=== PATIENT | male | born 1935 | race Caucasian/White ===

== ENCOUNTER 2019-11-23 13:11 | Inpatient (IN) | payer MEDICARE, OTHER, SELFPAY ==
[2019-11-23] VITALS (13 sets, daily range): BP systolic 120–142; BP diastolic 59–93; PULSE 72–87; RESP 16–30; TEMP 36–36.4; O2SAT 83–99; BMI 32.1
--- NOTE | 2019-11-23 13:15 | DI.RAD.S_ITS ---
PROCEDURE: XR CHEST 2V INDICATIONS: shortness of breath TECHNIQUE: 2 views of the chest were acquired. COMPARISON: None. FINDINGS: Surgical changes and devices: None. Lungs and pleura: Blunting of the left costophrenic angle and the right costophrenic angle is present with partial obscuration of the diaphragms. No large. Pulmonary consolidation is evident. The pulmonary vascular markings are increased with prominent perihilar interstitial markings noted. There is no pneumothorax. Mediastinum: Mediastinal contours are normal. Heart size is enlarged. There is aortic atherosclerosis. There appears to be a hiatal hernia. Bones and chest wall: No suspicious bony abnormalities. Soft tissues appear unremarkable. IMPRESSION: 1. Cardiomegaly with findings suggesting pulmonary edema. Please correlate clinically. 2. Small bilateral effusions and associated atelectasis. Please correlate clinically to exclude superimposed pneumonia. 3. Probable hiatal hernia. Dictated by: Chao Umaña M.D. on 11/23/2019 at 12:48 Approved by: Chao Umaña M.D. on 11/23/2019 at 12:53
--- NOTE | 2019-11-23 13:39 | ED_ITS ---
HPI - SOB/Dyspnea General Chief Complaint: Shortness of Breath/Dyspnea Stated Complaint: CONGESTIVE HEART FAILURE Time Seen by Provider: 11/23/19 13:36 Source: patient Mode of arrival: Ambulatory Limitations: no limitations History of Present Illness HPI Narrative: This is an 84-year-old gentleman who comes emergency department with complaint of right lower extremity swelling, some edema and weeping. Patient describes that he does not have any pain. He states he props his legs up doesn't seem to be much improvement. His daughter states really been 2 weeks. Patient states he has also had some increasing shortness of breath. He typically has shortness of breath but it's been a little bit worse and finds t hat he gets more short of breath when he exerts himself. He has had a cough he states that's more from his throat. It's been nonproductive. He denies any chest pain or pressure. No syncope. No lightheadedness. Patient has history of Alzheimer's chronic kidney disease as well as COPD, CHF, diabetes type 2. Dyslipidemia, hypertension, obstructive sleep apnea, osteoporosis and primary idiopathic dilated cardiomyopathy and right bundle branch block according to his problem list from the [employer]. Patient denies any prior surgical history. He quit smoking about 20 years ago. He has about 1 alcoholic drink weekly, occasionally has edible THC. No allergies to medications. He follows with dermatology neurologist. His daughter is at bedside and help coordinate his medical care for the last 3 years. Appears that she is his DPOA. Related Data Home Medications Medication Instructions Recorded Confirmed albuterol sulfate [ProAir HFA] 2 puff INHALATION Q4H PRN 11/23/19 11/23/19 carvedilol 12.5 mg PO BID 11/23/19 11/23/19 clotrimazole 1 applic TOPICAL DIRECTED 11/23/19 11/23/19 diphenhydramine HCl [Benadryl] 25 mg PO TID 11/23/19 11/23/19 ferrous sulfate 325 mg PO DAILY 11/23/19 11/23/19 folic acid 1 mg PO DAILY 11/23/19 11/23/19 furosemide 40 mg PO MOWEFR 11/23/19 11/23/19 insulin glargine [Lantus U-100 30 unit SUBCUT DAILY 01/02/20 01/02/20 Insulin] melatonin 3 mg PO BEDTIME PRN 11/23/19 11/23/19 methotrexate sodium 10 mg PO QWEEK 11/23/19 11/23/19 mupirocin calcium 1 applic TOPICAL TID 11/23/19 11/23/19 telmisartan 40 mg PO DAILY 11/23/19 11/23/19 tiotropium bromide 1 cap INHALATION DAILY 11/23/19 11/23/19 venlafaxine 37.5 mg PO DAILY 11/23/19 11/23/19 Allergies Allergy/AdvReac Type Severity Reaction Status Date / Time No Known Drug Allergies Allergy Verified 11/23/19 18:42 Review of Systems Review of Systems ROS Unobtainable: All systems reviewed & are unremarkable except as noted in HPI and below Patient History Medical History (Updated 11/23/19 @ 17:47 by Austin Anguiano RN) Age related osteoporosis (Acute) Alzheimer's dementia (Acute) Arthritis of right hip (Acute) Cataract (Acute) Congestive heart failure (CHF) (Acute) COPD (chronic obstructive pulmonary disease) (Acute) Diabetes type 2, controlled (Acute) Hard of hearing (Acute) Hyperlipemia (Acute) Hypertension (Acute) Umbilical hernia (Acute) Social History household members: family Smoking Status: Former smoker alcohol intake: current Smoking Status: Former smoker alcohol intake frequency: a few times a month Substance Use Type: marijuana Exam Narrative Exam Narrative: GENERAL: Alert and oriented x three, obese male in mild distress. HEENT: Head normocephalic, atraumatic, EOMI, pupils reactive, face symmetric, moist mucous membranes NECK: Supple, full range of motion CARDIOVASCULAR: Regular rate and rhythm without murmurs, rubs or gallops. RESPIRATORY: Breath sounds equal bilaterally, no wheezes, patient has crackles bilaterally. No rhonchi. Tachypnea. No accessory muscle use. ABDOMEN: Soft, nontender. Normoactive bowel sounds all 4 quadrants. No guarding or rebound, rigidity, no mass : No CVA tenderness EXTREMITIES: Normal range of motion, no clubbing. Patient has 2+ bilateral lower extremity swelling with pitting edema. Patient has some very superficial scratches with some weeping serous fluid. Neurovascularly intact NEUROLOGICAL: Cranial nerves II through XII grossly intact. Moving all extremities SKIN: Warm, dry, no petechiae, no rashes or lesions. Initial Vital Signs Initial Vital Signs: Vital Signs Temperature 96.8 F L 11/23/19 13:15 Pulse Rate 77 11/23/19 13:15 Respiratory Rate 22 11/23/19 13:15 Blood Pressure 120/59 L 11/23/19 13:15 Pulse Oximetry 92 11/23/19 13:15 Course Orders Ordered: ED Orders 11/23/19 13:15 XR chest 2V Stat EKG-12 Lead Stat Measure peak expiratory flow ONCE RT Consult Eval and Treat Now 11/23/19 13:45 B Type Natriuretic Peptide Stat Complete Blood Count AUTO DIFF Stat Comprehensive Metabolic Panel Stat Lactate (Lactic Acid) Stat Troponin & CK Cardiac Panel Stat Acetaminophen (Tylenol) 650 mg PO Q6HR PRN PRN Reason: Fever/Mild Pain (1-3) Albuterol (Ventolin Hfa) 2 puff INH Q4H PRN PRN Reason: Wheezing Carvedilol (Coreg) 12.5 mg PO BID WILLARD Dextrose (D50w) 25 gm IV PRN PRN PRN Reason: Hypoglycemia Docusate Sodium (Colace) 100 mg PO BID WILLARD Furosemide (Lasix) 60 mg IV Q12H WILLARD Heparin Sodium (Porcine) (Heparin) 5,000 unit SUBCUT BID WILLARD Ceftriaxone Sodium/Dextrose (Rocephin) 1 gm in 50 mls @ 100 mls/hr IV Q24H WILLARD Last Admin: 11/23/19 18:59 Dose: 100 mls/hr Documented by: GPEREZ Sodium Chloride (Normal Saline 0.9%) 250 mls @ 21 mls/hr IV Q24H PRN PRN Reason: Flush Last Admin: 11/23/19 19:04 Dose: 21 mls/hr Documented by: GPEREZ Insulin Aspart (Novolog Flexpen) 12 unit SUBCUT 1700 WILLARD Insulin Aspart (Novolog Flexpen) 0 unit SUBCUT ACHS WILLARD; Protocol Insulin Glargine (Lantus Solostar (Pen)) 28 unit SUBCUT 0800 WILLARD Magnesium Hydroxide (Milk Of Magnesia) 30 ml PO DAILY PRN PRN Reason: Constipation Melatonin (Melatonin) 3 mg PO BEDTIME PRN PRN Reason: Insomnia Sodium Chloride (Normal Saline 0.9% Flush) 10 ml IV PRN PRN PRN Reason: Flush Last Admin: 11/23/19 19:05 Dose: 10 ml Documented by: GPEREZ Sodium Chloride (Normal Saline 0.9% Flush) 10 ml IV BID WILLARD Telmisartan (Micardis) 40 mg PO DAILY WILLARD Tiotropium Hartsel (Spiriva) 18 mcg INH DAILY WILLARD Venlafaxine HCl (Effexor Xr) 37.5 mg PO DAILY WILLARD Discontinued Medications Furosemide (Lasix) 60 mg IV NOW ONE Stop: 11/23/19 14:21 Last Admin: 11/23/19 14:39 Dose: 60 mg Documented by: HFARRINGTO Vital Signs Vital signs: Vital Signs - 8 hr 11/23/19 13:15 11/23/19 13:48 11/23/19 14:30 Temperature 96.8 F L Pulse Rate 77 78 78 Respiratory Rate 22 25 H 23 Blood Pressure 120/59 L Blood Pressure [Left Arm] 120/60 126/61 Pulse Oximetry 92 96 96 11/23/19 15:00 11/23/19 15:38 Temperature Pulse Rate 85 87 Respiratory Rate 17 28 H Blood Pressure Blood Pressure [Left Arm] 125/60 131/64 Pulse Oximetry 96 96 MDM - SOB/Dyspnea Lab Data Attestation: I reviewed the patient's lab results. Result diagrams: 11/23/19 13:45 11/23/19 13:45 Labs: Lab Results 11/23/19 11/23/19 11/23/19 Range/Units 13:45 13:45 13:45 WBC 7.5 (4.5-11.0) X10^3/uL RBC 4.25 L (4.5-5.9) X10^6/uL Hgb 12.7 L (13.5-17.5) g/dL Hct 39.4 L (41-53) % MCV 92.6 (80-100) fL MCH 29.8 (26-34) PG MCHC 32.2 (30-36) % RDW 17.6 H (11.6-14.8) % Plt Count 234 (150-400) X10^3/uL Neut % (Auto) 75.8 H (50-75) % Lymph % (Auto) 13.6 L (25-40) % [place] % (Auto) 7.4 (3-14) % Eos % (Auto) 2.3 (2-4) % Baso % (Auto) 0.9 (0-2) % Neut # (Auto) 5700 (6208-6126) /uL Lymph # (Auto) 1000 L (5781-0350) /uL [place] # (Auto) 600 (0-900) /uL Eos # (Auto) 200 (0-450) /uL Baso # (Auto) 100 (0-100) /uL Sodium 142 (137-145) mmol/L Potassium 4.5 (3.4-5.1) mmol/L Chloride 105 (98-107) mmol/L Carbon Dioxide 29 (22-32) mmol/L BUN 60 H (9-20) mg/dL Creatinine 1.40 H (0.66-1.25) mg/dL Estimated GFR 48.4 L (>60) mL/min BUN/Creatinine Ratio 42.9 H (6-22) Glucose 170 H (80-110) mg/dL Lactate 1.3 (0.7-2.1) mmol/L Calcium 8.4 (8.4-10.2) mg/dL Total Bilirubin 0.4 (0.2-1.3) mg/dL AST 44 (17-59) IU/L ALT 47 (<50) IU/L Alkaline Phosphatase 94 (38-126) U/L Total Creatine Kinase (55-170) U/L CK-MB (CK-2) CK-MB (CK-2) Rel Index Troponin I (0.01-0.034) ng/mL B-Natriuretic Peptide (<100) Total Protein 6.3 (6.3-8.2) g/dL Albumin 3.6 (3.5-5.0) g/dL Globulin 2.7 (1.7-4.1) g/dL Albumin/Globulin Ratio 1.3 (1.0-2.8) 11/23/19 11/23/19 Range/Units 13:45 13:45 WBC (4.5-11.0) X10^3/uL RBC (4.5-5.9) X10^6/uL Hgb (13.5-17.5) g/dL Hct (41-53) % MCV (80-100) fL MCH (26-34) PG MCHC (30-36) % RDW (11.6-14.8) % Plt Count (150-400) X10^3/uL Neut % (Auto) (50-75) % Lymph % (Auto) (25-40) % [place] % (Auto) (3-14) % Eos % (Auto) (2-4) % Baso % (Auto) (0-2) % Neut # (Auto) (1567-8887) /uL Lymph # (Auto) (3234-8509) /uL [place] # (Auto) (0-900) /uL Eos # (Auto) (0-450) /uL Baso # (Auto) (0-100) /uL Sodium (137-145) mmol/L Potassium (3.4-5.1) mmol/L Chloride (98-107) mmol/L Carbon Dioxide (22-32) mmol/L BUN (9-20) mg/dL Creatinine (0.66-1.25) mg/dL Estimated GFR (>60) mL/min BUN/Creatinine Ratio (6-22) Glucose (80-110) mg/dL Lactate (0.7-2.1) mmol/L Calcium (8.4-10.2) mg/dL Total Bilirubin (0.2-1.3) mg/dL AST (17-59) IU/L ALT (<50) IU/L Alkaline Phosphatase (38-126) U/L Total Creatine Kinase 39 L (55-170) U/L CK-MB (CK-2) TNP CK-MB (CK-2) Rel Index TNP Troponin I 0.027 (0.01-0.034) ng/mL B-Natriuretic Peptide 1850 H (<100) Total Protein (6.3-8.2) g/dL Albumin (3.5-5.0) g/dL Globulin (1.7-4.1) g/dL Albumin/Globulin Ratio (1.0-2.8) Imaging Data Chest x-ray: Radiologist's Impression: [address] [address] XRay Report Signed Patient: Tj Bull RMR#: [id number] : 1935Acct:[id number] Age/Sex: 84 / MDate of Service: 11/23/19 Loc: ED Accession Number: [id number] Procedure: XR chest 2V Ordering Provider: Rayne Acosta D.O. PROCEDURE: XR CHEST 2V INDICATIONS: shortness of breath TECHNIQUE: 2 views of the chest were acquired. COMPARISON: None. FINDINGS: Surgical changes and devices: None. Lungs and pleura: Blunting of the left costophrenic angle and the right costophrenic angle is present with partial obscuration of the diaphragms. No large. Pulmonary consolidation is evident. The pulmonary vascular markings are increased with prominent perihilar interstitial markings noted. There is no pneumothorax. Mediastinum: Mediastinal contours are normal. Heart size is enlarged. There is aortic atherosclerosis. There appears to be a hiatal hernia. Bones and chest wall: No suspicious bony abnormalities. Soft tissues appear unremarkable. IMPRESSION: 1. Cardiomegaly with findings suggesting pulmonary edema. Please correlate clinically. 2. Small bilateral effusions and associated atelectasis. Please correlate clinically to exclude superimposed pneumonia. 3. Probable hiatal hernia. Dictated by: Chao Umaña M.D. on 11/23/2019 at 12:48 Approved by: Chao Umaña M.D. on 11/23/2019 at 12:53 ECG Data Attestation: I personally reviewed and interpreted this ECG as follows: Prior ECG tracings: not available for review Interpretation: Sinus rhythm right bundle branch block. Rate of 76 P are 195 QRS of 171 QTC 472. Patient has some depression in lateral lead. Inversion in V1 V2. Patient has an EKG from earlier today but no other prior EKGs available. MDM Narrative Medical decision making narrative: Patient had a DVT formal ultrasound today which was negative but does show some superficial edema. Report did come with the patient. Patient also had a chest x-ray which showed cardiomegaly with interstitial edema, consistent with CHF. Patient clinically appears to be in CHF. I don't have any prior labs or EKGs available. We did contact [facility] as daughter thought he might have a prior but there are none available. According the patient's med list he is on Lasix 40 mg daily, an Arb, carvedilol as well as insulin, tiotropium an albuterol and venlafaxine. Patient has pulmonary edema, bilateral effusions, cardiomegaly, bnp of 1800. RBBB some depression in lateral leads but no priors for comparision. Positive for crackles on exam. Patient drops to 83% when O2 is turned off in the room. Dicussed with Dr. Dillon the hospitalist, he accepts plan for inpatient. Patient received lasix in ED. Discharge Plan Departure Patient Disposition: Admitted As Inpatient Clinical Impression: CHF exacerbation Discharge Date/Time: 11/23/19 17:00 Admit Date/Time: 11/23/19 15:49 Admit Provider: Jonathan Dillon
[2019-11-23 13:59] LABS: Add Manual Diff / Slide Review NO; Basophils Absolute Auto 100 /uL (0-100); Basophils Percent Auto 0.9 % (0-2); Eosinophils Absolute Auto 200 /uL (0-450); Eosinophils Percent Auto 2.3 % (2-4); Hematocrit 39.4 % (41-53); Hemoglobin 12.7 g/dL (13.5-17.5); Lymphocytes Absolute Auto 1000 /uL (1100-4500); Lymphocytes Percent Auto 13.6 % (25-40); Mean Corpuscular HGB Conc 32.2 % (30-36); Mean Corpuscular Hemoglobin 29.8 PG (26-34); Mean Corpuscular Volume 92.6 fL (80-100); Monocytes Absolute Auto 600 /uL (0-900); Monocytes Percent Auto 7.4 % (3-14); Neutrophils Absolute Auto 5700 /uL (1500-7000); Neutrophils Percent Auto 75.8 % (50-75); Platelet Count 234 X10^3/uL (150-400); Red Blood Cell Count 4.25 X10^6/uL (4.5-5.9); Red Cell Distribution Width 17.6 % (11.6-14.8); White Blood Cell Count 7.5 X10^3/uL (4.5-11.0)
--- NOTE | 2019-11-23 14:06 | PC.NURSE ---
pt O2 sats 88% on room air, pt placed on 2L nasal cannula
[2019-11-23 14:15] LABS: Alanine Aminotransferase 47 IU/L (<50); Albumin 3.6 g/dL (3.5-5.0); Albumin Globulin Ratio 1.3 (1.0-2.8); Alkaline Phosphatase 94 U/L (38-126); Aspartate Aminotransferase 44 IU/L (17-59); BUN Creatinine Ratio 42.9 (6-22); Bilirubin Total 0.4 mg/dL (0.2-1.3); Blood Urea Nitrogen 60 mg/dL (9-20); Calcium 8.4 mg/dL (8.4-10.2); Carbon Dioxide 29 mmol/L (22-32); Chloride 105 mmol/L (98-107); Creatine Kinase 39 U/L (55-170); Estimated Glomerular Filt Rate 48.4 mL/min (>60); Globulin 2.7 g/dL (1.7-4.1); Glucose 170 mg/dL (80-110); HEMOLYSIS 15 (0-50); Potassium 4.5 mmol/L (3.4-5.1); Sodium 142 mmol/L (137-145); Total Protein 6.3 g/dL (6.3-8.2)
[2019-11-23 14:16] LABS: Lactate (Lactic Acid) 1.3 mmol/L (0.7-2.1)
[2019-11-23 14:27] LABS: Troponin I 0.027 ng/mL (0.01-0.034)
[2019-11-23 14:37] LABS: B Type Natriuretic Peptide 1850 (<100)
[2019-11-23] MEDS: FUROSEMIDE 100 MG/10 ML VIAL 60 MG IV ×2 (14:39→20:54)
--- NOTE | 2019-11-23 16:33 | PC.NURSE ---
report to hazel velasquez
--- NOTE | 2019-11-23 18:05 | P.HP_ITS ---
History of Present Illness History of Present Illness Date Patient Seen: 11/23/19 Time Patient Seen: 18:06 Chief complaint: CONGESTIVE HEART FAILURE Narrative: Mr. Tj Bull is an 84-year-old male with past medical history of dementia, remote bullous pemphigoid, COPD, diabetes, hypertension, hyperlipidemia, and possible CHF who presented to the emergency room with shortness of breath, right lower extremity pain, and lower extremity edema. History is obtained from the patient as well as his daughter who helps to take care of him. For the past week and a half the daughter has noticed that he has been having worsening shortness of breath, weight gain, worsening lower extremity edema, and profound fatigue. The patient endorses all the above but states that it is only been present for the past 3 days. She states his shortness of breath initially started just with dyspnea on exertion, however now even at rest he appears short of breath and this has been going on for the past 3 days. Both also note some pain in his right lower extremity, with worsening swelling and some redness over the past 3 days. Family has also noted a weight gain of approximately 10 lb based on today's weight. The weight gain is likely over the past week and a half, but the family is unsure as they do not weigh him regularly. He denies any chest pain, fevers, chills, nausea, vomiting. He has no abdominal pain, difficulty voiding, diarrhea, or constipation however he does need to take prunes to stay regular. He initially went to the [facility] for an evaluation, they did a chest x-ray and a right lower extremity ultrasound. The chest x-ray showed vascular congestion and an enlarged heart size. The right lower extremity ultrasound was negative for DVT. They were told to come to the emergency room in [place] for further management. The patient has recently moved here and has not established care. Family is not fully aware of all of his medical issues. Records were sent from the [facility] which helped to clarify his past medical history. The family does note that he was on hospice, but turned around when care providers changed and he has been doing fairly well recently. He does have some dementia, which they relate as Alzheimer, but the true cause is unknown. 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 He quit smoking 20 years ago, he rarely drinks alcohol, he denies illicit substance use, but daughter notes that he does ingest marijuana edibles. In the emergency room, per the ED provider when taken off of nasal cannula he desaturated to 83%. He is saturating well on 2 L nasal cannula. Otherwise his vital signs were unremarkable. He was given 60 mg of IV Lasix. Laboratory studies revealed a WBC of 7.5, hemoglobin 12.7, platelet 234. Chemistries notable for BUN of 60, creatinine 1.4 (unknown baseline), glucose 170, normal lactate, troponin 0.027, BNP 1850. Chest x-ray shows interstitial prominence consistent with volume overload, cardiomegaly, and small bilateral pleural eff usions. EKG showing a right bundle branch block, which is of unknown duration per naval physician's notes. There does not appear to be evidence of active ischemia, and there are no significant changes over the course of today. He is admitted to Medicine for further evaluation of his decompensated heart failure. Patient History Medical History (Updated 11/23/19 @ 17:47 by Austin Anguiano RN) Age related osteoporosis (Acute) Alzheimer's dementia (Acute) Arthritis of right hip (Acute) Cataract (Acute) Congestive heart failure (CHF) (Acute) COPD (chronic obstructive pulmonary disease) (Acute) Diabetes type 2, controlled (Acute) Hard of hearing (Acute) Hyperlipemia (Acute) Hypertension (Acute) Umbilical hernia (Acute) Family & Social History Safety & Behavioral: Feels Safe in Current Yes Environment Been Physically Hurt or No Threatened By a Person Tobacco & Substance use: Smoking Status Former smoker alcohol intake frequency a few times a month Substance Use Type marijuana Meds Home Medications and Allergies Home Medications Medication Instructions Recorded Confirmed Type albuterol sulfate [ProAir HFA] 2 puff INHALATION Q4H PRN 11/23/19 11/23/19 History carvedilol 12.5 mg PO BID 11/23/19 11/23/19 History clotrimazole 1 applic TOPICAL DIRECTED 11/23/19 11/23/19 History diphenhydramine HCl [Benadryl] 25 mg PO TID 11/23/19 11/23/19 History ferrous sulfate 325 mg PO DAILY 11/23/19 11/23/19 History folic acid 1 mg PO DAILY 11/23/19 11/23/19 History furosemide 40 mg PO MOWEFR 11/23/19 11/23/19 History insulin glargine [Lantus U-100 30 unit SUBCUT DAILY 11/23/19 11/23/19 History Insulin] melatonin 3 mg PO BEDTIME PRN 11/23/19 11/23/19 History methotrexate sodium 10 mg PO QWEEK 11/23/19 11/23/19 History mupirocin calcium 1 applic TOPICAL TID 11/23/19 11/23/19 History telmisartan 40 mg PO DAILY 11/23/19 11/23/19 History tiotropium bromide 1 cap INHALATION DAILY 11/23/19 11/23/19 History venlafaxine 37.5 mg PO DAILY 11/23/19 11/23/19 History Allergies Allergy/AdvReac Type Severity Reaction Status Date / Time No Known Drug Allergies Allergy Verified 11/23/19 18:42 Review of Systems Review of Systems Narrative: All other systems reviewed with the patient and are negative unless otherwise stated. Exam Vital Signs (past 8 hours): - 11/23/19 13:15 11/23/19 13:48 11/23/19 14:30 Temperature 96.8 F L Pulse Rate 77 78 78 Respiratory Rate 22 25 H 23 Blood Pressure 120/59 L Blood Pressure [Left Arm] 120/60 126/61 Pulse Oximetry 92 96 96 11/23/19 15:00 11/23/19 15:38 11/23/19 16:00 Temperature Pulse Rate 85 87 77 Respiratory Rate 17 28 H 30 H Blood Pressure Blood Pressure [Left Arm] 125/60 131/64 126/67 Pulse Oximetry 96 96 99 11/23/19 16:14 Temperature Pulse Rate 78 Respiratory Rate 19 Blood Pressure Blood Pressure [Left Arm] 126/67 Pulse Oximetry 99 Oxygen Delivery Method Nasal Cannula Oxygen Flow Rate 2 Narrative Exam Narrative: GENERAL APPEARANCE: Elderly male, slumped in hospital bed, in no acute distress. He does get winded with prolonged speaking. SKIN: Inspection of the skin reveals some small bruising in his upper ext remities bilaterally. There are no bullous appearing lesions. His right lower extremity is erythematous and warm on the anterior aspect. Area of erythema extends from just below his knee to his ankle, and is approximately half the circumference of his calf. There are also some lacerations on the anterior part of his right lower extremity which appear to be scratch clements. HEENT: The sclerae were anicteric and conjunctivae were pink and moist. Extraocular movements were intact and pupils were equal, round with normal accommodation. External inspection of the ears and nose showed no scars, le sions, or masses. Lips, teeth, and gums showed normal mucosa. The oral mucosa, hard and soft palate, tongue and posterior pharynx were unremarkable. NECK: Supple and symmetric. There was no thyroid enlargement, and no tenderness, or masses were felt. + JVD CHEST: Normal AP diameter and normal contour without any kyphoscoliosis. LUNGS: Diminished breath sounds at the left lung base, bibasilar crackles slightly more prominent on the right. No wheezing. CARDIOVASCULAR: There was a regular rate and rhythm without any murmurs, gallops, rubs. Peripheral pulses were 2+ and symmetric. ABDOMEN: Soft and nontender with normal bowel sounds. No ascites was noted. MUSCULOSKELETAL: There was no tenderness or effusions noted. Muscle strength and tone were normal. EXTREMITIES: No cyanosis, clubbing. There is 1 to 2+ pitting edema bilaterally in the lower extremities. With erythema and warmth as noted above. NEUROLOGIC: Alert and oriented x 3. Normal affect. Some cognitive impairment is evident. Strength is +5/5 in the Upper Extremities and Lower Extremities Bilaterally. Sensation to touch was normal. Objective ECG Impression: Right bundle-branch block, no evidence of active ischemia. Normal sinus rhythm. Imaging Chest x-ray: My impression: Small bilateral pleural effusions, cardiomegaly, moderate interstitial prominence consistent with fluid overload. Labs Result Diagrams: 11/23/19 13:45 11/23/19 13:45 Labs: Laboratory Results - last 24 hr 11/23/19 11/23/19 11/23/19 13:45 13:45 13:45 WBC 7.5 RBC 4.25 L Hgb 12.7 L Hct 39.4 L MCV 92.6 MCH 29.8 MCHC 32.2 RDW 17.6 H Plt Count 234 Neut % (Auto) 75.8 H Lymph % (Auto) 13.6 L [place] % (Auto) 7.4 Eos % (Auto) 2.3 Baso % (Auto) 0.9 Neut # (Auto) 5700 Lymph # (Auto) 1000 L [place] # (Auto) 600 Eos # (Auto) 200 Baso # (Auto) 100 Sodium 142 Potassium 4.5 Chloride 105 Carbon Dioxide 29 BUN 60 H Creatinine 1.40 H Estimated GFR 48.4 L BUN/Creatinine Ratio 42.9 H Glucose 170 H Lactate 1.3 Calcium 8.4 Total Bilirubin 0.4 AST 44 ALT 47 Alkaline Phosphatase 94 Total Creatine Kinase CK-MB (CK-2) CK-MB (CK-2) Rel Index Troponin I B-Natriuretic Peptide Total Protein 6.3 Albumin 3.6 Globulin 2.7 Albumin/Globulin Ratio 1.3 11/23/19 11/23/19 13:45 13:45 WBC RBC Hgb Hct MCV MCH MCHC RDW Plt Count Neut % (Auto) Lymph % (Auto) [place] % (Auto) Eos % (Auto) Baso % (Auto) Neut # (Auto) Lymph # (Auto) [place] # (Auto) Eos # (Auto) Baso # (Auto) Sodium Potassium Chloride Carbon Dioxide BUN Creatinine Estimated GFR BUN/Creatinine Ratio Glucose Lactate Calcium Total Bilirubin AST ALT Alkaline Phosphatase Total Creatine Kinase 39 L CK-MB (CK-2) TNP CK-MB (CK-2) Rel Index TNP Troponin I 0.027 B-Natriuretic Peptide 1850 H Total Protein Albumin Globulin Albumin/Globulin Ratio Assessment & Plan Assessment & Plan narrative: Mr. Tj Bull is an 84-year-old male with past medical history of dementia, remote bullous pemphigoid, COPD, diabetes, hypertension, and possible CHF who presented to the emergency room with short ness of breath, right leg pain, and lower extremity edema. He is admitted with decompensated heart failure and RLE cellulitis. 1. Acute decompensated heart failure with unknown ejection fraction, present on admission -suspect reduced ejection fraction based on outpatient notes and patient's medications, however unclear and it is not known when his last echocardiogram was. Clinically he has weight gain, fatigue, JVD, lower extremity edema, bibasilar crackles and an elevated BNP with cardiomegaly on chest x-ray all consistent with heart failure. -continue Lasix 60 mg IV b.i.d. -strict Is and Os, daily weights, 1.5 L fluid restriction -obtain echocardiogram -can continue home coreg 12.5 mg BID (home dosing) and telmisartan 40 mg daily -risk stratify with TSH, A1c, and lipid panel -PT/OT evaluation -dietary consult 2. Acute hypoxemic respiratory failure, present on admission -patient desaturates to 83% on room air per ED report. He is saturating well on 2 L. this is likely secondary to decompensated heart failure above. -continue diuresis and management of heart failure as noted in problem 1. 3. Right lower extremity cellulitis, acute, present on admission -patient with warmth and erythema of his right leg. There is no evidence of purulence. He does have scratch clements and venous stasis changes bilaterally. US for DVT performed at [facility] was negative. -start ceftriaxone 1 g Q 24 hours 4. Diabetes, chronic, present on admission, unknown control - -continue home regimen 28 units of Lantus in a.m., he takes lispro 12 units at dinner time only. -add on sliding scale coverage -A1c as noted above 5. COPD, chronic, stable -no wheezing on exam and acute respiratory failure likely secondary to volume overload. -respiratory eval and treat -continue home Spiriva, and as needed albuterol 6. Hypertension, chronic, stable -continue home medications as noted above in problem 1 7. Elevated creatinine, unknown chronicity -creatinine of 1.4 on admission. Unknown baseline. He has multiple other chronic medical conditions and likely CKD. However there is no previous lab work available to compare. -continue to monitor renal function -avoid nephrotoxic medications -treat underlying decompensated heart failure as noted above in problem 1 -obtain postvoid residual as there is an outpatient renal ultrasound showing a postvoid residual of approximately 400 cc and findings consistent with chronic bladder outlet obstruction. -consider Flomax depending on postvoid residual. -consider repeat renal ultrasound Code: full, patient's surrogate decision maker is his daughter. Dispo: Admitted as inpatient as his stay is likely to exceed 2 midnights DVT: Heparin subcu
--- NOTE | 2019-11-23 18:30 | DI.ECHO.S_ITS ---
[facility] +---------+ : : [address] [place] [address] : : : : [id number] : : : : Phone: [phone] Echocardiogram Report + + :Name: JEREMY LAM Study Date: 11/24/2019 Height: 67 in : :[facility] Weight: 205 lb : : Gender: Male BSA: 2.0 m2 : :: 1935 Age: 84 yrs BP: 133/81 mmHg: :Reason For Study: DECOMPENSATED HF : : Performed By: Christopher Valle : :Referring: EVERT ROSA : + + Interpretation Summary Sinus rhythm with wide QRS complexes. Borderline dilated LV; borderline concentric LVH. EF is 30-35%. There are focal wall motion abnormalities in LCX distribution. There is basal inferolateral, basal anterolateral akinesis, mid-inferolateral and mid- anterolateral akinesis. Stage II diastolic dysfunction. EPSS is 1.4 cm further consistent with cardiomyopathy. No significant valvular abnormalities. There is moderate left pleural effusion. Compared to prior study at [facility] in 2009, cardiomyopathy is unchanged. EF is unchanged at around 30%. However, focal wall motion abnormalities and pleural effusion are newly described. Report given to CAROL Doan at . Procedure: A two-dimensional transthoracic echocardiogram with color flow and Doppler was performed. The study quality was technically good. There is no prior echocardiogram noted for this patient. The patient was in normal sinus rhythm during the exam. Left Ventricle: The left ventricle is borderline dilated. Left ventricular wall thickness is borderline increased. The ejection fraction is estimated to be 30-35%. There are focal wall motion abnormalities in LCX distribution. There is basal inferolateral, basal anterolateral akinesis, mid-inferolateral and mid-anterolateral akinesis. Right Ventricle: The right ventricle is normal size. Right ventricular systolic function is mildly reduced. Atria: The left atrium is moderately dilated. The right atrium is mildly dilated. The interatrial septum is intact with no evidence for an atrial septal defect. Mitral Valve: The mitral valve is normal in structure and function. There is mild to moderate mitral regurgitation. Aortic Valve: The aortic valve is trileaflet. The aortic valve opens well. No aortic regurgitation is present. Tricuspid Valve: The tricuspid valve is normal in structure and function. There is trace tricuspid regurgitation. The right ventricular systolic pressure is estimated to be at least 40 mmHg based on an estimated right atrial pressure of 15 mm Hg. Pulmonic Valve: The pulmonic valve is normal in structure and function. There is trace pulmonic regurgitation. Great Vessels: The aortic root is normal size. The ascending aorta is mildly enlarged. The pulmonary artery is normal size. The IVC is dilated (diameter is greater than 2.1 cm) and it collapses less than 50% with a sniff. This suggests a high right atrial pressure of 15 mm Hg. Pericardium/ Pleura There is no pericardial effusion. There is a moderate left-sided pleural effusion. MMode/2D Measurements & Calculations LVIDd: 6.0 cm LVOT diam: 2.0 cm LVIDs: 4.9 cm Ao root diam: 2.9 cm FS: 17.6 % Aortic Jxn: 2.5 cm EPSS: 1.4 cm asc Aorta Diam: 3.5 cm IVSd: 1.2 cm LVPWd: 1.1 cm LV guzman. diameter/BSA (cm/m^2): 2.9 LV sys. diameter/BSA (cm/m^2): 2.4 LA dimension: 5.1 cm RA long axis: 5.6 cm LA A2 area: 29.8 cm2 RA area: 22.8 cm2 LA A4 area: 24.6 cm2 RA vol: 79.5 ml LA length (vol): 6.4 cm RA : 38.9 ml/m2 LA vol: 96.7 ml IVC diam: 2.5 cm LA vol index: 47.3 ml/m2 RVD1 (basal): 4.4 cm RVD2 (mid): 4.3 cm Doppler Measurements & Calculations Ao V2 max: 131.4 cm/sec LVOT Max Jacky: 80.8 cm/sec Ao V2 mean: 96.1 cm/sec LV V1 max P.6 mmHg Ao max P.9 mmHg LV V1 VTI: 16.3 cm Ao mean P.9 mmHg ALBIN(I,D): 2.0 cm2 Ao V2 VTI: 27.0 cm ALBIN(V,D): 2.0 cm2 sev ratio: 0.60 ALBIN indexed to BSA (cm^2/m^2): 0.96 MV E max jacky: 103.8 cm/sec TR max jacky: 251.4 cm/sec MV A max jacky: 48.9 cm/sec TR max P.3 mmHg MV E/A: 2.1 PA V2 max: 74.2 cm/sec Med Peak E' Jacky: 2.7 cm/sec PA V2 mean: 53.9 cm/sec E/E' med: 37.9 PA mean P.3 mmHg Lat Peak E' Jacky: 4.5 cm/sec PA pr(Accel): 39.1 mmHg E/E' lat: 22.9 PA Accel Time: 0.10 sec E/e' average: 30.4 MV dec time: 0.19 sec SV(LVOT): 52.8 ml Electronically signed by: Noemi Retana M.D. on Reading Physician:11/24/2019 06:44 PM
[2019-11-23] MEDS: CEFTRIAXONE 1 GM/50 ML FROZ.PIGGY IV (18:59)
[2019-11-23] MEDS: SODIUM CHLORIDE 0.9% 250 ML 21 ML IV (19:04)
[2019-11-23] MEDS: SODIUM CHLORIDE 0.9% FLUSH 10 ML IV ×2 (19:05→20:55)
[2019-11-23] MEDS: DOCUSATE 100 MG CAPSULE PO (20:59)
[2019-11-23] MEDS: carvediloL 12.5 MG TABLET PO (20:59)
[2019-11-23] MEDS: HEPARIN 5,000 UNIT/ML VIAL 5000 UNIT SUBCUT (20:59)
--- NOTE | 2019-11-23 22:41 | PC.ADMIT ---
[address] Admission Note: The patient,Tj Bull,84 y/o, was given written information regarding hospital policies, unit procedures and contact persons. Patient's smoking status: Former smoker. Pt arrived to room 208 at approx 1645. able to trans to bed with 1-2 pa. SOB with activity and rest. 2L NC sats 96%. Denies pain. Oriented to room and call system. Chronic wounds noted to buttocks; photos taken on document camera. Support dtr at bedside helping with admission questions. Fluid restriction implemented per MD orders. Bed alarm on for safety. Advised pt to call staff for assistance. Vital Signs - 8 hr 11/23/19 15:00 11/23/19 15:38 11/23/19 16:00 Temperature Pulse Rate 85 87 77 Respiratory Rate 17 28 H 30 H Blood Pressure Blood Pressure [Left Arm] 125/60 131/64 126/67 Pulse Oximetry 96 96 99 11/23/19 16:14 11/23/19 16:45 11/23/19 18:37 Temperature 97.3 F L Pulse Rate 78 81 Respiratory Rate 19 20 Blood Pressure 136/93 H Blood Pressure [Left Arm] 126/67 Pulse Oximetry 99 98 96 11/23/19 19:36 11/23/19 19:53 11/23/19 21:13 Temperature 97.3 F L Pulse Rate 82 72 Respiratory Rate 18 16 Blood Pressure 142/81 H Blood Pressure [Left Arm] Pulse Oximetry 98 97
[2019-11-24] VITALS (11 sets, daily range): BP systolic 122–137; BP diastolic 69–81; PULSE 61–74; RESP 16–18; TEMP 36–36.6; O2SAT 88–98; BMI 32.1
--- NOTE | 2019-11-24 05:14 | PC.NURSE ---
Patient will desat to the 60-70's when standing on 2L by NC.
[2019-11-24 07:16] LABS: Add Manual Diff / Slide Review NO; Basophils Absolute Auto 0 /uL (0-100); Basophils Percent Auto 0.7 % (0-2); Eosinophils Absolute Auto 300 /uL (0-450); Eosinophils Percent Auto 4.5 % (2-4); Hematocrit 38.1 % (41-53); Hemoglobin 12.1 g/dL (13.5-17.5); Lymphocytes Absolute Auto 900 /uL (1100-4500); Lymphocytes Percent Auto 14.6 % (25-40); Mean Corpuscular HGB Conc 31.8 % (30-36); Mean Corpuscular Hemoglobin 29.4 PG (26-34); Mean Corpuscular Volume 92.6 fL (80-100); Monocytes Absolute Auto 700 /uL (0-900); Monocytes Percent Auto 11.2 % (3-14); Neutrophils Absolute Auto 4500 /uL (1500-7000); Platelet Count 235 X10^3/uL (150-400); Red Blood Cell Count 4.11 X10^6/uL (4.5-5.9); Red Cell Distribution Width 17.7 % (11.6-14.8); White Blood Cell Count 6.5 X10^3/uL (4.5-11.0)
[2019-11-24 07:31] LABS: BUN Creatinine Ratio 45.8 (6-22); Blood Urea Nitrogen 55 mg/dL (9-20); Calcium 8.3 mg/dL (8.4-10.2); Carbon Dioxide 28 mmol/L (22-32); Chloride 105 mmol/L (98-107); Cholesterol 90 mg/dL (140-199); Estimated Glomerular Filt Rate 57.8 mL/min (>60); Glucose 94 mg/dL (80-110); HDL Cholesterol 29 mg/dL (40-60); HEMOLYSIS < 15 (0-50); Hemoglobin A1C% w Est Avg Glu 5.9 % (4.0-6.0); LDL Cholesterol Calculated 48 mg/dL (<100); Magnesium 2.1 mg/dL (1.6-2.3); Potassium 4.3 mmol/L (3.4-5.1); Sodium 140 mmol/L (137-145); Triglycerides 63 mg/dL (35-150)
[2019-11-24 08:01] LABS: TSH w/ Reflex to FT4 4.68 uIU/mL (0.47-4.68)
[2019-11-24] MEDS: HEPARIN 5,000 UNIT/ML VIAL 5000 UNIT SUBCUT ×2 (08:57→21:14)
[2019-11-24] MEDS: DOCUSATE 100 MG CAPSULE PO ×2 (08:57→21:14)
[2019-11-24] MEDS: TELMISARTAN 40 MG TABLET PO (08:57)
[2019-11-24] MEDS: VENLAFAXINE ER 37.5 MG CAP PO (08:57)
[2019-11-24] MEDS: carvediloL 12.5 MG TABLET PO ×2 (08:57→21:14)
[2019-11-24] MEDS: FUROSEMIDE 100 MG/10 ML VIAL 60 MG IV ×2 (09:00→19:46)
--- NOTE | 2019-11-24 09:00 | CM.DANOTE ---
Addendum entered by Kim Kim LPN 11/24/19 13:43: Met this afternoon with pt's DPOA daughter Gerald. She clarifies that she and her have cared for pt for the last 3 years. Prior to this she states her sister was the caregiver, pt's health failed under her care and her sister had health issues that no longer supported this setup. The sister is no longer involved in any way in the patient's care. POLST: is noted: signed by Gearld as DPOA in 2017 and with DNAR and Medical Interventions: Limited listed. OT Isaura was just finishing up a treatment session and noted that the therapists were recommending a d/c to the home setting and home health services. Gerald states in the time she has cared for pt he has never had HH. Discussed agency choice list: as no given choice: used vendor lists sep up by CM aviation project manager: for this week: [facility]. Referral to [facility] via phone discussion and fax/CMsp: faxing. Face/Face started. Pt will benefit from HH RN,OT/PT/ICE CREAM VAN VENDOR: pt has needs for home safety eval, energy conservation techniques, wound care, including open areas on buttocks, shower assist, medication management and reconciliation. Confirmed that PCP is Dr. Coffey ([facility]) at the [facility]. Gerald is updated and given [facility] brochure. P: home setting when stable for same with [facility] as noted. Need: signature on Face/Face and final HH orders. Original Note: Discharge Planning/Care Management DCP: assessment: case received, EMR reviewed and met with pt. Introduced self and role. PT is an 84 year old male who admitted yesterday evening to care of hospitalist team. PCP: [facility]: pt was there yesterday and sent from the clinic to ER. Payer: Medicare and for Life Admission status: in review: per JAVON Koch. DPOA: daughter Gerald Malloy: cell: [phone]. Pt is able to state that he does live with Gerald and Bill and documentation confirms same. He is unable at this time to provide and other information re his living situation. Pt carries diagnoses of dementia: type unspecified, COPD, IDDM and now with ? of CHF. He also is noted to have RLE swollen, painful and red. A note does refer to a prior hospice plan and apparently transition off of this program. PT and OT have been ordered. P: discuss in Team Rounds. Reach out to Gerald as more is known to define and assist with d/c issues and options. Advanced directive, confirm from FAMILY Start: 11/23/19 18:36 Freq: Q24H Status: Active Protocol: Document 11/23/19 21:12 GMP (Rec: 11/23/19 21:13 GMP [id number]) Advance Directive, confirm on record Time 21:12 Person contacted pt Copy received No CM Discharge Assessment Start: 11/24/19 08:57 Freq: Status: Active Protocol: Document 11/24/19 08:57 ITV (Rec: 11/24/19 09:00 ITV [id number]) Discharge Planning Assessment Advance Directives? Yes Advance Directives on File No History Provided By Patient,Medical Record Has Patient been admitted in last 30 No days? Prior Living Arrangements House Comment lives with daughter Gerald Malloy and her Jose . Household Members family Is patient alert and oriented? No: alert, not oriented at this time Whiteboard Updated in Patient Room with Yes name and ext. # of Arts Administrator Or Manager Review Status In Process
[2019-11-24] MEDS: SODIUM CHLORIDE 0.9% FLUSH 10 ML IV ×3 (09:01→21:15)
[2019-11-24] MEDS: INSULIN GLARGINE 100 UNIT/ML 3ML PEN 28 UNIT SUBCUT (09:03)
--- NOTE | 2019-11-24 10:17 | PC.NURSE ---
Addendum entered by Nidia Fitzgerald R.N. 11/24/19 14:25: Pts lower legs with with 2+ pitting edema, r.leg is more swollen than l. and is red and warm to touch . states that lower legs are looking better. Daughter in room visiting now. Addendum entered by Nidia Fitzgerald R.N. 11/24/19 11:51: Pt using urinal and voided on the floor, he was also incontinent of urine in his brief. Tj was given 60mg of iv lasix. He is back to bed now and having is echocardiogram done and then will eat lunch. Will do blood sugar after he is done. Original Note: Assess- Patient is A&Ox2, he denies pain. Patient has a lot of skin issues, please see physical assessment. 2 open area's to coccyx and buttocks cleaned and barrier cream applied. Will apply allevyn dressings of barrier cream not sticking to bottom. Pt is forgeful but has not tried to get out of bed this morning. Worked with physical therapy and ambulated with walker and gait belt. His oxygen saturation did drop to 78%. Tj does have course crackles through his lung pena. Given 60mg of iv lasix and patient tolerated this well. Sitting up in chair and watching television.
[2019-11-24] MEDS: TIOTROPIUM BROMIDE 18 MCG INHALER INH (10:23)
--- NOTE | 2019-11-24 10:52 | PM.PN.1 ---
Subjective Subjective Date Patient Seen: 11/24/19 Time Patient Seen: 10:52 Interval history: Mr. Tj Bull is an 84-year-old male with past medical history of dementia, remote bullous pemphigoid, COPD, diabetes, hypertension, hyperlipidemia, and possible CHF who presented to the emergency room with shortness of breath, right lower extremity pain, and lower extremity edema. He is seen today for follow-up of congestive heart failure and right lower extremity cellulitis. Patient states that he feels fine, and denies shortness of breath. He denies right lower extremity pain today. He denies any fevers, chills, nausea, vomiting. He is tolerating a diet and voiding without difficulty. He is still slightly hypoxic at 80% on 2 L. he still has significant bibasilar crackles and lower extremity edema. He put out almost 2 L yesterday, will continue with current regimen for diuresis. He is currently pending an echocardiogram. Exam Vital Signs (past 8 hours): - 11/24/19 04:00 11/24/19 04:45 11/24/19 08:00 Temperature 97.8 F 97.4 F L Pulse Rate 67 74 Respiratory Rate 18 18 Blood Pressure 122/75 137/69 Pulse Oximetry 96 97 98 11/24/19 09:57 11/24/19 10:23 Temperature Pulse Rate 68 Respiratory Rate 16 Blood Pressure Pulse Oximetry 95 88 L Oxygen Delivery Method Room Air Oxygen Flow Rate 2 Narrative Exam Narrative: GENERAL APPEARANCE: Elderly male, slumped in hospital bed, in no acute distress. He does get winded with prolonged speaking but is slightly improved today. SKIN: Inspection of the skin reveals some small bruising in his upper extremities bilaterally. There are no bullous appearing lesions. His right lower extremity is erythematous and warm on the anterior aspect. Area of erythema is improved and has shrunken today to involve 1/4 of his calf circumference. There are also some lacerations on the anterior part of his right lower extremity which appear to be scratch clements. He is mildly tender and warm on his RLE over the area of erythema. This appears improved from previous exam. HEENT: The sclerae were anicteric and conjunctivae were pink and moist. Extraocular movements were intact and pupils were equal, round with normal accommodation. External inspection of the ears and nose showed no scars, lesions, or masses. Lips, teeth, and gums showed normal mucosa. The oral mucosa, hard and soft palate, tongue and posterior pharynx were unremarkable. NECK: Supple and symmetric. There was no thyroid enlargement, and no tenderness, or masses were felt. + JVD CHEST: Normal AP diameter and normal contour without any kyphoscoliosis. LUNGS: Diminished breath sounds at the left lung base, bibasilar crackles slightly more prominent on the right. No wheezing. CARDIOVASCULAR: There was a regular rate and rhythm without any murmurs, gallops, rubs. Peripheral pulses were 2+ and symmetric. ABDOMEN: Soft and nontender with normal bowel sounds. No ascites was noted. MUSCULOSKELETAL: There was no tenderness or effusions noted. Muscle strength and tone were normal. EXTREMITIES: No cyanosis, clubbing. There is 1 to 2+ pitting edema bilaterally in the lower extremities. With erythema and warmth as noted above. NEUROLOGIC: Alert and oriented x 3. Normal affect. Some cognitive impairment is evident. Strength is +5/5 in the Upper Extremities and Lower Extremities Bilaterally. Sensation to touch was normal. Objective Labs Result Diagrams: 11/24/19 06:37 11/24/19 06:37 Labs: Laboratory Results - last 24 hr 11/23/19 11/23/19 11/23/19 13:45 13:45 13:45 WBC 7.5 RBC 4.25 L Hgb 12.7 L Hct 39.4 L MCV 92.6 MCH 29.8 MCHC 32.2 RDW 17.6 H Plt Count 234 Neut % (Auto) 75.8 H Lymph % (Auto) 13.6 L Forrest % (Auto) 7.4 Eos % (Auto) 2.3 Baso % (Auto) 0.9 Neut # (Auto) 5700 Lymph # (Auto) 1000 L Forrest # (Auto) 600 Eos # (Auto) 200 Baso # (Auto) 100 Sodium 142 Potassium 4.5 Chloride 105 Carbon Dioxide 29 BUN 60 H Creatinine 1.40 H Estimated GFR 48.4 L BUN/Creatinine Ratio 42.9 H Glucose 170 H Hemoglobin A1c Lactate 1.3 Calcium 8.4 Magnesium Total Bilirubin 0.4 AST 44 ALT 47 Alkaline Phosphatase 94 Total Creatine Kinase CK-MB (CK-2) CK-MB (CK-2) Rel Index Troponin I B-Natriuretic Peptide Total Protein 6.3 Albumin 3.6 Globulin 2.7 Albumin/Globulin Ratio 1.3 Triglycerides Cholesterol LDL Cholesterol, Calc HDL Cholesterol TSH 11/23/19 11/23/19 11/24/19 13:45 13:45 06:37 WBC 6.5 RBC 4.11 L Hgb 12.1 L Hct 38.1 L MCV 92.6 MCH 29.4 MCHC 31.8 RDW 17.7 H Plt Count 235 Neut % (Auto) 69.0 Lymph % (Auto) 14.6 L Forrest % (Auto) 11.2 Eos % (Auto) 4.5 H Baso % (Auto) 0.7 Neut # (Auto) 4500 Lymph # (Auto) 900 L Forrest # (Auto) 700 Eos # (Auto) 300 Baso # (Auto) 0 Sodium Potassium Chloride Carbon Dioxide BUN Creatinine Estimated GFR BUN/Creatinine Ratio Glucose Hemoglobin A1c Lactate Calcium Magnesium Total Bilirubin AST ALT Alkaline Phosphatase Total Creatine Kinase 39 L CK-MB (CK-2) TNP CK-MB (CK-2) Rel Index TNP Troponin I 0.027 B-Natriuretic Peptide 1850 H Total Protein Albumin Globulin Albumin/Globulin Ratio Triglycerides Cholesterol LDL Cholesterol, Calc HDL Cholesterol TSH 11/24/19 11/24/19 11/24/19 06:37 06:37 06:37 WBC RBC Hgb Hct MCV MCH MCHC RDW Plt Count Neut % (Auto) Lymph % (Auto) Forrest % (Auto) Eos % (Auto) Baso % (Auto) Neut # (Auto) Lymph # (Auto) Forrest # (Auto) Eos # (Auto) Baso # (Auto) Sodium 140 Potassium 4.3 Chloride 105 Carbon Dioxide 28 BUN 55 H Creatinine 1.20 Estimated GFR 57.8 L BUN/Creatinine Ratio 45.8 H Glucose 94 Hemoglobin A1c 5.9 Lactate Calcium 8.3 L Magnesium 2.1 Total Bilirubin AST ALT Alkaline Phosphatase Total Creatine Kinase CK-MB (CK-2) CK-MB (CK-2) Rel Index Troponin I B-Natriuretic Peptide Total Protein Albumin Globulin Albumin/Globulin Ratio Triglycerides 63 Cholesterol 90 L LDL Cholesterol, Calc 48 HDL Cholesterol 29 L TSH 4.68 Assessment & Plan Assessment & Plan narrative: Mr. Tj Bull is an 84-year-old male with past medical history of dementia, remote bullous pemphigoid, COPD, diabetes, hypertension, and possible CHF who presented to the emergency room with shortness of breath, right leg pain, and lower extremity edema. He is admitted with decompensated heart failure and RLE cellulitis. 1. Acute decompensated heart failure with unknown ejection fraction, present on admission -suspect reduced ejection fraction based on outpatient notes and patient's medications, however unclear and it is not known when his last echocardiogram was. Clinically he has weight gain, fatigue, JVD, lower extremity edema, bibasilar crackles and an elevated BNP with cardiomegaly on chest x-ray all consistent with heart failure. -continue Lasix 60 mg IV b.i.d. -strict Is and Os, daily weights, 1.5 L fluid restriction -TTE today pending. -can continue home coreg 12.5 mg BID (home dosing) and telmisartan 40 mg daily -risk stratification: TSH 4.68, Total Cholesterol 90, LDL 48. A1c of 5.9% -PT/OT evaluation -dietary consult 2. Acute hypoxemic respiratory failure, present on admission -patient desaturates to 83% on room air per ED report. He is saturating well on 2 L. this is likely secondary to decompensated heart failure above. -continue diuresis and management of heart failure as noted in problem 1. 3. Right lower extremity cellulitis, acute, present on admission -patient with warmth and erythema of his right leg. There is no evidence of purulence. He does have scratch clements and venous stasis changes bilaterally. US for DVT performed at [facility] was negative. His cellulitis appears to be improving with antibiotic therapy. -continue ceftriaxone 1 g Q 24 hours x 7 days (day 2/7), can transition to oral antibiotics upon discharge. 4. Diabetes, chronic, present on admission, good control - -continue home regimen 28 units of Lantus in a.m., he takes lispro 12 units at dinner time only. -add on sliding scale coverage -A1c of 5.9%, will continue to monitor glucose, this A1c is quite low for an 84 year old male on insulin, will need to be wary of hypoglycemia. 5. COPD, chronic, stable -no wheezing on exam and acute respiratory failure likely secondary to volume overload. -respiratory eval and treat -continue home Spiriva, and as needed albuterol 6. Hypertension, chronic, stable -continue home medications as noted above in problem 1 7. Elevated creatinine, unknown chronicity -creatinine of 1.4 on admission. Slightly improved today to 1.2 with diuresis. Unknown baseline. He has multiple other chronic medical conditions and likely CKD. However there is no previous lab work available to compare. -continue to monitor renal function -avoid nephrotoxic medications -treat underlying decompensated heart failure as noted above in problem 1 -obtain postvoid residual as there is an outpatient renal ultrasound showing a postvoid residual of approximately 400 cc and findings consistent with chronic bladder outlet obstruction. -consider Flomax depending on postvoid residual. -consider repeat renal ultrasound Code: full, patient's surrogate decision maker is his daughter / DPOA. Dispo: Admitted as inpatient. Anticipate discharge in the next 1-2 days based on response to initial therapies. PT/OT evaluations pending, possible home vs short term rehab stay. DVT: Heparin subcu
--- NOTE | 2019-11-24 11:08 | PT.IIE ---
Medical History (Last Updated 11/23/19 @ 17:47 by Austin Anguiano RN) Age related osteoporosis (Acute) Alzheimer's dementia (Acute) Arthritis of right hip (Acute) Cataract (Acute) Congestive heart failure (CHF) (Acute) COPD (chronic obstructive pulmonary disease) (Acute) Diabetes type 2, controlled (Acute) Hard of hearing (Acute) Hyperlipemia (Acute) Hypertension (Acute) Umbilical hernia (Acute) Physical Therapy Inpatient Evaluation/Re-Eval M1 PT/OT-IP Prior Functional Status Start: 11/24/19 08:19 Freq: NEEDED Status: Active Protocol: Document 11/24/19 09:30 HH (Rec: 11/24/19 11:08 [email or web address]) Medical Review Prior Functional Status Medical History Reviewed Yes Communication Per EMR, pt is somewhat demented. Will check with dtr if shes available. Pt is able to make needs known. [place] at baseline. Mobility and Gait Pt states he uses 4WW at all times and mostly home bound. He also said he hasnt had any falls. He is aware of his ongoing SOB and low activity tolerance. Activities of Daily Living and IADL's Pt is independent for ADLs with 4WW. Needed dtr's assistance for IADLs such as grocery shop, laundry and cooking. Prior Functional Level (Other details) Pt has a adjustable bed with bed rails since he has difficulty breathing in supine . Social History Household Members family Living Arrangements House Number of Floors (Floors) One Floor Number of Stairs To Enter/Railing? 5STE with B wide rails. (use one rail at a time) Able to place walker on each step. Home Environment Standard Height Toilet,Walk in Shower Home Equipment Four Wheel Walker,Bedside Commode,Hand Held Shower,Grab Bars Near Toilet Employment Status Retired Additional Social History Comment Pt lives with dtr and her son in law in [facility]. He states his family never left him alone in the house with dtr/ son in law/ mother in law to assist as needed. Per EMR, For the past week and a half the daughter has noticed that he has been having worsening shortness of breath, weight gain, worsening lower extremity edema, and profound fatigue. The patient has recently moved here and has not established care. Family is not fully aware of all of his medical issues. Records were sent from the [facility] which helped to clarify his past medical history. The family does note that he was on hospice, but turned around when care providers changed and he has been doing fairly well recently. He does have some dementia, which they relate as Alzheimer, but the true cause is unknown. M2 PT-IP Current Condition Start: 11/24/19 08:19 Freq: NEEDED Status: Active Protocol: Document 11/24/19 09:30 HH (Rec: 11/24/19 11:08 [email or web address]) Physical Therapy Current Condition Current Condition Evaluation Date 11/24/19 Treatment Diagnosis acute CHF, SOB, generalized weakness, difficulty in walking Onset Date 11/23/19 Weight Bearing Status Weight Bearing Status Full Weight Bearing M3 PT-IP Subjective Start: 11/24/19 08:19 Freq: NEEDED Status: Active Protocol: Document 11/24/19 09:30 HH (Rec: 11/24/19 11:08 [email or web address]) Subjective Physical Therapy Visit Type Type Initial Evaluation Visit Start Time 09:30 Visit Stop Time 10:00 Total Visit Minutes 30 Notes per nursing note, pt's sat dropped to 7x % while standing last night. Number of EMPLOYEE'S REPRESENTATIVE Visits 0 Physical Therapy Visit Comments Patient Comments I feel a lot better today. Patient Goals To get stronger and return home. M4 PT-IP Mobility and Gait Start: 11/24/19 08:19 Freq: NEEDED Status: Active Protocol: Document 11/24/19 09:30 HH (Rec: 11/24/19 11:08 [email or web address]) PT-Bed Mobility Assessment Supine to Sit Supine to Sit Moderate Assistance,Head of Bed Elevated,Bedrails Scooting Scooting to Edge of Bed Contact Guard Assistance PT-Transfer Assessment Sit to and From Stand Sit to and from Stand Minimal Assistance,1 Person Assistance,Use of Upper Extremities Equipment Transfer Assistive Device Gait Belt,4 Wheeled Walker Orthotic/Prosthetic Devices or Brace: No Transfers Transfer Destination Bed,Chair Transfer Technique amb with 4WW Transfer Ability Level of Assist Minimal Assistance,1 Person Assistance,Use of Upper Extremities Comments Mobility Comments Pt was in bed with elevated HOB at 60 degrees. BP at 111/ 54 HR 74 Sat 86% without NC. Pt initially disagree to mobilize but was okay after explaining the benefit of being OOB. Pt used B bed rails for supine to sit from elevated HOB at 40 degrees. He has difficulty to pivot his RLE and tended to use momentum to pivot RLE from trunk rotation and SB. Pt then needed PT'S mod ROASTERMAN to scoot EOB. He was able to complete sit to stand with 4WW with min A afterwards. Pt stood at bedside to void in urinal and was able to stand unsupported intermittently for 10-15 secs. Pt's O2 sat at 86 and placed 2L NC to stand for min to reach 94%. Pt then amb to his room door and O2 remained at 94%. He then amb to hallway without NC with CGA 4WW and was able to maintain at 86-88% for first 20 ft but slowly desat to 82%. Pt amb slowly in general and required a rest break at 40 ft mariah. He did not use brakes to stabilize 4WW to sit and same for sit to stand. (took a 1 min break) Pt then amb back to his bedsdie chair with O2 at 86%. Placed NC 2L O2 again and returned to >94%. BP at 119/63 . Pt denies any discomfort but slightly fatigued. Pt did appear SOB and primarily used accessory breathing for mobility. Call light within reach and notify ROOF PROMENADE TILE SETTER for chair alarm. Gait Assessment Gait Gait Assistance Required: Contact Guard Assist Distance (Feet) 60 Able to Maintain Weight Bearing Status Yes During Gait Assistive Devices Assistive Device Gait Belt,4 Wheeled Walker Orthotic/Prosthetic Devices or Brace: No Gait Deviations General Gait Pattern Decreased Stride Length, Decreased Feet Clearance, Flexed Trunk Factors Limiting Gait Function Factors Limiting Gait Function Decreased Activity Tolerance, Decreased Strength,Pain,Poor Balance,Poor Safety Awareness, Respiratory Distress Comments Gait Comments see mobiltiy comment Stair Climbing Assessment Comments Stair Climbing Comments unable to assess d/t weakness PT-Balance Assessment Sitting Balance and Reactions Static Sitting Balance Ability Normal Dynamic Sitting Balance Ability Normal Standing Balance and Reactions Static Standing Balance Ability Good Dynamic Standing Balance Ability Good Device Used 4WW M5 PT-IP Objective Assessments Start: 11/24/19 08:19 Freq: NEEDED Status: Active Protocol: Document 11/24/19 09:30 HH (Rec: 11/24/19 11:08 [email or web address]) Orientation Orientation/Cognition Level of Alertness Alert Orientation Name,Age,Birthday,Month,Date, Year Language Function Ability Hard of Hearing Safety Awareness Understands Safety Issues, Decreased Safety Awareness Memory Description Short Term Impaired Comments Pt needed occasional reminders of current tasks. Gross Range of Motion Upper Extremity ROM Assessment Within Functional Limits Lower Extremity ROM Assessment Within Functional Limits Strength Upper Extremity Strength Assessment Within Functional Limits Lower Extremity Strength Assessment Within Functional Limits Coordination Assessment Gross Coordination Gross Coordination WNL Sensation Assessment Sensation Gross Sensation WNL Comments Sensation Comments B hands and fingers cold to touch and appears purpleish Muscle Tone Muscle Tone WNL Yes M6 PT-IP Treatment Start: 11/24/19 08:19 Freq: NEEDED Status: Active Protocol: Document 11/24/19 09:30 HH (Rec: 11/24/19 11:08 [email or web address]) Physical Therapy Treatment Education Education Provided Safety Other Treatments Other Treatment Performed education provided to pt on placing his 4WW against wall/ door for stability during transfers M7 PT-IP Assessment and Plan Start: 11/24/19 08:19 Freq: NEEDED Status: Active Protocol: Document 11/24/19 09:30 HH (Rec: 11/24/19 11:08 [email or web address]) PT Summary Assessment and Plan Potential Rehabilitation Potential Good Status of Condition at Evaluation Evolving Summary Impairments ROM,Strength,Balance,Cognition ,Bed Mobility,Transfers,Gait, Activity Tolerance Assessment Summary Pt is a low complexity 84yo male admitted to d/t acute CHF and generalized weakness. Upon assessment, pt appears AxOx3 but does not recall why he is in the hospital. His BP was stable during mobiltiy 110s/60s but O2 flutuates significantly during session. Pt tends to desat to low 80s with noticeable increased SOB and accessory breathing, 2L O2 NC was used before and after mobility and he was able to maintain >94%. Pt is also somewhat impulsive and has poor safety awareness during transfers with his 4WW (tends to not lock his brake). Education provided to pt on placing his 4WW against wall/ door for stability during transfers. Recommended nursing 2pa and chair alarm at this point. Will like to conduct CG training with dtr/son in law for 4WW management education. Expect pt to be d/c home with family's assistance and outpatient cardiac rehab to improve his activity tolerance and cardio endurance once he is medically stbale. Goals Bed Mobility Goal Standby Assistance Transfer Goal Standby Assistance,Four Wheeled Walker Gait Goal Standby Assistance,Four Wheel Walker Gait Distance 150 Other Goals 5STE with 1 rail (platfrom step) CG training on 4WW management, safety awareness Days to Meet Goals 5 Frequency of Treatment Frequency Of Treatment Once a Day Treatment Plan Physical Therapy Treatment Plan Bed Mobility Training,Transfer Training,Gait Training, Therapeutic Exercise,Balance Retraining,Neuromuscular Re-ed Discharge Recommendations PT Discharge Recommendations Home with Assistance, Outpatient PT
--- NOTE | 2019-11-24 12:55 | OT.IP.EVAL ---
Current Diagnoses Acute systolic (congestive) heart failure (11/23/19) Past Medical History (Last Updated 11/23/19 @ 17:47 by Austin Anguiano RN) Age related osteoporosis (Acute) Alzheimer's dementia (Acute) Arthritis of right hip (Acute) Cataract (Acute) Congestive heart failure (CHF) (Acute) COPD (chronic obstructive pulmonary disease) (Acute) Diabetes type 2, controlled (Acute) Hard of hearing (Acute) Hyperlipemia (Acute) Hypertension (Acute) Umbilical hernia (Acute) Occupational Therapy Inpatient Evaluation/Re-Eval M1 PT/OT-IP Prior Functional Status Start: 11/24/19 15:41 Freq: NEEDED Status: Active Protocol: Document 11/24/19 12:55 [facility] (Rec: 11/24/19 16:02 [facility] [id number]) Medical Review Prior Functional Status Medical History Reviewed Yes Communication Per EMR, pt is somewhat demented. Will check with dtr if shes available. Pt is able to make needs known. MATCH-E-BE-NASH-SHE-WISH BAND at baseline. Mobility and Gait Pt states he uses 4WW at all times and mostly home bound. He also said he hasnt had any falls. He is aware of his ongoing SOB and low activity tolerance. Activities of Daily Living and IADL's Pt is independent for ADLs with 4WW. Needed dtr's assistance for IADLs such as grocery shop, laundry, finances, medications and cooking. Prior Functional Level (Other details) Pt has a adjustable bed with bed rails since he has difficulty breathing in supine . Social History Household Members family Living Arrangements House Number of Floors (Floors) One Floor Number of Stairs To Enter/Railing? 5STE with B wide rails. (use one rail at a time) Able to place walker on each step. Pt's daughter states has 3 steps and left hand rail going up. Home Environment Standard Height Toilet,Walk in Shower Home Equipment Four Wheel Walker,Bedside Commode,Hand Held Shower,Grab Bars Near Toilet Employment Status Retired Additional Social History Comment Per Pt eval-Pt lives with dtr and her son in law in [facility]. He states his family never left him alone in the house with dtr/ son in law/ mother in law to assist as needed. Per EMR, For the past week and a half the daughter has noticed that he has been having worsening shortness of breath, weight gain, worsening lower extremity edema, and profound fatigue. The patient has recently moved here and has not established care. Family is not fully aware of all of his medical issues. Records were sent from the [employer] which helped to clarify his past medical history. The family does note that he was on hospice, but turned around when care providers changed and he has been doing fairly well recently. He does have some dementia, which they relate as Alzheimer, but the true cause is unknown. Pt's daughter clarifies that he lives in a house next to them and lives alone, however pt's daughter able to stay with him initially when he goes home and that someone can be with him 14/06. M2 OT-IP Current Condition Start: 11/24/19 15:41 Freq: Status: Active Protocol: Document 11/24/19 12:55 [facility] (Rec: 11/24/19 16:02 [facility] [id number]) Occupational Therapy Current Condition Current Condition Evaluation Date 11/24/19 Treatment Diagnosis Acute CHF, decreased activity tolerance. Diagnosis Onset Date 11/23/19 Weight Bearing Status Weight Bearing Status Weight Bear as Tolerated M3 OT- IP Subjective and Pain Start: 11/24/19 15:41 Freq: Status: Active Protocol: Document 11/24/19 12:55 [facility] (Rec: 11/24/19 16:02 [facility] [id number]) OT- Subjective Occupational Therapy Visit Type Type Initial Evaluation Visit Start Time 12:55 Visit Stop Time 13:23 Total Visit Minutes 28 Occupational Therapy Visit Comments Patient Comments Pt's daughter in the room to help answer prior history questions and present for OT eval. Patient/Caregiver Goals Pt wanting to go home. OT Pain Assessment Pain When Pain Assessed At Rest Pain Present Pain Present Denied Pain M4 OT- IP ADL's Start: 11/24/19 15:41 Freq: Status: Active Protocol: Document 11/24/19 12:55 [facility] (Rec: 11/24/19 16:02 [facility] [id number]) OT JPS-Umog-Tckgrug Comments OT Self-Feeding Comments NOt at meal time. OT ADL-Grooming General Evaluation Grooming Ability Standby Assistance Areas Needing Assistance Retrieving/Set-up of Grooming Items Comments OT Grooming Comments Pt able to stand with 4WW to the side and use of hands on the counter for support so able to do grooming needs. OT ADL-Oral Care General Eval Oral Care Ability Independent Comments Oral Care Comments Dentures OT ADL-Dressing General Eval Lower Body Dressing Ability Contact Guard Assistance Areas Needing Assistance Underpants/Brief Comments OT Dressing Comments Pt needing CGA for balance while pulling up and down brief while use of urinal while standing. OT ADL-Toileting General Evaluation Toileting Ability Contact Guard Assistance Devices Toileting Assistive Devices Urinal OT ADL-Bathing Comments OT Bathing Comments Not performed to try tomorrow. M5 OT- IP IADL's Start: 11/24/19 15:41 Freq: Status: Active Protocol: Document 11/24/19 12:55 [facility] (Rec: 11/24/19 16:02 [facility] [id number]) OT-Instrumental Activities of Daily Living Home Safety Awareness Awareness of Need for Assistance at Home Decreased Awareness Ability to Problem Solve Emergency Unable to Problem Solve Situations Medication Management Medication Management Caregiver Administers Money Management Money Management Caregiver Provides Assistance Meal Preparation Meal Preparation Comments Pt's daughter state he is able to wash dishes at home. Encyclopedia Research Worker Encyclopedia Research Worker Comments Pt's daughter states he rides the [employer] tractor to lease picker debris on the property by holding onto the tractor. M6 OT- IP Functional Cognition Start: 11/24/19 15:41 Freq: Status: Active Protocol: Document 11/24/19 12:55 [facility] (Rec: 11/24/19 16:02 [facility] [id number]) Cognitive Factors Limiting Selfcare Function Cognitive Ability Level of Alertness Alert Patient Orientation Name Attention Span Ability Capable of Focused Attention, Capable of Sustained Attention Ability to Follow Commands Able to Follow One Step Commands Memory Description Short Term Impaired Safety Awareness Underestimates Need for Assistance Problem Solving Ability Unable to Identify Errors, Needs Assist to Identify Solutions Cognitive Comments Cognitive Assessment Comments Pt's daughter having to explain home set- up for pt. Pt able to follow single step commands and able to sequence appropriately for grooming needs. Pt needing reminders to lock the brakes of his 4WW for safety. OT- Vision and Hearing OT- Hearing Assessment OT- Hearing Assessment Hearing Impaired OT- Vision Assessment Visual Acuity Glasses All The Time Vision Assessment Comments Pt able to scan the room appropriately. M7 OT- IP Mobility and Balance Start: 11/24/19 15:41 Freq: Status: Active Protocol: Document 11/24/19 12:55 [facility] (Rec: 11/24/19 16:02 [facility] [id number]) OT- Bed Mobility Assessment Rolling Type of Rolling Roll to Left Level of Assistance Standby Assistance,Bedrails Supine to Sit Supine to Sit Assist Standby Assistance,Bedrails Scooting Scooting to Edge of Bed Contact Guard Assistance,1 Person Assistance OT-Transfer Assessment Sit to and From Stand Sit to and from Stand Standby Assistance,Contact Guard Assistance Transfers Transfer Ability Contact Guard Assistance Technique Transfer Destination Bed,Chair Transfer Technique Stand Step Pivot Devices Transfer Assistive Devices Gait Belt,4 Wheeled Walker Comments Mobility Comments Pt having to use bed rail to help get out of bed, pt does not have bed rails at home. CGA to stand to 4WW and CGA for balance as a little unsteady on his feet while walking to the sink. Pt's daughter able to assist to help walk him from the sink to the recliner. O2 on 2L and from 84-91%. OT- Balance Assessment Sitting Balance and Reactions Static Sitting Balance Ability Good Dynamic Sitting Balance Ability Fair Standing Balance and Reactions Static Standing Balance Ability Fair Dynamic Standing Balance Ability Poor M8 OT- IP Objective Assessments Start: 11/24/19 15:41 Freq: Status: Active Protocol: Document 11/24/19 12:55 [facility] (Rec: 11/24/19 16:02 [facility] [id number]) OT Gross Range of Motion Upper Extremity Range of Motion Assessment Within Functional Limits OT Strength Comments Strength Comments BUE 5/5 OT- Coordination Assessment Upper Extremity Finger to Nose Test Within Functional Limits Finger Tapping Test Within Functional Limits OT-Muscle Tone Assessment Muscle Tone WNL Yes M9 OT- IP Assessment and Plan Start: 11/24/19 15:41 Freq: Status: Active Protocol: Document 11/24/19 12:55 [facility] (Rec: 11/24/19 16:02 [facility] [id number]) OT Summary Assessment and Plan Potential Rehabilitation Potential Good Analytic Complexity at Evaluation Low Summary OT Impairments Balance,Functional Cognition, Functional Mobility,Grooming, Dressing,Toileting,Bathing, Toilet Transfers,Shower Transfers Progress Towards Goals Slow Progress due to Activity Tolerance Assessment Summary Pt low complexity and main barrier in decreased activity tolerance, dynamic balance, and now having to use O2. Prior pt was MOD I with all ADl and mobility needs and would benefit from cont. OT to work on safety and increasing activity tolerance through ADl's. Pt will benefit from OT/PT/bathaid home health and to have 24/7 assist at home when discharged . Goals Grooming Goal Independent Dressing Goal Independent Toileting Goal Independent Bathing Goal Standby Assistance Toilet Transfer Goal Independent Shower Transfer Goal Standby Assistance Patient/Caregiver Education Goal Caregiver Independent Assisting Patient Days to Meet Goals 5 Frequency of Treatment Frequency Of Treatment Once a Day Treatment Plan OT Treatment Plan ADL Training,Functional Cognition Training,Functional Mobility,Patient/Family Education,Discharge Planning Other Treatment Recommendations and Next Shower, caregiver training Treatment Focus Discharge Recommendations OT Discharge Recommendations Home with 14/06 Assist,Home Health
--- NOTE | 2019-11-24 13:45 | DIET.PN ---
Dietary Progress Note Assessment: 84y male admitted for CHF c LE cellulitis and pressure ulcers on bottom. Pt usual intake includes: B: cottage cheese c prunes and oatmeal c one cup coffee L: leftovers c cookie and fruit D: meat c veg Pt's daughter who he lives with does all the cooking, he eats what she prepares. Meals seem to be low to medium in carbohydrates possibly part of the reason pt A1c is 5.9. Pt is not picky eater. HT: 170.1cm WT: 92.9kg BMI: 32.1 Labs: MNA: 11 Leonardo:17 Interventions: Reinforced moderating intake of sodium to manage CHF, recc increasing healthy fats (olive oil, nuts, seeds, avocado) r/t HDL 29 L and to ease breathing r/t COPD Diet Order: HH/Fluid restriction EER: 1900kcal, 90g PRO (1.0g/kg per elder), 2.3 L fluids Monitoring/Evaluations: POs, wounds
[2019-11-24] MEDS: INSULIN ASPART 100 UNIT/ML INSULN PEN 12 UNIT SUBCUT (16:53)
[2019-11-24] MEDS: INSULIN ASPART 100 UNIT/ML INSULN PEN SUBCUT (16:54)
[2019-11-24] MEDS: CEFTRIAXONE 1 GM/50 ML FROZ.PIGGY IV (19:02)
[2019-11-24] MEDS: SODIUM CHLORIDE 0.9% 250 ML 21 ML IV (19:04)
--- NOTE | 2019-11-24 20:03 | PC.NURSE ---
Addendum entered by Olimpia Rubin R.N. 11/24/19 22:59: HS CBG 49. Juice, crackers and sandwich given CBG upon recheck 112. Original Note: Assumed care of pt at 1500. Pt sitting up in chair during bedside hand-off. Denies pain. Dtr reports pt has been drowsy today. Napping in chair frequently. Trans to bed at approx 1630. Pt awakens for dinner but returns to sleep shortly after. Able to reposition independently in bed. Advised to do so for pressure injury prevention. Pt refuses to turn at times when staff reminds him. Bed alarm on for safety.
[2019-11-25] VITALS (12 sets, daily range): BP systolic 127–151; BP diastolic 64–94; PULSE 62–84; RESP 14–20; TEMP 36.3–36.8; O2SAT 93–97
[2019-11-25 06:01] LABS: Add Manual Diff / Slide Review NO; Basophils Absolute Auto 100 /uL (0-100); Basophils Percent Auto 0.8 % (0-2); Eosinophils Absolute Auto 300 /uL (0-450); Eosinophils Percent Auto 3.8 % (2-4); Hemoglobin 12.6 g/dL (13.5-17.5); Lymphocytes Absolute Auto 1200 /uL (1100-4500); Lymphocytes Percent Auto 13.7 % (25-40); Mean Corpuscular HGB Conc 32.4 % (30-36); Mean Corpuscular Hemoglobin 29.8 PG (26-34); Mean Corpuscular Volume 92.1 fL (80-100); Monocytes Absolute Auto 800 /uL (0-900); Monocytes Percent Auto 9.3 % (3-14); Neutrophils Absolute Auto 6200 /uL (1500-7000); Neutrophils Percent Auto 72.4 % (50-75); Platelet Count 223 X10^3/uL (150-400); Red Blood Cell Count 4.23 X10^6/uL (4.5-5.9); Red Cell Distribution Width 16.9 % (11.6-14.8); White Blood Cell Count 8.5 X10^3/uL (4.5-11.0)
[2019-11-25 06:05] LABS: BUN Creatinine Ratio 40.7 (6-22); Blood Urea Nitrogen 61 mg/dL (9-20); Calcium 8.5 mg/dL (8.4-10.2); Carbon Dioxide 35 mmol/L (22-32); Chloride 104 mmol/L (98-107); Creatine Kinase 26 U/L (55-170); Estimated Glomerular Filt Rate 44.7 mL/min (>60); Glucose 102 mg/dL (80-110); HEMOLYSIS < 15 (0-50); Magnesium 2.1 mg/dL (1.6-2.3); Potassium 4.1 mmol/L (3.4-5.1); Sodium 144 mmol/L (137-145)
[2019-11-25 06:17] LABS: Troponin I 0.024 ng/mL (0.01-0.034)
[2019-11-25] MEDS: carvediloL 12.5 MG TABLET PO ×2 (07:48→20:16)
[2019-11-25] MEDS: HEPARIN 5,000 UNIT/ML VIAL 5000 UNIT SUBCUT ×2 (07:48→20:16)
[2019-11-25] MEDS: DOCUSATE 100 MG CAPSULE PO ×2 (07:48→20:16)
[2019-11-25] MEDS: VENLAFAXINE ER 37.5 MG CAP PO (07:48)
[2019-11-25] MEDS: SODIUM CHLORIDE 0.9% FLUSH 10 ML IV ×2 (07:48→20:28)
[2019-11-25] MEDS: INSULIN GLARGINE 100 UNIT/ML 3ML PEN 28 UNIT SUBCUT (07:49)
[2019-11-25] MEDS: TELMISARTAN 40 MG TABLET PO (07:49)
[2019-11-25] MEDS: FUROSEMIDE 100 MG/10 ML VIAL 60 MG IV (08:02)
[2019-11-25] MEDS: TIOTROPIUM BROMIDE 18 MCG INHALER INH (09:35)
--- NOTE | 2019-11-25 10:49 | PC.NURSE ---
AM NOTE - pt is awake, watching tv, no complaint discomfort, 2l [id number]%. bs dim, later ra trial sat decr to 80% and nasal cannula replaced, pt has some redness, old scarring r hip, mult superficial scratches over torso, thigh, le, dark pink medial lle, small callous and small scab r foot, 2+ pedal edema, discussed creat 1.50 with , no change in orders at this time, standby assist to chair this am and later ret bed.
--- NOTE | 2019-11-25 11:22 | CM.DPC ---
DCP Cont: Went ahead and had Dr. Dillon sign face to face for home health. He will not be leaving today, secondary to a medication that they will be initiating, and to see how he does. He could potentially go home tomorrow. P: DCP to continue to follow. Patient is to go home with home health services through [facility]. Face to face is signed already. Apurva Baumann RN/Pile Driver Operator Barge [employer]ed
--- NOTE | 2019-11-25 11:32 | P.PN_ITS ---
Subjective Subjective Date Patient Seen: 11/25/19 Time Patient Seen: 09:00 Interval history: Mr. Tj Bull is an 84-year-old male with past medical history of dementia, remote bullous pemphigoid, COPD, diabetes, hypertension, hyperlipidemia, and possible CHF who presented to the emergency room with shortness of breath, right lower extremity pain, and lower extremity edema. He is seen today for follow-up of congestive heart failure and right lower extremity cellulitis. Patient states that he feels fine, and denies shortness of breath. He denies right lower extremity pain today. He denies any fevers, chills, nausea, vomiting. He is tolerating a diet and voiding without difficulty. He is still requiring some supplemental Oxygen. Exam Vital Signs (past 8 hours): - 11/25/19 04:25 11/25/19 05:04 11/25/19 05:47 Temperature 98.3 F Pulse Rate 84 Respiratory Rate 14 Blood Pressure 151/94 H 132/68 Pulse Oximetry 94 95 11/25/19 08:00 11/25/19 09:00 Temperature 97.4 F L Pulse Rate 76 Respiratory Rate 20 Blood Pressure 134/72 Pulse Oximetry 94 93 Oxygen Delivery Method Nasal Cannula Oxygen Flow Rate 2 Narrative Exam Narrative: GENERAL APPEARANCE: Elderly male, slumped in hospital bed, in no acute distress. He does get winded with prolonged speaking but is slightly improved today. SKIN: Inspection of the skin reveals some small bruising in his upper extremities bilaterally. There are no bullous appearing lesions. His right lower extremity is erythematous and warm on the anterior aspect. Area of erythema is improved and has shrunken today to involve 1/4 of his calf circumference. There are also some lacerations on the anterior part of his right lower extremity which appear to be scratch clements. He is mildly tender and warm on his RLE over the area of erythema. This appears improved from previous exam. HEENT: The sclerae were anicteric and conjunctivae were pink and moist. Extraocular movements were intact and pupils were equal, round with normal accommodation. External inspection of the ears and nose showed no scars, lesions, or masses. Lips, teeth, and gums showed normal mucosa. The oral mucosa, hard and soft palate, tongue and posterior pharynx were unremarkable. NECK: Supple and symmetric. There was no thyroid enlargement, and no tenderness, or masses were felt. + JVD CHEST: Normal AP diameter and normal contour without any kyphoscoliosis. LUNGS: Diminished breath sounds at the left lung base, bibasilar crackles slightly more prominent on the right. No wheezing. CARDIOVASCULAR: There was a regular rate and rhythm without any murmurs, gallops, rubs. Peripheral pulses were 2+ and symmetric. ABDOMEN: Soft and nontender with normal bowel sounds. No ascites was noted. MUSCULOSKELETAL: There was no tenderness or effusions noted. Muscle strength and tone were normal. EXTREMITIES: No cyanosis, clubbing. There is 1 to 2+ pitting edema bilaterally in the lower extremities. With erythema and warmth as noted above. NEUROLOGIC: Alert and oriented x 3. Normal affect. Some cognitive impairment is evident. Strength is +5/5 in the Upper Extremities and Lower Extremities Bilaterally. Sensation to touch was normal. Objective Labs Result Diagrams: 11/25/19 05:30 11/25/19 05:30 Labs: Laboratory Results - last 24 hr 11/25/19 11/25/19 11/25/19 05:30 05:30 05:30 WBC 8.5 RBC 4.23 L Hgb 12.6 L Hct 39.0 L MCV 92.1 MCH 29.8 MCHC 32.4 RDW 16.9 H Plt Count 223 Neut % (Auto) 72.4 Lymph % (Auto) 13.7 L [place] % (Auto) 9.3 Eos % (Auto) 3.8 Baso % (Auto) 0.8 Neut # (Auto) 6200 Lymph # (Auto) 1200 [place] # (Auto) 800 Eos # (Auto) 300 Baso # (Auto) 100 Sodium 144 Potassium 4.1 Chloride 104 Carbon Dioxide 35 H BUN 61 H Creatinine 1.50 H Estimated GFR 44.7 L BUN/Creatinine Ratio 40.7 H Glucose 102 Calcium 8.5 Magnesium 2.1 Total Creatine Kinase 26 L CK-MB (CK-2) TNP CK-MB (CK-2) Rel Index TNP Troponin I 0.024 Assessment & Plan Assessment & Plan narrative: Mr. Tj Bull is an 84-year-old male with past medical history of dementia, remote bullous pemphigoid, COPD, diabetes, hypertension, and possible CHF who presented to the emergency room with shortness of breath, right leg pain, and lower extremity edema. He is admitted with decompensated heart failure and RLE cellulitis. 1. Acute decompensated heart failure with reduced ejection fraction, present on admission - Echocardiogram showing an EF of 30-35%. There are focal wall motion abnormalities in the distribution of the left circumflex artery as well as areas of akinesis. There was a previous echocardiogram from 2009 with a similar ejection fraction, but the wall motion abnormalities are new. He has no symptoms of chest pain, and his troponin was rechecked and is still within the normal range. -will increase lasix to 80 mg BID tonight as patient net negative 500 mL yest erday. -strict Is and Os, daily weights, 1.5 L fluid restriction -TTE as noted above. -can continue home coreg 12.5 mg BID (home dosing) and telmisartan 40 mg daily -risk stratification: TSH 4.68, Total Cholesterol 90, LDL 48. A1c of 5.9% -PT/OT evaluation appreciated -dietary consult -will need outpatient cardiology follow up for further evaluation of wall motion abnormalities. 2. Acute hypoxemic respiratory failure, present on admission -patient desaturates to 83% on room air per ED report. He is saturating well on 2 L. this is likely secondary to decompensated heart failure above. -continue diuresis and management of heart failure as noted in problem 1. 3. Right lower extremity cellulitis, acute, present on admission -patient with warmth and erythema of his right leg. There is no evidence of purulence. He does have scratch clements and venous stasis changes bilaterally. US for DVT performed at [facility] was negative. His cellulitis appears to be improving with antibiotic therapy. -continue ceftriaxone 1 g Q 24 hours x 7 days (day 2/7), can transition to oral antibiotics upon discharge. 4. Paroxysmal atrial fibrillation, new diagnosis -on telemetry patient has had episodes of AFib with RVR. Will need to discuss with family starting anticoagulation. -pending discussion with family regarding initiation of anticoagulation, his chads Vasc score is 5. 5. Diabetes, chronic, present on admission, good control - -continue home regimen 28 units of Lantus in a.m., he takes lispro 12 units at dinner time only. -add on sliding scale coverage -A1c of 5.9%, will continue to monitor glucose, this A1c is quite low for an 84 year old male on insulin, will need to be wary of hypoglycemia. 6. COPD, chronic, stable -no wheezing on exam and acute respiratory failure likely secondary to volume overload. -respiratory eval and treat -continue home Spiriva, and as needed albuterol 7. Hypertension, chronic, stable -continue home medications as noted above in problem 1 8. Elevated creatinine, unknown chronicity -creatinine of 1.4 on admission. Slightly improved to 1.2 with diuresis then increased to 1.5 today. Unknown baseline. He has multiple other chronic medical conditions and likely CKD. However there is no previous lab work available to compare. -continue to monitor renal function -avoid nephrotoxic medications -treat underlying decompensated heart failure as noted above in problem 1 Code: full, patient's surrogate decision maker is his daughter / DPOA. Dispo: Admitted as inpatient. Anticipate discharge in the next 1-2 days. Discharge likely to be home with home health. DVT: Heparin subcu
[2019-11-25] MEDS: INSULIN ASPART 100 UNIT/ML INSULN PEN SUBCUT (12:26)
[2019-11-25] MEDS: MAGNESIUM HYDROXIDE 30 ML UDC PO (12:26)
--- NOTE | 2019-11-25 14:43 | OT.IP.TRT ---
Current Diagnoses Acute systolic (congestive) heart failure (11/23/19) Occupational Therapy Treatment Note M2 OT-IP Current Condition Start: 11/24/19 15:41 Freq: Status: Active Protocol: Document 11/24/19 12:55 [facility] (Rec: 11/24/19 16:02 [facility] [id number]) Occupational Therapy Current Condition Current Condition Evaluation Date 11/24/19 Treatment Diagnosis Acute CHF, decreased activity tolerance. Diagnosis Onset Date 11/23/19 Weight Bearing Status Weight Bearing Status Weight Bear as Tolerated M3 OT- IP Subjective and Pain Start: 11/24/19 15:41 Freq: Status: Active Protocol: Document 11/25/19 14:42 [facility] (Rec: 11/25/19 14:43 [facility] [id number]) OT- Subjective Occupational Therapy Visit Type Type Patient Unavailable Notes Pt just assisted back to the bed after being up in the chair for most of the day per nursing. Pt states does not want to OT treatment at this time due to wanting to sleep.
--- NOTE | 2019-11-25 16:37 | PT.IPTN ---
Current Diagnoses Acute systolic (congestive) heart failure (11/23/19) Physical Therapy Treatment Note M2 PT-IP Current Condition Start: 11/24/19 08:19 Freq: NEEDED Status: Active Protocol: Document 11/25/19 16:17 NFW (Rec: 11/25/19 16:37 [facility] [id number]) Physical Therapy Current Condition Weight Bearing Status Weight Bearing Status Full Weight Bearing M3 PT-IP Subjective Start: 11/24/19 08:19 Freq: NEEDED Status: Active Protocol: Document 11/25/19 16:17 NFW (Rec: 11/25/19 16:37 [facility] [id number]) Subjective Physical Therapy Visit Type Type Treatment Note Visit Start Time 15:45 Visit Stop Time 16:17 Number of PRINTED CIRCUIT BOARDS BEVELER Visits 0 Physical Therapy Visit Comments Patient Comments Pt asleep in bed upon arrival. Really doesn't want to move but agreed to follow through with treatment. M4 PT-IP Mobility and Gait Start: 11/24/19 08:19 Freq: NEEDED Status: Active Protocol: Document 11/25/19 16:17 NFW (Rec: 11/25/19 16:37 [facility] [id number]) PT-Bed Mobility Assessment Supine to Sit Supine to Sit Minimal Assistance,1 Person Assistance,Bedrails Sit to Supine Sit to Supine Minimal Assistance,1 Person Assistance,Bedrails Scooting Scooting to Edge of Bed Standby Assistance Scooting Up and Down in Bed Standby Assistance PT-Transfer Assessment Sit to and From Stand Sit to and from Stand Minimal Assistance,1 Person Assistance,Use of Upper Extremities Equipment Transfer Assistive Device Gait Belt,4 Wheeled Walker Orthotic/Prosthetic Devices or Brace: No Transfers Transfer Destination Bed,Toilet Transfer Technique amb with 4WW Transfer Ability Level of Assist Minimal Assistance,1 Person Assistance,Use of Upper Extremities Comments Mobility Comments Pt a sleep with HOB elevated at 60 degrees. O2 Sat 99% with NC. At end of treatment O2 Sat 90% w/o NC. Pt SOB post treatment. In transfers patient relies on bedrails despite attempts to have pt use bed. He also uses momentum to go between supine to sitting. Likes assist to raise LEs onto bed but is able to do on own with encouragement. Gait Assessment Gait Gait Assistance Required: Contact Guard Assist Distance (Feet) 170 Able to Maintain Weight Bearing Status Yes During Gait Assistive Devices Assistive Device Gait Belt,4 Wheeled Walker Orthotic/Prosthetic Devices or Brace: No Gait Deviations General Gait Pattern Decreased Stride Length, Decreased Feet Clearance, Flexed Trunk Factors Limiting Gait Function Factors Limiting Gait Function Decreased Activity Tolerance, Decreased Strength,Pain,Poor Balance,Poor Safety Awareness, Respiratory Distress Comments Gait Comments Cuing for pacing. Pt impulsive with moving around room. Tolerated walking around nursing station and more, SOB noted afterwards with decrease O2 sat. Noted above. Stair Climbing Assessment Evaluation Level of Assist On Stairs Contact Guard Assistance,1 Person Assistance Devices Stair Climbing Assistive Devices Right Railing Technique/Endurance Stair Climbing Direction Ascend and Descend Stair Climbing Technique Step to Step Number of Steps Climbed 3 Stair Climbing Set # Repetitions (reps) 2 Comments Stair Climbing Comments Uses UE to pull wt to next step with ascension. Starts with step over step for one step then step to step to complete. With descension step to step and again relies on UE. M5 PT-IP Objective Assessments Start: 11/24/19 08:19 Freq: NEEDED Status: Active Protocol: Document 11/25/19 16:17 NFW (Rec: 11/25/19 16:37 [facility] [id number]) Orientation Orientation/Cognition Safety Awareness Decreased Safety Awareness Comments Pt needed occasional reminders of current tasks. Sensation Assessment Comments Sensation Comments B hands and fingers cold to touch and appears purpleish M6 PT-IP Treatment Start: 11/24/19 08:19 Freq: NEEDED Status: Active Protocol: Document 11/24/19 09:30 HH (Rec: 11/24/19 11:08 HH [id number]) Physical Therapy Treatment Education Education Provided Safety Other Treatments Other Treatment Performed education provided to pt on placing his 4WW against wall/ door for stability during transfers M7 PT-IP Assessment and Plan Start: 11/24/19 08:19 Freq: NEEDED Status: Active Protocol: Document 11/25/19 16:17 NFW (Rec: 11/25/19 16:37 [facility] [id number]) PT Summary Assessment and Plan Potential Rehabilitation Potential Good Status of Condition at Evaluation Evolving Summary Impairments ROM,Strength,Balance,Cognition ,Bed Mobility,Transfers,Gait, Activity Tolerance Progress Towards Goals Progressing Toward Goals Assessment Summary Pt improved walking distance with CGA and cuing for pacing. O2 sat decreased to 90 from 99 prior to walk with SOB. Able to ascend and descend stairs safely using single handrail. Pt left in bed with HOB elevated 60 degrees. Bed alarm on, call light in lap. Nursing informed when treatment completed. Frequency of Treatment Frequency Of Treatment Once a Day Treatment Plan Physical Therapy Treatment Plan Bed Mobility Training,Transfer Training,Gait Training, Therapeutic Exercise,Balance Retraining,Neuromuscular Re-ed Other Recommendations and Next Treatment Review stairs using single Focus handrail. Recommendations To Nursing Amount of Assist Needed 1 Person Assist
[2019-11-25] MEDS: INSULIN ASPART 100 UNIT/ML INSULN PEN 12 UNIT SUBCUT (16:51)
[2019-11-25] MEDS: CEFTRIAXONE 1 GM/50 ML FROZ.PIGGY IV (18:46)
[2019-11-25] MEDS: FUROSEMIDE 100 MG/10 ML VIAL 80 MG IV (20:15)
[2019-11-26] VITALS: BP 139/66; PULSE 95; RESP 16; TEMP 36.1; O2SAT 93
[2019-11-26 01:13] LABS: Blood Urea Nitrogen 63 mg/dL (9-20); Calcium 8.8 mg/dL (8.4-10.2); Carbon Dioxide 39 mmol/L (22-32); Chloride 100 mmol/L (98-107); Estimated Glomerular Filt Rate 48.4 mL/min (>60); Glucose 73 mg/dL (80-110); HEMOLYSIS < 15 (0-50); Magnesium 2.4 mg/dL (1.6-2.3); Potassium 4.8 mmol/L (3.4-5.1); Sodium 143 mmol/L (137-145)
--- NOTE | 2019-11-26 02:21 | PC.NURSE ---
ICU nurse called to notify that the patient's heart rhythm changed from sinus rhythm to atrial fibrillation with a rate ranging between 72-85 bpm. MART Ceja notified of the rhythm change.
[2019-11-26 04:00] VITALS: O2SAT 93
[2019-11-26 06:00] VITALS: BP 142/76; PULSE 76; RESP 20; TEMP 36.4; O2SAT 92
[2019-11-26 08:00] VITALS: BP 138/80; PULSE 67; RESP 17; TEMP 35.8; O2SAT 99
[2019-11-26] MEDS: RIVAROXABAN 10 MG TABLET 15 MG PO (08:11)
[2019-11-26] MEDS: DOCUSATE 100 MG CAPSULE PO (08:14)
[2019-11-26] MEDS: carvediloL 12.5 MG TABLET PO (08:14)
[2019-11-26] MEDS: FUROSEMIDE 100 MG/10 ML VIAL 80 MG IV (08:14)
[2019-11-26] MEDS: SODIUM CHLORIDE 0.9% FLUSH 10 ML IV (08:16)
[2019-11-26] MEDS: TELMISARTAN 40 MG TABLET PO (08:16)
[2019-11-26] MEDS: VENLAFAXINE ER 37.5 MG CAP PO (08:17)
[2019-11-26] MEDS: INSULIN GLARGINE 100 UNIT/ML 3ML PEN 28 UNIT SUBCUT (08:18)
[2019-11-26] MEDS: TIOTROPIUM BROMIDE 18 MCG INHALER INH (09:06)
[2019-11-26 09:48] VITALS: O2SAT 88
--- NOTE | 2019-11-26 09:55 | PC.NURSE ---
Addendum entered by Irena Mckinney R.N. 11/26/19 11:32: DC - reviewed dc instructions with pt and dtr, sl dc'd, tele dc'd, belongings gathered, including dentures, own fww, wearing a gold colored metal watch, scripts were sent electronically to [facility] [place], tsf to and escorted to dtrs car. Addendum entered by Irena Mckinney R.N. 11/26/19 10:13: RESP - discussed pt 02 sat decr to mid 80's when dozing, when awake 89-90% currently, no change in orders, MD will suggest sleep study for possible apnea. Original Note: AM NOTE - pt is awake at bedside shift report, assist x 1 person up to void and then to chair, 2l 96%, Dr. Dillon in this am and 02 removed, sat while awake 95%, did drop to 89% 90% this am while dozing, viewed the dark pink discoloration rle this am, his l is pink, not as intense at yesterday, pt has numerous superficial scratches over ue, abd and le, states I try not to scratch.
--- NOTE | 2019-11-26 10:21 | PM.DS.1 ---
History of Present Illness History of Present Illness Date Patient Seen: 11/26/19 Time Patient Seen: 10:22 Chief complaint: CONGESTIVE HEART FAILURE Narrative: Mr. Tj Bull is an 84-year-old male with past medical history of dementia, remote bullous pemphigoid, COPD, diabetes, hypertension, hyperlipidemia, and possible CHF who presented to the emergency room with shortness of breath, right lower extremity pain, and lower extremity edema. History is obtained from the patient as well as his daughter who helps to take care of him. For the past week and a half the daughter has noticed that he has been having worsening shortness of breath, weight gain, worsening lower extremity edema, and profound fatigue. The patient endorses all the above but states that it is only been present for the past 3 days. She states his shortness of breath initially started just with dyspnea on exertion, however now even at rest he appears short of breath and this has been going on for the past 3 days. Both also note some pain in his right lower extremity, with worsening swelling and some redness over the past 3 days. Family has also noted a weight gain of approximately 10 lb based on today's weight. The weight gain is likely over the past week and a half, but the family is unsure as they do not weigh him regularly. He denies any chest pain, fevers, chills, nausea, vomiting. He has no abdominal pain, difficulty voiding, diarrhea, or constipation however he does need to take prunes to stay regular. He initially went to the [facility] for an evaluation, they did a chest x-ray and a right lower extremity ultrasound. The chest x-ray showed vascular congestion and an enlarged heart size. The right lower extremity ultrasound was negative for DVT. They were told to come to the emergency room in [place] for further management. The patient has recently moved here and has not established care. Family is not fully aware of all of his medical issues. Records were sent from the [facility] which helped to clarify his past medical history. The family does note that he was on hospice, but turned around when care providers changed and he has been doing fairly well recently. He does have some dementia, which they relate as Alzheimer, but the true cause is unknown. 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 He quit smoking 20 years ago, he rarely drinks alcohol, he denies illicit substance use, but daughter notes that he does ingest marijuana edibles. In the emergency room, per the ED provider when taken off of nasal cannula he desaturated to 83%. He is saturating well on 2 L nasal cannula. Otherwise his vital signs were unremarkable. He was given 60 mg of IV Lasix. Laboratory studies revealed a WBC of 7.5, hemoglobin 12.7, platelet 234. Chemistries notable for BUN of 60, creatinine 1.4 (unknown baseline), glucose 170, normal lactate, troponin 0.027, BNP 1850. Chest x-ray shows interstitial prominence consistent with volume overload, cardiomegaly, and small bilateral pleural effusions. EKG showing a right bundle branch block, which is of unknown duration per naval physician's notes. There does not appear to be evidence of active ischemia, and there are no significant changes over the course of today. He is admitted to Medicine for further evaluation of his decompensated heart failure. Discharge Providers Provider Date of admission: 11/23/19 15:49 Discharge Date: 11/26/19 Consults: 11/23/19 18:04 Consult to Dietitian, Adult Routine Comment: Reason For Exam: CHF Consult to Discharge Planning Routine Comment: Consult to Occupational Therapy Evaluate & Treat Comment: Physician Instructions: Evaluate and treat Consult to Physical Therapy Evaluate & Treat Comment: Physician Instructions: Evaluate and Treat 11/23/19 18:52 Consult to Respiratory Therapy Evaluate & Treat Comment: Physician Instructions: Evaluate and treat 11/25/19 13:46 Consult to Home Health Routine Comment: Reason For Exam: Home health nursing, P.T, O.T, Bath Aide Discharge provider: Jonathan Dillon DO Summary Hospital Course Discharge Diagnosis: 1. Acute decompensated heart failure with reduced ejection fraction, present on admission - 2. Acute hypoxemic respiratory failure, present on admission - 3. Right lower extremity cellulitis, acute, present on admission - 4. Paroxysmal atrial fibrillation, new diagnosis - 5. Diabetes, chronic, present on admission, good control - 6. COPD, chronic, stable - 7. Hypertension, chronic, stable - 8. Elevated creatinine, unknown chronicity - Hospital Course: Mr. Tj Bull is an 84-year-old male with past medical history of dementia, remote bullous pemphigoid, COPD, diabetes, hypertension, and possible CHF who presented to the emergency room with shortness of breath, right leg pain, and lower extremity edema. He was admitted with decompensated heart failure and RLE cellulitis and improved with antibiotics and diuresis. He was also found to have afib and NSVT on telemtery and was started on xarelto dosed for his renal function. 1. Acute decompensated heart failure with reduced ejection fraction, present on admission - Echocardiogram showing an EF of 30-35%. There are focal wall motion abnormalities in the distribution of the left circumflex artery as well as areas of akinesis. There was a previous echocardiogram from 2009 with a similar ejection fraction, but the wall motion abnormalities are new. He has no symptoms of chest pain, and his troponin was rechecked and is still within the normal range. He improved with diuresis and was discharged home on oral lasix to take twice daily. This may need to be adjusted by his primary care provider upon follow up, whom he should see in the upcoming week. -discharged on lasix 40 mg BID - 1.5 L fluid restriction and weight patient daily. -TTE as noted above. -can continue home coreg 12.5 mg BID (home dosing) and telmisartan 40 mg daily. Recommend increasing coreg as tolerated for afib and NSVT which occurred on telemetry as an outpatient. -risk stratification: TSH 4.68, Total Cholesterol 90, LDL 48. A1c of 5.9% -PT/OT evaluation appreciated -will need outpatient cardiology follow up for further evaluation of wall motion abnormalities, afib, NSVT, and CHF. 2. Acute hypoxemic respiratory failure, present on admission,resolved -patient desaturated to 83% on room air per ED report. He improved with diuresis but occasionally desaturates especially when sleeping. He should obtain an outpatient sleep study to assess fully for EMIL. 3. Right lower extremity cellulitis, acute, present on admission,improved -patient with warmth and erythema of his right leg. There is no evidence of purulence. He does have scratch clements and venous stasis changes bilaterally. US for DVT performed at [facility] was negative. His cellulitis appears to be improving with antibiotic therapy. He will be discharged on doxycycline x 5 additional days. 4. Paroxysmal atrial fibrillation, new diagnosis -on telemetry patient has had episodes of AFib with RVR. Discussed with family and has been started on Xarelto. -chads Vasc score is 5. Patient was started on Xarelto 15 mg in the morning with meals. To follow up with PCP and recommend cardiology as noted above. 5. Diabetes, chronic, present on admission, good control - -continue home regimen 28 units of Lantus in a.m., he takes lispro 12 units at dinner time only. -A1c of 5.9%, will continue to monitor glucose, this A1c is quite low for an 84 year old male on insulin, will need to be wary of hypoglycemia at home. 6. COPD, chronic, stable -no wheezing on exam and acute respiratory failure likely secondary to volume overload. -continue home Spiriva, and as needed albuterol 7. Hypertension, chronic, stable -continue home medications as noted above in problem 1, lasix was changed as noted above. 8. Elevated creatinine, unknown chronicity -creatinine of 1.4 on admission. Stable between 1.2 and 1.5 this admission while diuresing. Unknown baseline. -continue to monitor renal function in the outpatient setting. -avoid nephrotoxic medications -renally dosed xarelto as noted above. Time Spent with Patient Time spent: Greater than 30 minutes Exam Vital Signs (past 8 hours): - 11/26/19 04:00 11/26/19 06:00 11/26/19 08:00 Temperature 97.6 F 96.4 F L Pulse Rate 76 67 Respiratory Rate 20 17 Blood Pressure 142/76 H 138/80 Pulse Oximetry 93 92 99 11/26/19 09:48 Temperature Pulse Rate Respiratory Rate Blood Pressure Pulse Oximetry 88 L Oxygen Delivery Method Room Air Oxygen Flow Rate 2 Narrative Exam Narrative: GENERAL APPEARANCE: Elderly male, slumped in hospital bed, in no acute distress. He does get winded with prolonged speaking but is slightly improved today. SKIN: Inspection of the skin reveals some small bruising in his upper extremities bilaterally. There are no bullous appearing lesions. His right lower extremity is erythematous and warm on the anterior aspect. Area of erythema is improved and has shrunken today. There are also some excoriations on the anterior part of his right lower extremity which appear to be scratch clements. non-tender bilaterally in b/l LE. HEENT: The sclerae were anicteric and conjunctivae were pink and moist. Extraocular movements were intact and pupils were equal, round with normal accommodation. External inspection of the ears and nose showed no scars, lesions, or masses. Lips, teeth, and gums showed normal mucosa. The oral mucosa, hard and soft palate, tongue and posterior pharynx were unremarkable. NECK: Supple and symmetric. There was no thyroid enlargement, and no tenderness, or masses were felt. + JVD CHEST: Normal AP diameter and normal contour without any kyphoscoliosis. LUNGS: Diminished breath sounds at the left lung base, bibasilar crackles slightly more prominent on the right. No wheezing. CARDIOVASCULAR: There was a regular rate and rhythm without any murmurs, gallops, rubs. Peripheral pulses were 2+ and symmetric. ABDOMEN: Soft and nontender with normal bowel sounds. No ascites was noted. MUSCULOSKELETAL: There was no tenderness or effusions noted. Muscle strength and tone were normal. EXTREMITIES: No cyanosis, clubbing. There is 1+ pitting edema bilaterally in the lower extremities improved. With improved erythema and warmth as noted above. NEUROLOGIC: Alert and oriented x 3. Normal affect. Some cognitive impairment is evident. Strength is +5/5 in the Upper Extremities and Lower Extremities Bilaterally. Sensation to touch was normal. Objective Labs Result Diagrams: 11/25/19 05:30 11/26/19 00:55 Labs: Laboratory Results - last 24 hr 11/26/19 00:55 Sodium 143 Potassium 4.8 Chloride 100 Carbon Dioxide 39 H BUN 63 H Creatinine 1.40 H Estimated GFR 48.4 L BUN/Creatinine Ratio 45.0 H Glucose 73 L Calcium 8.8 Magnesium 2.4 H Discharge Plan Discharge Plan Patient Disposition: Home Health Service Discharge comment: You were admitted to the hospital with a heart failure exacerbation. You improved with IV medication to remove excess fluid. Your heart function is the same as it was 10 years ago, however there are new areas of your heart that aren't moving like they should. You were also found to have episodes of atrial fibrillation and were started on xarelto, a blood thinner. The dosing of this may need to be changed depending on your kidney function. You should see a airplane patrol pilot for your heart failure and atrial fibrillation. You also had an arrythmia called non-sustained ventricular tachycardia. Your dose of carvedilol should be increased when able as an outpatient. You should continue to take oral lasix (furosemide) twice daily and this may need to be reduced when you see your primary care provider. However, Please monitor your weight daily and contact your primary care provider if you're trending up in weight by more than 3-4 lbs as your dose may need to be increased. Try and limit your fluid intake to around 1.5 L per day. You should probably also have an outpatient sleep study as your oxygen tends to fall when you're sleeping. Discharge orders & Medications Prescriptions: New Xarelto 10 mg Tablet 15 mg PO DAILYCC 30 Days Qty: 30 RF: 0 furosemide 40 mg tablet 40 mg PO BID 30 Days Qty: 60 RF: 0 doxycycline hyclate 100 mg tablet 100 mg PO BID 5 Days Qty: 10 RF: 0 Continued Lantus U-100 Insulin 100 unit/mL Solution 30 unit SUBCUT DAILY RF: 0 tiotropium bromide 18 mcg Capsule, W/Inhalation Device 1 cap INHALATION DAILY RF: 0 venlafaxine 37.5 mg capsule,extended release 24hr 37.5 mg PO DAILY RF: 0 carvedilol 12.5 mg tablet 12.5 mg PO BID RF: 0 melatonin 3 mg Tablet 3 mg PO BEDTIME PRN (Reason: Insomnia) RF: 0 telmisartan 40 mg tablet 40 mg PO DAILY RF: 0 ferrous sulfate 325 mg (65 mg iron) Tablet 325 mg PO DAILY RF: 0 mupirocin calcium 2 % Cream 1 applic TOPICAL TID RF: 0 albuterol sulfate [ProAir HFA] 90 mcg/actuation Hfa Aerosol Inhaler 2 puff INHALATION Q4H PRN (Reason: Wheezing) RF: 0 clotrimazole 1 % Cream 1 applic TOPICAL DIRECTED RF: 0 Discontinued furosemide 40 mg tablet 40 mg PO MOWEFR RF: 0 methotrexate sodium 2.5 mg tablet 10 mg PO QWEEK RF: 0 diphenhydramine HCl [Benadryl] 25 mg Capsule 25 mg PO TID RF: 0 folic acid 1 mg tablet 1 mg PO DAILY RF: 0 Discharge Health Status Health Concerns: CHFrEF exacerbation Atrial fibrillation non-sustained ventricular tachycardia. Diet/Activity/Treatments Diet: Diet as Tolerated and Low-cholesterol Diet comment: Limit fluid to 1.5 L daily Activity: As tolerated Visit Report/Discharge Packet Instructions: DI for Heart Failure, DI for Atrial Fibrillation, How to Prevent Falls
[2019-11-26 11:06] VITALS: O2SAT 93
--- NOTE | 2019-11-26 11:09 | CM.DPC ---
DCP Cont: Received discharge orders, Dr. Dillon does not seem to think that patient needs oxygen, but may need a sleep study. Called [facility], spoke to Guicho and let her know that patient is being discharged today. Left patient's daughter, Gerald, a message. Patient is unable to sign IMM, stated, my daughter should see it. Patient is to get nursing, P.T, O.T, bath aide. Sent over discharge summary, orders, face to face, to [facility]. P: Patient is to discharge home with daughter with [facility]. Will attempt to meet with daughter today. Apurva Baumann RN/Business Assistant
== END 2019-11-26 11:30 | disposition home health service (06) | DRG 291 ==
LOC: ED 15:47 → AC 15:50
PROVIDERS: Nurse Practitioner Adult Health; Admitting Provider Internal Medicine; Emergency Provider Emergency Medicine; Visit Provider Internal Medicine
DX: I13.0 Hypertensive heart and chronic kidney disease with heart failure and stage 1 through stage 4 chronic kidney disease, or unspecified chronic kidney disease (principal); I50.21 Acute systolic (congestive) heart failure; J96.01 Acute respiratory failure with hypoxia; L03.115 Cellulitis of right lower limb; E11.22 Type 2 diabetes mellitus with diabetic chronic kidney disease; F03.90 Unspecified dementia, unspecified severity, without behavioral disturbance, psychotic disturbance, mood disturbance, and anxiety; N18.9 Chronic kidney disease, unspecified; I48.0 Paroxysmal atrial fibrillation; J44.9 Chronic obstructive pulmonary disease, unspecified; Z87.891 Personal history of nicotine dependence; Z79.4 Long term (current) use of insulin
CPT/HCPCS: 36415; 71046; 80048; 80053; 80061; 82550; 82962; 83036; 83605; 83735; 83880; 84443; 84484; 85025; 93005; 93306; 94640; 94760; 96374; 97116; 97161; 97165; 97530; 99284; 99285; J1644; J1940

== ENCOUNTER → 2020-03-05 14:48 | Outpatient (CLI) | payer MEDICARE, OTHER, SELFPAY ==
[2019-11-23 17:48] VITALS: BMI 32.1
[2020-03-05 15:57] LABS: Add Manual Diff / Slide Review NO; Basophils Absolute Auto 0 /uL (0-100); Basophils Percent Auto 0.5 % (0-2); Eosinophils Absolute Auto 800 /uL (0-450); Eosinophils Percent Auto 8.9 % (2-4); Hematocrit 37.3 % (41-53); Hemoglobin 12.1 g/dL (13.5-17.5); Lymphocytes Absolute Auto 1600 /uL (1100-4500); Lymphocytes Percent Auto 19.2 % (25-40); Mean Corpuscular HGB Conc 32.3 % (30-36); Mean Corpuscular Hemoglobin 29.4 PG (26-34); Mean Corpuscular Volume 90.9 fL (80-100); Monocytes Absolute Auto 900 /uL (0-900); Monocytes Percent Auto 10.2 % (3-14); Neutrophils Absolute Auto 5100 /uL (1500-7000); Neutrophils Percent Auto 61.2 % (50-75); Platelet Count 291 X10^3/uL (150-400); Red Blood Cell Count 4.11 X10^6/uL (4.5-5.9); White Blood Cell Count 8.4 X10^3/uL (4.5-11.0)
[2020-03-05 18:04] LABS: BUN Creatinine Ratio 44.9 (6-22); Blood Urea Nitrogen 80 mg/dL (9-20); Calcium 8.6 mg/dL (8.4-10.2); Carbon Dioxide 26 mmol/L (22-32); Chloride 101 mmol/L (98-107); Estimated Glomerular Filt Rate 36.6 mL/min (>60); Glucose 141 mg/dL (80-110); HEMOLYSIS < 15 (0-50); Potassium 4.4 mmol/L (3.4-5.1); Sodium 138 mmol/L (137-145)
== END ==
PROVIDERS: Referring Provider Internal Medicine Cardiovascular Disease; Visit Provider Internal Medicine Cardiovascular Disease
DX: I42.0 Dilated cardiomyopathy (principal)
CPT/HCPCS: 36415; 80048; 85025

== ENCOUNTER → 2020-03-12 10:52 | Outpatient (CLI) | payer MEDICARE, OTHER, SELFPAY ==
[2019-11-23 17:48] VITALS: BMI 32.1
== END ==
PROVIDERS: PCP Podiatrist; Referring Provider Podiatrist; Visit Provider Family Medicine
DX: E11.621 Type 2 diabetes mellitus with foot ulcer (principal); I87.2 Venous insufficiency (chronic) (peripheral); L97.421 Non-pressure chronic ulcer of left heel and midfoot limited to breakdown of skin; L97.221 Non-pressure chronic ulcer of left calf limited to breakdown of skin; L97.821 Non-pressure chronic ulcer of other part of left lower leg limited to breakdown of skin; E11.51 Type 2 diabetes mellitus with diabetic peripheral angiopathy without gangrene; L03.116 Cellulitis of left lower limb; I50.22 Chronic systolic (congestive) heart failure
CPT/HCPCS: 11042; 87070; 87077; 87147; 87185; 87186; 87205; 97597; 99203; 99214

== ENCOUNTER → 2020-03-25 14:21 | Outpatient (CLI) | payer MEDICARE, OTHER, SELFPAY ==
[2019-11-23 17:48] VITALS: BMI 32.1
== END ==
PROVIDERS: PCP Podiatrist; Referring Provider Podiatrist; Visit Provider Family Medicine
DX: E11.621 Type 2 diabetes mellitus with foot ulcer (principal); L97.421 Non-pressure chronic ulcer of left heel and midfoot limited to breakdown of skin
CPT/HCPCS: 11042

== ENCOUNTER → 2020-04-01 13:53 | Outpatient (CLI) | payer MEDICARE, OTHER, SELFPAY ==
[2019-11-23 17:48] VITALS: BMI 32.1
[2020-04-01 16:20] LABS: Add Manual Diff / Slide Review NO; Basophils Absolute Auto 100 /uL (0-100); Basophils Percent Auto 0.9 % (0-2); Eosinophils Absolute Auto 800 /uL (0-450); Eosinophils Percent Auto 8.1 % (2-4); Hematocrit 36.1 % (41-53); Lymphocytes Absolute Auto 1800 /uL (1100-4500); Lymphocytes Percent Auto 19.8 % (25-40); Mean Corpuscular HGB Conc 33.2 % (30-36); Mean Corpuscular Hemoglobin 30.4 PG (26-34); Mean Corpuscular Volume 91.8 fL (80-100); Monocytes Absolute Auto 800 /uL (0-900); Monocytes Percent Auto 8.2 % (3-14); Neutrophils Absolute Auto 5800 /uL (1500-7000); Platelet Count 223 X10^3/uL (150-400); Red Blood Cell Count 3.93 X10^6/uL (4.5-5.9); Red Cell Distribution Width 14.2 % (11.6-14.8); White Blood Cell Count 9.2 X10^3/uL (4.5-11.0)
[2020-04-01 16:45] LABS: BUN Creatinine Ratio 34.9 (6-22); Blood Urea Nitrogen 59 mg/dL (9-20); Calcium 8.6 mg/dL (8.4-10.2); Carbon Dioxide 27 mmol/L (22-32); Chloride 103 mmol/L (98-107); Estimated Glomerular Filt Rate 38.9 mL/min (>60); Glucose 124 mg/dL (80-110); HEMOLYSIS < 15 (0-50); Potassium 4.4 mmol/L (3.4-5.1); Sodium 138 mmol/L (137-145)
== END ==
PROVIDERS: PCP Podiatrist; Referring Provider Internal Medicine Cardiovascular Disease; Visit Provider Internal Medicine Cardiovascular Disease
DX: I42.0 Dilated cardiomyopathy (principal)
CPT/HCPCS: 36415; 80048; 85025

== ENCOUNTER → 2020-04-08 14:12 | Outpatient (CLI) | payer MEDICARE, OTHER, SELFPAY ==
[2019-11-23 17:48] VITALS: BMI 32.1
== END ==
PROVIDERS: PCP Podiatrist; Referring Provider Podiatrist; Visit Provider Family Medicine
DX: E11.621 Type 2 diabetes mellitus with foot ulcer (principal); L97.429 Non-pressure chronic ulcer of left heel and midfoot with unspecified severity; M77.31 Calcaneal spur, right foot; I87.2 Venous insufficiency (chronic) (peripheral); L97.421 Non-pressure chronic ulcer of left heel and midfoot limited to breakdown of skin; L97.811 Non-pressure chronic ulcer of other part of right lower leg limited to breakdown of skin; L97.821 Non-pressure chronic ulcer of other part of left lower leg limited to breakdown of skin; L08.9 Local infection of the skin and subcutaneous tissue, unspecified
CPT/HCPCS: 11042; 73630; 87070; 87075; 87077; 87147; 87186; 87205; 99214

== ENCOUNTER → 2020-04-08 16:04 | Outpatient (CLI) | payer MEDICARE, OTHER, SELFPAY ==
[2019-11-23 17:48] VITALS: BMI 32.1
--- NOTE | 2020-04-08 | DI.RAD.S_ITS ---
PROCEDURE: XR FOOT LT MIN 3V INDICATIONS: EVAL OF OSTEO TECHNIQUE: 3 views of the foot were acquired. COMPARISON: None. FINDINGS: Bones: No fractures or dislocations. No suspicious bony lesions that would indicate presence of osteomyelitis. Note is made of a small degree of plantar fascia and Achilles tendon insertion spurring at the posterior calcaneus. Soft tissues: No tibiotalar joint effusion. Achilles tendon appears normal. There is an apparent soft tissue ulceration at the superficial plantar aspect of the posterior calcaneus, without extension of infection into the osseous margins of the calcaneus in that area by plain film appearance. IMPRESSION: Plain film appearance shows what appears to be a soft tissue ulceration superficial to the posterior margin of the calcaneus, plantar soft tissues, without overlying osteomyelitis. Mild Achilles tendon and plantar fascial insertion spurring is noted. By this examination underlying osteomyelitis is not found. Dictated by: Mekhi Loco M.D. on 04/08/2020 at 17:31 Approved by: Mekhi Loco M.D. on 04/08/2020 at 17:34
== END ==
PROVIDERS: PCP Podiatrist; Referring Provider Family Medicine; Visit Provider Family Medicine
DX: E11.621 Type 2 diabetes mellitus with foot ulcer (principal); L97.429 Non-pressure chronic ulcer of left heel and midfoot with unspecified severity; M77.31 Calcaneal spur, right foot
CPT/HCPCS: 73630

== ENCOUNTER → 2020-04-16 14:06 | Outpatient (CLI) | payer MEDICARE, OTHER, SELFPAY ==
[2019-11-23 17:48] VITALS: BMI 32.1
== END ==
PROVIDERS: PCP Podiatrist; Referring Provider Podiatrist; Visit Provider Family Medicine
DX: E11.621 Type 2 diabetes mellitus with foot ulcer (principal); I87.2 Venous insufficiency (chronic) (peripheral); L97.421 Non-pressure chronic ulcer of left heel and midfoot limited to breakdown of skin; L12.0 Bullous pemphigoid; S81.802A Unspecified open wound, left lower leg, initial encounter; E11.40 Type 2 diabetes mellitus with diabetic neuropathy, unspecified; R60.0 Localized edema
CPT/HCPCS: 11042; 97597; 99214

== ENCOUNTER → 2020-04-18 16:34 | Outpatient (CLI) | payer MEDICARE, OTHER, SELFPAY ==
[2019-11-23 17:48] VITALS: BMI 32.1
== END ==
PROVIDERS: PCP Podiatrist; Referring Provider Podiatrist; Visit Provider Family Medicine
DX: E11.621 Type 2 diabetes mellitus with foot ulcer (principal); L97.421 Non-pressure chronic ulcer of left heel and midfoot limited to breakdown of skin; S81.802A Unspecified open wound, left lower leg, initial encounter; L12.0 Bullous pemphigoid
CPT/HCPCS: 99214; 99215

== ENCOUNTER → 2020-04-22 13:19 | Outpatient (CLI) | payer MEDICARE, OTHER, SELFPAY ==
[2019-11-23 17:48] VITALS: BMI 32.1
== END ==
PROVIDERS: PCP Podiatrist; Referring Provider Podiatrist; Visit Provider Family Medicine
DX: E11.621 Type 2 diabetes mellitus with foot ulcer (principal); L97.421 Non-pressure chronic ulcer of left heel and midfoot limited to breakdown of skin; S81.802A Unspecified open wound, left lower leg, initial encounter; L12.0 Bullous pemphigoid; E11.40 Type 2 diabetes mellitus with diabetic neuropathy, unspecified
CPT/HCPCS: 97597

== ENCOUNTER → 2020-04-24 14:21 | Outpatient (CLI) | payer MEDICARE, OTHER, SELFPAY ==
[2019-11-23 17:48] VITALS: BMI 32.1
== END ==
PROVIDERS: PCP Podiatrist; Referring Provider Podiatrist; Visit Provider Family Medicine
DX: E11.628 Type 2 diabetes mellitus with other skin complications (principal); S81.802A Unspecified open wound, left lower leg, initial encounter; L12.0 Bullous pemphigoid
CPT/HCPCS: 29445

== ENCOUNTER → 2020-05-01 13:27 | Outpatient (CLI) | payer MEDICARE, OTHER, SELFPAY ==
[2019-11-23 17:48] VITALS: BMI 32.1
== END ==
PROVIDERS: PCP Podiatrist; Referring Provider Podiatrist; Visit Provider Family Medicine
DX: E11.621 Type 2 diabetes mellitus with foot ulcer (principal); L97.421 Non-pressure chronic ulcer of left heel and midfoot limited to breakdown of skin; L12.0 Bullous pemphigoid; S81.802A Unspecified open wound, left lower leg, initial encounter; S81.801A Unspecified open wound, right lower leg, initial encounter
CPT/HCPCS: 29445; 97597; 99213

== ENCOUNTER → 2020-05-08 13:19 | Outpatient (CLI) | payer MEDICARE, OTHER, SELFPAY ==
[2019-11-23 17:48] VITALS: BMI 32.1
== END ==
PROVIDERS: PCP Podiatrist; Referring Provider Podiatrist; Visit Provider Family Medicine
DX: E11.621 Type 2 diabetes mellitus with foot ulcer (principal); L97.421 Non-pressure chronic ulcer of left heel and midfoot limited to breakdown of skin; L12.0 Bullous pemphigoid; S81.801A Unspecified open wound, right lower leg, initial encounter
CPT/HCPCS: 29445; 99212

== ENCOUNTER → 2020-05-15 14:20 | Outpatient (CLI) | payer MEDICARE, OTHER, SELFPAY ==
[2019-11-23 17:48] VITALS: BMI 32.1
== END ==
PROVIDERS: PCP Podiatrist; Referring Provider Podiatrist; Visit Provider Family Medicine
DX: L12.0 Bullous pemphigoid (principal); L01.01 Non-bullous impetigo; S31.819A Unspecified open wound of right buttock, initial encounter
CPT/HCPCS: 87070; 87075; 87077; 87205; 97597; 99214

== ENCOUNTER → 2020-05-23 14:10 | Outpatient (CLI) | payer MEDICARE, OTHER, SELFPAY ==
[2019-11-23 17:48] VITALS: BMI 32.1
== END ==
PROVIDERS: PCP Podiatrist; Referring Provider Podiatrist; Visit Provider Family Medicine
DX: L12.0 Bullous pemphigoid (principal); S31.819A Unspecified open wound of right buttock, initial encounter; L08.9 Local infection of the skin and subcutaneous tissue, unspecified
CPT/HCPCS: 99213; 99214

== ENCOUNTER → 2020-06-06 14:53 | Outpatient (CLI) | payer MEDICARE, OTHER, SELFPAY ==
[2019-11-23 17:48] VITALS: BMI 32.1
== END ==
PROVIDERS: PCP Podiatrist; Referring Provider Podiatrist; Visit Provider Family Medicine
DX: L12.0 Bullous pemphigoid (principal); S31.819A Unspecified open wound of right buttock, initial encounter; L97.221 Non-pressure chronic ulcer of left calf limited to breakdown of skin
CPT/HCPCS: 97597; 99214

== ENCOUNTER → 2020-06-10 13:23 | Outpatient (CLI) | payer MEDICARE, OTHER, SELFPAY ==
[2019-11-23 17:48] VITALS: BMI 32.1
[2020-06-10 15:09] LABS: Add Manual Diff / Slide Review NO; Basophils Absolute Auto 0 /uL (0-100); Basophils Percent Auto 0.6 % (0-2); Eosinophils Absolute Auto 400 /uL (0-450); Eosinophils Percent Auto 4.7 % (2-4); Hematocrit 38.4 % (41-53); Hemoglobin 12.5 g/dL (13.5-17.5); Lymphocytes Absolute Auto 1700 /uL (1100-4500); Lymphocytes Percent Auto 22.3 % (25-40); Mean Corpuscular HGB Conc 32.5 % (30-36); Mean Corpuscular Hemoglobin 30.2 PG (26-34); Mean Corpuscular Volume 93.1 fL (80-100); Monocytes Absolute Auto 800 /uL (0-900); Monocytes Percent Auto 10.1 % (3-14); Neutrophils Absolute Auto 4700 /uL (1500-7000); Neutrophils Percent Auto 62.3 % (50-75); Platelet Count 235 X10^3/uL (150-400); Red Blood Cell Count 4.12 X10^6/uL (4.5-5.9); Red Cell Distribution Width 15.1 % (11.6-14.8); White Blood Cell Count 7.5 X10^3/uL (4.5-11.0)
[2020-06-10 15:24] LABS: BUN Creatinine Ratio 33.3 (6-22); Blood Urea Nitrogen 52 mg/dL (9-20); Calcium 8.8 mg/dL (8.4-10.2); Carbon Dioxide 27 mmol/L (22-32); Chloride 102 mmol/L (98-107); Estimated Glomerular Filt Rate 42.6 mL/min (>60); Glucose 130 mg/dL (80-110); HEMOLYSIS < 15 (0-50); Potassium 4.7 mmol/L (3.4-5.1); Sodium 136 mmol/L (137-145)
== END ==
PROVIDERS: PCP Internal Medicine; Referring Provider Internal Medicine Cardiovascular Disease; Visit Provider Internal Medicine Cardiovascular Disease
DX: I42.0 Dilated cardiomyopathy (principal)
CPT/HCPCS: 36415; 80048; 85025

== ENCOUNTER → 2020-06-20 13:31 | Outpatient (CLI) | payer MEDICARE, OTHER, SELFPAY ==
[2019-11-23 17:48] VITALS: BMI 32.1
[2020-06-20 15:56] LABS: BUN Creatinine Ratio 45.7 (6-22); Blood Urea Nitrogen 79 mg/dL (9-20); Calcium 8.9 mg/dL (8.4-10.2); Carbon Dioxide 24 mmol/L (22-32); Chloride 102 mmol/L (98-107); Estimated Glomerular Filt Rate 37.8 mL/min (>60); Glucose 102 mg/dL (80-110); HEMOLYSIS < 15 (0-50); Potassium 5.1 mmol/L (3.4-5.1); Sodium 137 mmol/L (137-145)
== END ==
PROVIDERS: PCP Internal Medicine; Referring Provider Internal Medicine Cardiovascular Disease; Visit Provider Family Medicine
DX: L12.0 Bullous pemphigoid (principal); S31.819A Unspecified open wound of right buttock, initial encounter; I50.22 Chronic systolic (congestive) heart failure
CPT/HCPCS: 36415; 80048; 99212; 99213

== ENCOUNTER → 2020-07-04 13:58 | Outpatient (CLI) | payer MEDICARE, OTHER, SELFPAY ==
[2019-11-23 17:48] VITALS: BMI 32.1
== END ==
PROVIDERS: PCP Internal Medicine; Referring Provider Internal Medicine; Visit Provider Family Medicine
DX: L12.0 Bullous pemphigoid (principal); S31.819A Unspecified open wound of right buttock, initial encounter
CPT/HCPCS: 99213

== ENCOUNTER → 2020-07-18 13:46 | Outpatient (CLI) | payer MEDICARE, OTHER, SELFPAY ==
[2019-11-23 17:48] VITALS: BMI 32.1
== END ==
PROVIDERS: PCP Internal Medicine; Referring Provider Internal Medicine; Visit Provider Family Medicine
DX: L12.0 Bullous pemphigoid (principal); S31.819A Unspecified open wound of right buttock, initial encounter
CPT/HCPCS: 99212; 99213

== ENCOUNTER → 2020-07-18 13:59 | Outpatient (CLI) | payer MEDICARE, OTHER, SELFPAY ==
[2019-11-23 17:48] VITALS: BMI 32.1
[2020-07-18 15:17] LABS: Add Manual Diff / Slide Review NO; Basophils Absolute Auto 100 /uL (0-100); Basophils Percent Auto 0.8 % (0-2); Eosinophils Absolute Auto 600 /uL (0-450); Eosinophils Percent Auto 7.1 % (2-4); Hematocrit 37.1 % (41-53); Hemoglobin 12.4 g/dL (13.5-17.5); Lymphocytes Absolute Auto 1200 /uL (1100-4500); Lymphocytes Percent Auto 14.5 % (25-40); Mean Corpuscular HGB Conc 33.4 % (30-36); Mean Corpuscular Hemoglobin 30.7 PG (26-34); Mean Corpuscular Volume 91.9 fL (80-100); Monocytes Absolute Auto 900 /uL (0-900); Monocytes Percent Auto 11.1 % (3-14); Neutrophils Absolute Auto 5300 /uL (1500-7000); Neutrophils Percent Auto 66.5 % (50-75); Platelet Count 228 X10^3/uL (150-400); Red Blood Cell Count 4.04 X10^6/uL (4.5-5.9); Red Cell Distribution Width 14.5 % (11.6-14.8)
[2020-07-18 15:41] LABS: Albumin 3.5 g/dL (3.5-5.0); BUN Creatinine Ratio 35.2 (6-22); Blood Urea Nitrogen 64 mg/dL (9-20); Calcium 8.6 mg/dL (8.4-10.2); Carbon Dioxide 24 mmol/L (22-32); Chloride 103 mmol/L (98-107); Estimated Glomerular Filt Rate 35.7 mL/min (>60); Glucose 118 mg/dL (80-110); HEMOLYSIS < 15 (0-50); Phosphorous 4.6 mg/dL (2.3-3.7); Potassium 4.8 mmol/L (3.4-5.1); Sodium 136 mmol/L (137-145)
[2020-07-18 15:42] LABS: BUN Creatinine Ratio 37.1 (6-22); Blood Urea Nitrogen 65 mg/dL (9-20); Calcium 8.5 mg/dL (8.4-10.2); Carbon Dioxide 25 mmol/L (22-32); Chloride 104 mmol/L (98-107); Estimated Glomerular Filt Rate 37.3 mL/min (>60); Glucose 115 mg/dL (80-110); HEMOLYSIS < 15 (0-50); Potassium 4.8 mmol/L (3.4-5.1); Sodium 136 mmol/L (137-145)
[2020-07-18 16:14] LABS: Vitamin D 25 Hydroxy (D3) 26.1 ng/mL (30.0-100.0)
[2020-07-19 07:09] LABS: Parathyroid Hormone Int 109 pg/mL (15-65)
== END ==
PROVIDERS: PCP Internal Medicine; Referring Provider Internal Medicine Nephrology; Visit Provider Internal Medicine Nephrology
DX: N18.3 Chronic kidney disease, stage 3 (moderate) (principal)
CPT/HCPCS: 36415; 80048; 80069; 82306; 83970; 85025

== ENCOUNTER 2020-08-01 14:42 | Emergency (ER) | payer MEDICARE, OTHER, SELFPAY ==
[2019-11-23 17:48] VITALS: BMI 32.1
[2020-08-01] VITALS (16 sets, daily range): BP systolic 125–170; BP diastolic 58–78; PULSE 62–89; RESP 16–34; TEMP 37.2; O2SAT 93–99; BMI 28.5
--- NOTE | 2020-08-01 15:07 | ED.WEAKNESS ---
HPI - Weakness General Chief complaint: Weakness Stated complaint: sleeping alot/ lethargic/ doesnt want to do anythi Time Seen by Provider: 08/01/20 15:04 Source: patient and family Mode of arrival: Ambulatory Limitations: no limitations History of Present Illness HPI Narrative: Patient is a 85-year-old male with history of diabetes CHF,, dyslipidemia, EMIL, right bundle-branch block presenting with his daughter for increased weakness. She states that he is extremely tired and can not stay awake he states all he wants to do is sleep. He has previously presented this way when he is in atrial fibrillation however he is in normal sinus rhythm with rate of 68. He denies any chest pain palpitations shortness of breath abdominal pain nausea or vomiting no peripheral edema no shortness of breath no fever or cough. He just says she is more tired than usual. MD Complaint: generalized weakness Related Data Home Medications Medication Instructions Recorded Confirmed Lantus U-100 Insulin 30 unit SUBCUT DAILY 11/23/19 11/23/19 albuterol sulfate [ProAir HFA] 2 puff INHALATION Q4H PRN 11/23/19 11/23/19 carvedilol 12.5 mg PO BID 11/23/19 11/23/19 clotrimazole 1 applic TOPICAL DIRECTED 11/23/19 11/23/19 ferrous sulfate 325 mg PO DAILY 11/23/19 11/23/19 melatonin 3 mg PO BEDTIME PRN 11/23/19 11/23/19 mupirocin calcium 1 applic TOPICAL TID 11/23/19 11/23/19 telmisartan 40 mg PO DAILY 11/23/19 11/23/19 tiotropium bromide 1 cap INHALATION DAILY 11/23/19 11/23/19 venlafaxine 37.5 mg PO DAILY 11/23/19 11/23/19 Allergies Allergy/AdvReac Type Severity Reaction Status Date / Time No Known Drug Allergies Allergy Verified 11/23/19 18:42 Review of Systems Review of Systems ROS Unobtainable: All systems reviewed & are unremarkable except as noted in HPI and below Constitutional Constitutional: Denies chills, Reports daytime sleepiness, Reports fatigue, Denies fever(s), Denies frequent falls, Denies increased appetite, Denies lethargy and Denies weakness Eyes Eyes: Denies change in vision, Denies eye discharge, Denies irritation and Denies loss of vision ENT Ears, Nose, Mouth, and Throat: Denies change in voice, Denies neck pain and Denies sore throat Cardiovascular Cardiovascular: Denies chest pain, Denies irregular heart rhythm, Denies lightheadedness, Denies palpitations, Denies dyspnea, Denies dyspnea on exertion and Denies orthopnea Respiratory Respiratory: Denies cough, Denies dyspnea, Denies dyspnea on exertion and Denies wheezing Gastrointestinal Gastrointestinal: Denies abdominal pain, Denies change in bowel habits, Denies diarrhea, Denies nausea and Denies vomiting Musculoskeletal Musculoskeletal: Denies back pain and Denies neck pain Integumentary/Breasts Skin/Breast: Denies pruritus, Denies erythema, Denies rash and Denies wounds Neurologic Neurologic: Denies frequent falls, Denies loss of vision and Denies weakness Endocrine Endocrine: Reports fatigue and Denies palpitations Allergic/Immunologic Allergic/Immunologic: Denies wheezing Patient History Medical History Age related osteoporosis (Acute) Alzheimer's dementia (Acute) Arthritis of right hip (Acute) Cataract (Acute) Congestive heart failure (CHF) (Acute) COPD (chronic obstructive pulmonary disease) (Acute) Diabetes type 2, controlled (Acute) Hard of hearing (Acute) Hyperlipemia (Acute) Hypertension (Acute) Umbilical hernia (Acute) Social History household members: family Smoking Status: Former smoker alcohol intake: current Smoking Status: Former smoker alcohol intake frequency: a few times a month Substance Use Type: marijuana Exam Initial Vital Signs Initial Vital Signs: Vital Signs Pulse Rate 89 08/01/20 14:49 Blood Pressure 146/67 H 08/01/20 14:49 Pulse Oximetry 95 08/01/20 14:49 GENERAL: Alert chronically ill elderly male and in no acute distress. HEENT: Head atraumatic,EOMI, pupils reactive, face symmetric, moist mucous membranes CARDIOVASCULAR: Regular rate and rhythm without murmurs, rubs or gallops. RESPIRATORY: Breath sounds equal bilaterally, no wheezes rales or rhonchi. ABDOMEN: Soft, nontender. Normoactive bowel sounds all 4 quadrants. No guarding or rebound. Umbilical hernia present EXTREMITIES: Normal range of motion, no clubbing or edema. Neurovascularly intact NEUROLOGICAL: Alert and oriented x4.Normal gait and speech. Cold Roller strength equal bilaterally lower extremity strength equal SKIN: Some mild erythema on lower extremities is chronic Scores ABCD2 Citation: Lancet. 2006Dec 18;369(4838):283-57. Validation and refinement of scores to predict very early stroke risk after transient ischaemic attack. Sudhir SC1, Frandy PM, Denise MN, Itz MF, Blane JS, Thao AL, Song S. NIH Stroke Scale Level of Conciousness: Alert, keenly responsive Ask month/age: Answers both questions correctly. Open/close eyes, close hand: Performs both tasks correctly Best gaze horizontal: Normal Visual pena: No visual loss Facial palsy: Normal symetrical movement Left arm drift: No drift for full 10 sec Right arm drift: No drift for full 10 sec Left leg drift: No drift for full 5 sec Right leg drift: No drift for full 5 sec Limb ataxia: Absent Sensory on face/arms/legs: Normal, no sensory loss Best language: No aphasia, normal Dysarthria: Normal Extinction or inattention: No abnormality Total NIH Stroke scale score: 0 Course Orders Ordered: ED Orders 08/01/20 14:58 EKG-12 Lead Routine 08/01/20 15:01 Complete Blood Count AUTO DIFF Stat Comprehensive Metabolic Panel Stat Lactate (Lactic Acid) Stat NT-proBNP (BNP-Adult 18+) Stat Procalcitonin Stat Troponin & CK Cardiac Panel Stat 08/01/20 15:19 XR chest 1V Stat 08/01/20 16:02 Blood Culture Stat 08/01/20 16:08 Arterial Blood Gas Stat 08/01/20 18:33 COVID19 -ED/INPAT/OR/L&D Stat Vital Signs Vital signs: Vital Signs - 8 hr 08/01/20 14:49 08/01/20 14:52 08/01/20 15:00 Temperature 99.0 F Pulse Rate 89 75 69 Respiratory Rate 22 30 H Blood Pressure 146/67 H 146/67 H Pulse Oximetry 95 98 98 08/01/20 15:30 08/01/20 16:00 08/01/20 16:22 Temperature Pulse Rate 68 73 65 Respiratory Rate 31 H 33 H 34 H Blood Pressure 128/60 142/67 H Pulse Oximetry 98 95 96 08/01/20 16:30 08/01/20 17:00 09/10/20 17:30 Temperature Pulse Rate 63 64 65 Respiratory Rate 25 H 25 H Blood Pressure 133/70 142/67 H 125/58 L Pulse Oximetry 97 96 08/01/20 18:00 08/01/20 18:30 08/01/20 18:31 Temperature Pulse Rate 63 75 70 Respiratory Rate 34 H 29 H Blood Pressure 143/65 H 170/78 H Pulse Oximetry 99 99 99 08/01/20 19:00 08/01/20 19:30 08/01/20 19:31 Temperature Pulse Rate 69 62 63 Respiratory Rate 24 25 H 27 H Blood Pressure 155/67 H Pulse Oximetry 99 96 97 08/01/20 19:47 Temperature Pulse Rate 62 Respiratory Rate 16 Blood Pressure 155/67 H Pulse Oximetry 93 MDM - Weakness Lab Data Attestation: I reviewed the patient's lab results. Result diagrams: 08/01/20 15:01 08/01/20 15:01 Labs: Lab Results 08/01/20 08/01/20 08/01/20 Range/Units 15:01 15:01 15:01 WBC 8.9 (4.5-11.0) X10^3/uL RBC 3.88 L (4.5-5.9) X10^6/uL Hgb 11.9 L (13.5-17.5) g/dL Hct 35.2 L (41-53) % MCV 90.9 (80-100) fL MCH 30.7 (26-34) PG MCHC 33.7 (30-36) % RDW 13.8 (11.6-14.8) % Plt Count 347 (150-400) X10^3/uL Neut % (Auto) 70.2 (50-75) % Lymph % (Auto) 10.3 L (25-40) % [place] % (Auto) 12.7 (3-14) % Eos % (Auto) 5.8 H (2-4) % Baso % (Auto) 1.0 (0-2) % Neut # (Auto) 6300 (4969-7187) /uL Lymph # (Auto) 900 L (7538-0301) /uL [place] # (Auto) 1100 H (0-900) /uL Eos # (Auto) 500 H (0-450) /uL Baso # (Auto) 100 (0-100) /uL ABG pH (7.35-7.45) ABG pCO2 (35-45) mmHg ABG pO2 (80-100) mmHg ABG HCO3 (22-26) mmol/L ABG Total CO2 (21-31) mmol/L ABG O2 Saturation (95-100) % ABG Base Excess (-2-2) mmol/L FiO2 Sodium 136 L (137-145) mmol/L Potassium 5.0 (3.4-5.1) mmol/L Chloride 101 (98-107) mmol/L Carbon Dioxide 26 (22-32) mmol/L BUN 83 H (9-20) mg/dL Creatinine 1.95 H (0.66-1.25) mg/dL Estimated GFR 32.9 L (>60) mL/min BUN/Creatinine Ratio 42.6 H (6-22) Glucose 102 (80-110) mg/dL Lactate (0.7-2.1) mmol/L Calcium 8.5 (8.4-10.2) mg/dL Total Bilirubin 0.4 (0.2-1.3) mg/dL AST 23 (17-59) IU/L ALT 19 (<50) IU/L Alkaline Phosphatase 91 (38-126) U/L Total Creatine Kinase (55-170) U/L CK-MB (CK-2) CK-MB (CK-2) Rel Index Troponin I (0.01-0.034) ng/mL NT-Pro-B Natriuret Pep 3860 H (<450) pg/mL Total Protein 7.3 (6.3-8.2) g/dL Albumin 3.7 (3.5-5.0) g/dL Globulin 3.6 (1.7-4.1) g/dL Albumin/Globulin Ratio 1.0 (1.0-2.8) Procalcitonin 0.05 (<0.5) ng/mL COVID-19 PCR (Negative) 08/01/20 08/01/20 08/01/20 Range/Units 15:01 15:01 16:08 WBC (4.5-11.0) X10^3/uL RBC (4.5-5.9) X10^6/uL Hgb (13.5-17.5) g/dL Hct (41-53) % MCV (80-100) fL MCH (26-34) PG MCHC (30-36) % RDW (11.6-14.8) % Plt Count (150-400) X10^3/uL Neut % (Auto) (50-75) % Lymph % (Auto) (25-40) % [place] % (Auto) (3-14) % Eos % (Auto) (2-4) % Baso % (Auto) (0-2) % Neut # (Auto) (7497-7670) /uL Lymph # (Auto) (7283-5947) /uL [place] # (Auto) (0-900) /uL Eos # (Auto) (0-450) /uL Baso # (Auto) (0-100) /uL ABG pH 7.43 (7.35-7.45) ABG pCO2 35.5 (35-45) mmHg ABG pO2 75 L (80-100) mmHg ABG HCO3 24 (22-26) mmol/L ABG Total CO2 25 (21-31) mmol/L ABG O2 Saturation 95 (95-100) % ABG Base Excess -1.0 (-2-2) mmol/L FiO2 0.21 Sodium (137-145) mmol/L Potassium (3.4-5.1) mmol/L Chloride (98-107) mmol/L Carbon Dioxide (22-32) mmol/L BUN (9-20) mg/dL Creatinine (0.66-1.25) mg/dL Estimated GFR (>60) mL/min BUN/Creatinine Ratio (6-22) Glucose (80-110) mg/dL Lactate 1.6 (0.7-2.1) mmol/L Calcium (8.4-10.2) mg/dL Total Bilirubin (0.2-1.3) mg/dL AST (17-59) IU/L ALT (<50) IU/L Alkaline Phosphatase (38-126) U/L Total Creatine Kinase 45 L (55-170) U/L CK-MB (CK-2) TNP CK-MB (CK-2) Rel Index TNP Troponin I 0.017 (0.01-0.034) ng/mL NT-Pro-B Natriuret Pep (<450) pg/mL Total Protein (6.3-8.2) g/dL Albumin (3.5-5.0) g/dL Globulin (1.7-4.1) g/dL Albumin/Globulin Ratio (1.0-2.8) Procalcitonin (<0.5) ng/mL COVID-19 PCR (Negative) 08/01/20 Range/Units 18:33 WBC (4.5-11.0) X10^3/uL RBC (4.5-5.9) X10^6/uL Hgb (13.5-17.5) g/dL Hct (41-53) % MCV (80-100) fL MCH (26-34) PG MCHC (30-36) % RDW (11.6-14.8) % Plt Count (150-400) X10^3/uL Neut % (Auto) (50-75) % Lymph % (Auto) (25-40) % [place] % (Auto) (3-14) % Eos % (Auto) (2-4) % Baso % (Auto) (0-2) % Neut # (Auto) (6289-2173) /uL Lymph # (Auto) (1906-9473) /uL [place] # (Auto) (0-900) /uL Eos # (Auto) (0-450) /uL Baso # (Auto) (0-100) /uL ABG pH (7.35-7.45) ABG pCO2 (35-45) mmHg ABG pO2 (80-100) mmHg ABG HCO3 (22-26) mmol/L ABG Total CO2 (21-31) mmol/L ABG O2 Saturation (95-100) % ABG Base Excess (-2-2) mmol/L FiO2 Sodium (137-145) mmol/L Potassium (3.4-5.1) mmol/L Chloride (98-107) mmol/L Carbon Dioxide (22-32) mmol/L BUN (9-20) mg/dL Creatinine (0.66-1.25) mg/dL Estimated GFR (>60) mL/min BUN/Creatinine Ratio (6-22) Glucose (80-110) mg/dL Lactate (0.7-2.1) mmol/L Calcium (8.4-10.2) mg/dL Total Bilirubin (0.2-1.3) mg/dL AST (17-59) IU/L ALT (<50) IU/L Alkaline Phosphatase (38-126) U/L Total Creatine Kinase (55-170) U/L CK-MB (CK-2) CK-MB (CK-2) Rel Index Troponin I (0.01-0.034) ng/mL NT-Pro-B Natriuret Pep (<450) pg/mL Total Protein (6.3-8.2) g/dL Albumin (3.5-5.0) g/dL Globulin (1.7-4.1) g/dL Albumin/Globulin Ratio (1.0-2.8) Procalcitonin (<0.5) ng/mL COVID-19 PCR Negative (Negative) Urine Dip Bedside Urine Glucose Negative Bedside Urine Bilirubin - Negative Urine Specific [place] 1.015 Bedside Urine Occult Blood - Negative Bedside Urine pH 5.5 Bedside Urine Protein - Negative Bedside Urine Urobilinogen - Negative Bedside Urine Nitrite - Negative Bedside Urine Leukocytes - Negative Esterase Imaging Data Chest x-ray: Radiologist Impression: PROCEDURE: XR CHEST 1V INDICATIONS: weakness TECHNIQUE: One view of the chest was acquired. COMPARISON: [facility], , XR CHEST 2V, 11/23/2019, 13:19. FINDINGS: Surgical changes and devices: None. Lungs and pleura: Lungs are abnormal with mild interstitial prominence but improved from the comparison from November 2019. . No pleural effusions or pneumothorax. Mediastinum: Mediastinal contours appear normal. Heart size is normal. Bones and chest wall: No suspicious bony lesions. Overlying soft tissues appear unremarkable. IMPRESSION: Chronic mild interstitial prominence but improved from 11/23/19. No pneumonia found. Heart size within normal limits. Dictated by: Mekhi Loco M.D. on 08/01/2020 at 15:41 Approved by: Mekhi Loco M.D. on 08/01/2020 at 15:42 ECG Data Attestation: I personally reviewed and interpreted this ECG as follows: Prior ECG tracings: available for review Interpretation: Normal sinus rhythm rate 67 p.r. interval [address] depression noted in precordial leads similar to previous EKG no new changes MDM Narrative Medical decision making narrative: The patient shows some mild dehydration with mom slightly increased creatinine today. He does appear little sleepy ABG does not show any CO2 retention he does respond to voice and follows commands no sign of stroke or focal deficit. The patient certainly does not appear septic there is no infection. Daughter requested patient be tested for COVID which is negative. At this time patient will be discharged home. Discharge Plan Departure Patient Disposition: Home Clinical Impression: Worried well Discharge Date/Time: 08/01/20 19:50 Instructions: DI for Muscle Weakness Activity Restrictions/Additional Instructions: *You have been diagnosed with at this time no cause of weakness. *What to do: Blood work does show some mild dehydration please increase your fluid intake. No sign of infection no need for antibiotics *Continue to take medications as directed *Follow up with your primary care provider in 2-3 days *Return to ER if you should have worsening weakness, worsening confusion or any new, worsening or concerning symptoms Prescriptions: No Action Lantus U-100 Insulin 100 unit/mL Solution 30 unit SUBCUT DAILY RF: 0 tiotropium bromide 18 mcg Capsule, W/Inhalation Device 1 cap INHALATION DAILY RF: 0 venlafaxine 37.5 mg capsule,extended release 24hr 37.5 mg PO DAILY RF: 0 carvedilol 12.5 mg tablet 12.5 mg PO BID RF: 0 melatonin 3 mg Tablet 3 mg PO BEDTIME PRN (Reason: Insomnia) RF: 0 telmisartan 40 mg tablet 40 mg PO DAILY RF: 0 ferrous sulfate 325 mg (65 mg iron) Tablet 325 mg PO DAILY RF: 0 mupirocin calcium 2 % Cream 1 applic TOPICAL TID RF: 0 albuterol sulfate [ProAir HFA] 90 mcg/actuation Hfa Aerosol Inhaler 2 puff INHALATION Q4H PRN (Reason: Wheezing) RF: 0 clotrimazole 1 % Cream 1 applic TOPICAL DIRECTED RF: 0 Referrals: María Esteban [Primary Care Provider] -
--- NOTE | 2020-08-01 15:19 | DI.RAD.S_ITS ---
PROCEDURE: XR CHEST 1V INDICATIONS: weakness TECHNIQUE: One view of the chest was acquired. COMPARISON: [facility], CR, XR CHEST 2V, 11/23/2019, 13:19. FINDINGS: Surgical changes and devices: None. Lungs and pleura: Lungs are abnormal with mild interstitial prominence but improved from the comparison from November 2019. . No pleural effusions or pneumothorax. Mediastinum: Mediastinal contours appear normal. Heart size is normal. Bones and chest wall: No suspicious bony lesions. Overlying soft tissues appear unremarkable. IMPRESSION: Chronic mild interstitial prominence but improved from 11/23/19. No pneumonia found. Heart size within normal limits. Dictated by: Mekhi Loco M.D. on 08/01/2020 at 15:41 Approved by: Mekhi Loco M.D. on 08/01/2020 at 15:42
[2020-08-01 15:28] LABS: Add Manual Diff / Slide Review NO; Basophils Absolute Auto 100 /uL (0-100); Eosinophils Absolute Auto 500 /uL (0-450); Eosinophils Percent Auto 5.8 % (2-4); Hematocrit 35.2 % (41-53); Hemoglobin 11.9 g/dL (13.5-17.5); Lymphocytes Absolute Auto 900 /uL (1100-4500); Lymphocytes Percent Auto 10.3 % (25-40); Mean Corpuscular HGB Conc 33.7 % (30-36); Mean Corpuscular Hemoglobin 30.7 PG (26-34); Mean Corpuscular Volume 90.9 fL (80-100); Monocytes Absolute Auto 1100 /uL (0-900); Monocytes Percent Auto 12.7 % (3-14); Neutrophils Absolute Auto 6300 /uL (1500-7000); Neutrophils Percent Auto 70.2 % (50-75); Platelet Count 347 X10^3/uL (150-400); Red Blood Cell Count 3.88 X10^6/uL (4.5-5.9); Red Cell Distribution Width 13.8 % (11.6-14.8); White Blood Cell Count 8.9 X10^3/uL (4.5-11.0)
[2020-08-01 15:34] LABS: Alanine Aminotransferase 19 IU/L (<50); Albumin 3.7 g/dL (3.5-5.0); Alkaline Phosphatase 91 U/L (38-126); Aspartate Aminotransferase 23 IU/L (17-59); BUN Creatinine Ratio 42.6 (6-22); Bilirubin Total 0.4 mg/dL (0.2-1.3); Blood Urea Nitrogen 83 mg/dL (9-20); Calcium 8.5 mg/dL (8.4-10.2); Carbon Dioxide 26 mmol/L (22-32); Chloride 101 mmol/L (98-107); Creatine Kinase 45 U/L (55-170); Estimated Glomerular Filt Rate 32.9 mL/min (>60); Globulin 3.6 g/dL (1.7-4.1); Glucose 102 mg/dL (80-110); HEMOLYSIS < 15 (0-50); Lactate (Lactic Acid) 1.6 mmol/L (0.7-2.1); Sodium 136 mmol/L (137-145); Total Protein 7.3 g/dL (6.3-8.2)
[2020-08-01 15:42] LABS: NT-proBNP (BNP-Adult 18+) 3860 pg/mL (<450)
[2020-08-01 15:46] LABS: Troponin I 0.017 ng/mL (0.01-0.034)
[2020-08-01 15:54] LABS: Procalcitonin 0.05 ng/mL (<0.5)
[2020-08-01 17:54] LABS: Fractionated Inspired Oxygen 0.21; HCO3 ABG 24 mmol/L (22-26); Oxygen Saturation ABG 95 % (95-100); PCO2 ABG 35.5 mmHg (35-45); PO2 ABG 75 mmHg (80-100); TCO2 ABG 25 mmol/L (21-31); pH ABG 7.43 (7.35-7.45)
[2020-08-01 19:00] LABS: COVID19 -Nasal RAPID Negative (Negative)
== END 2020-08-01 19:50 | disposition home or self-care (01) ==
PROVIDERS: Emergency Provider Emergency Medicine; PCP Internal Medicine
DX: R53.1 Weakness (principal); R79.89 Other specified abnormal findings of blood chemistry; E11.9 Type 2 diabetes mellitus without complications; I50.9 Heart failure, unspecified; E78.5 Hyperlipidemia, unspecified
CPT/HCPCS: 36415; 36600; 71045; 80053; 81003; 82550; 82805; 83605; 83880; 84145; 84484; 85025; 87040; 87635; 93005; 99283; 99284

== ENCOUNTER → 2020-08-07 13:27 | Outpatient (CLI) | payer MEDICARE, OTHER, SELFPAY ==
[2019-11-23 17:48] VITALS: BMI 32.1
== END ==
PROVIDERS: PCP Internal Medicine; Referring Provider Internal Medicine; Visit Provider Family Medicine
DX: L12.0 Bullous pemphigoid (principal); S31.819A Unspecified open wound of right buttock, initial encounter
CPT/HCPCS: 99213

== ENCOUNTER → 2020-08-16 11:21 | Outpatient (CLI) | payer MEDICARE, OTHER, SELFPAY ==
[2019-11-23 17:48] VITALS: BMI 32.1
[2020-08-16 12:16] LABS: Add Manual Diff / Slide Review NO; Basophils Absolute Auto 0 /uL (0-100); Basophils Percent Auto 0.5 % (0-2); Eosinophils Absolute Auto 300 /uL (0-450); Eosinophils Percent Auto 3.5 % (2-4); Hematocrit 33.4 % (41-53); Hemoglobin 11.2 g/dL (13.5-17.5); Lymphocytes Absolute Auto 1200 /uL (1100-4500); Lymphocytes Percent Auto 14.2 % (25-40); Mean Corpuscular HGB Conc 33.6 % (30-36); Mean Corpuscular Hemoglobin 30.6 PG (26-34); Mean Corpuscular Volume 91.1 fL (80-100); Monocytes Absolute Auto 800 /uL (0-900); Monocytes Percent Auto 8.8 % (3-14); Neutrophils Absolute Auto 6300 /uL (1500-7000); Platelet Count 274 X10^3/uL (150-400); Red Blood Cell Count 3.67 X10^6/uL (4.5-5.9); Red Cell Distribution Width 13.6 % (11.6-14.8); White Blood Cell Count 8.6 X10^3/uL (4.5-11.0)
[2020-08-16 13:25] LABS: Alanine Aminotransferase 32 IU/L (<50); Albumin 3.6 g/dL (3.5-5.0); Albumin Globulin Ratio 1.1 (1.0-2.8); Alkaline Phosphatase 93 U/L (38-126); Aspartate Aminotransferase 31 IU/L (17-59); BUN Creatinine Ratio 45.7 (6-22); Bilirubin Total 0.4 mg/dL (0.2-1.3); Blood Urea Nitrogen 85 mg/dL (9-20); Calcium 8.7 mg/dL (8.4-10.2); Carbon Dioxide 22 mmol/L (22-32); Chloride 101 mmol/L (98-107); Estimated Glomerular Filt Rate 34.8 mL/min (>60); Globulin 3.2 g/dL (1.7-4.1); Glucose 107 mg/dL (80-110); HEMOLYSIS < 15 (0-50); Sodium 133 mmol/L (137-145); Total Protein 6.8 g/dL (6.3-8.2)
[2020-08-16 13:34] LABS: Potassium 5.8 mmol/L (3.4-5.1)
== END ==
PROVIDERS: PCP Internal Medicine; Referring Provider Dermatology; Visit Provider Dermatology
DX: Z79.899 Other long term (current) drug therapy (principal)
CPT/HCPCS: 36415; 80053; 85025

== ENCOUNTER → 2020-09-05 13:21 | Outpatient (CLI) | payer MEDICARE, OTHER, SELFPAY ==
[2019-11-23 17:48] VITALS: BMI 32.1
== END ==
PROVIDERS: PCP Internal Medicine; Referring Provider Internal Medicine; Visit Provider Family Medicine
DX: L12.0 Bullous pemphigoid (principal); S31.819A Unspecified open wound of right buttock, initial encounter
CPT/HCPCS: 99213

== ENCOUNTER → 2020-09-05 14:09 | Outpatient (CLI) | payer MEDICARE, OTHER, SELFPAY ==
[2019-11-23 17:48] VITALS: BMI 32.1
[2020-09-05 15:26] LABS: Add Manual Diff / Slide Review NO; Basophils Absolute Auto 0 /uL (0-100); Basophils Percent Auto 0.5 % (0-2); Eosinophils Absolute Auto 300 /uL (0-450); Eosinophils Percent Auto 3.5 % (2-4); Hematocrit 32.5 % (41-53); Hemoglobin 10.7 g/dL (13.5-17.5); Lymphocytes Absolute Auto 1200 /uL (1100-4500); Lymphocytes Percent Auto 14.8 % (25-40); Mean Corpuscular Hemoglobin 30.9 PG (26-34); Mean Corpuscular Volume 93.5 fL (80-100); Monocytes Absolute Auto 700 /uL (0-900); Monocytes Percent Auto 8.2 % (3-14); Neutrophils Absolute Auto 6000 /uL (1500-7000); Platelet Count 289 X10^3/uL (150-400); Red Blood Cell Count 3.48 X10^6/uL (4.5-5.9); Red Cell Distribution Width 14.9 % (11.6-14.8); White Blood Cell Count 8.3 X10^3/uL (4.5-11.0)
[2020-09-05 15:45] LABS: Alanine Aminotransferase 24 IU/L (<50); Albumin 3.6 g/dL (3.5-5.0); Albumin Globulin Ratio 1.2 (1.0-2.8); Alkaline Phosphatase 82 U/L (38-126); Aspartate Aminotransferase 26 IU/L (17-59); BUN Creatinine Ratio 44.5 (6-22); Bilirubin Total 0.2 mg/dL (0.2-1.3); Blood Urea Nitrogen 77 mg/dL (9-20); Calcium 8.7 mg/dL (8.4-10.2); Carbon Dioxide 19 mmol/L (22-32); Chloride 108 mmol/L (98-107); Estimated Glomerular Filt Rate 37.8 mL/min (>60); Globulin 2.9 g/dL (1.7-4.1); Glucose 116 mg/dL (80-110); HEMOLYSIS < 15 (0-50); Potassium 5.3 mmol/L (3.4-5.1); Sodium 135 mmol/L (137-145); Total Protein 6.5 g/dL (6.3-8.2)
== END ==
PROVIDERS: PCP Internal Medicine; Referring Provider Dermatology; Visit Provider Dermatology
DX: Z79.899 Other long term (current) drug therapy (principal)
CPT/HCPCS: 36415; 80053; 85025

== ENCOUNTER → 2020-09-11 13:38 | Outpatient (CLI) | payer MEDICARE, OTHER, SELFPAY ==
[2019-11-23 17:48] VITALS: BMI 32.1
--- NOTE | 2020-09-11 | DI.ECHO.S_ITS ---
[facility]---------+ [facility] +---------+ : : [address] : : : : [id number] : : : : Phone: [phone] Echocardiogram Report + + :Name: JEREMY LAM Study Date: 09/11/2020 Height: 67 in : :[facility] Weight: 203 lb : : Gender: Male BSA: 2.0 m2 : :: 1935 Age: 85 yrs BP: 146/72 mmHg: :Reason For Study: SYSTOLIC HEART FAILURE : :Ordering Physician: IVETTE, : :DOMENICO Performed By: Pita Salcedo : :Referring: DOMENICO TRISTAN : + + Interpretation Summary 1) Borderline enlarged left ventricle with moderately reduced systolic function (EF 35-40%). 2) Basal to mid anterolateral wall extending to the inferolateral wall are severely hypokinetic. Anterior wall is moderately hypokinetic. 3) Normal right ventricular size and function. 4) There is mild to moderate mitral regurgitation. 5) Compared to the Echo done 11/24/2019, pleural effusion has resolved on this study. Procedure: A two-dimensional transthoracic echocardiogram with color flow and Doppler was performed. The study quality was technically adequate. Comparison is made with the echocardiogram of 11/24/2019. The patient was in sinus rhythm with heart rates between 63-71 bpm during the exam. Left Ventricle: The estimated left ventricular end diastolic volume is 148 ml. The left ventricle is borderline dilated. There is normal left ventricular wall thickness. The ejection fraction is estimated to be 35-40%. Basal to mid anterolateral wall extending to the inferolateral wall are severely hypokinetic. Anterior wall is moderately hypokinetic. Right Ventricle: The right ventricle is normal in size and function. Atria: The left atrium is mildly dilated. Right atrial size is normal. There is no Doppler evidence for an interatrial shunt. Mitral Valve: There is mild mitral annular calcification. The mitral valve is normal in structure and function. There is mild to moderate mitral regurgitation. Aortic Valve: The aortic valve is trileaflet. There is discrete nodular thickening of the left coronary cusp. There is no aortic valve stenosis. There is trace aortic regurgitation. Tricuspid Valve: The tricuspid valve is normal in structure and function. There is trace tricuspid regurgitation. Pulmonic Valve: The pulmonic valve is not well visualized. There is no pulmonic valvular regurgitation. Great Vessels: The aortic root is normal size. The dimensions of the ascending aorta are normal. The IVC is of normal diameter and collapses greater than 50% with a sniff. This suggests a low right atrial pressure of 3 mm Hg. Pericardium/ Pleura There is no pericardial effusion. There is no pleural effusion. MMode/2D Measurements & Calculations LVIDd: 6.2 cm LVOT diam: 2.0 cm LVIDs: 5.0 cm Ao root diam: 3.4 cm FS: 19.4 % asc Aorta Diam: 3.3 cm EPSS: 1.6 cm Ao Arch Diam (Prox Trans): 2.6 cm IVSd: 0.87 cm LVPWd: 0.86 cm LV guzman. diameter/BSA (cm/m^2): 3.1 LV sys. diameter/BSA (cm/m^2): 2.5 LA A2 area: 24.5 cm2 RA long axis: 4.3 cm LA A4 area: 19.1 cm2 RA area: 15.1 cm2 LA length (vol): 4.9 cm RA vol: 44.8 ml LA vol: 80.8 ml RA : 22.0 ml/m2 LA vol index: 39.7 ml/m2 IVC diam: 0.68 cm RVD1 (basal): 3.4 cm TAPSE: 1.7 cm Doppler Measurements & Calculations Ao V2 max: 145.9 cm/sec LVOT Max Jacky: 89.8 cm/sec Ao V2 mean: 104.5 cm/sec LV V1 max P.2 mmHg Ao max P.5 mmHg LV V1 VTI: 18.9 cm Ao mean P.0 mmHg ALBIN(I,D): 2.1 cm2 Ao V2 VTI: 28.6 cm ALBIN(V,D): 2.0 cm2 sev ratio: 0.66 ALBIN indexed to BSA (cm^2/m^2): 1.0 MV E max jacky: 58.4 cm/sec TR max jacky: 190.2 cm/sec MV A max jacky: 108.0 cm/sec TR max P.5 mmHg MV E/A: 0.54 PA V2 max: 91.3 cm/sec Med Peak E' Jacky: 3.9 cm/sec PA V2 mean: 58.5 cm/sec E/E' med: 15.2 PA mean P.6 mmHg Lat Peak E' Jacky: 5.5 cm/sec PA pr(Accel): 12.2 mmHg E/E' lat: 10.6 E/e' average: 12.9 MV dec time: 0.22 sec SV(OT): 60.7 ml Reading Physician:03:10 PM
[2020-09-11 15:12] LABS: Add Manual Diff / Slide Review NO; Basophils Absolute Auto 100 /uL (0-100); Basophils Percent Auto 0.7 % (0-2); Eosinophils Absolute Auto 300 /uL (0-450); Eosinophils Percent Auto 3.9 % (2-4); Hematocrit 33.2 % (41-53); Hemoglobin 10.9 g/dL (13.5-17.5); Lymphocytes Absolute Auto 1200 /uL (1100-4500); Lymphocytes Percent Auto 14.7 % (25-40); Mean Corpuscular HGB Conc 32.9 % (30-36); Mean Corpuscular Hemoglobin 30.8 PG (26-34); Mean Corpuscular Volume 93.6 fL (80-100); Monocytes Absolute Auto 600 /uL (0-900); Monocytes Percent Auto 7.3 % (3-14); Neutrophils Absolute Auto 6000 /uL (1500-7000); Neutrophils Percent Auto 73.4 % (50-75); Platelet Count 290 X10^3/uL (150-400); Red Blood Cell Count 3.55 X10^6/uL (4.5-5.9); Red Cell Distribution Width 14.7 % (11.6-14.8); White Blood Cell Count 8.2 X10^3/uL (4.5-11.0)
[2020-09-11 15:44] LABS: Blood Urea Nitrogen 77 mg/dL (9-20); Calcium 8.7 mg/dL (8.4-10.2); Carbon Dioxide 22 mmol/L (22-32); Chloride 106 mmol/L (98-107); Cholesterol 140 mg/dL (140-199); Estimated Glomerular Filt Rate 37.3 mL/min (>60); Glucose 126 mg/dL (80-110); HDL Cholesterol 36 mg/dL (40-60); HEMOLYSIS < 15 (0-50); LDL Cholesterol Calculated 78 mg/dL (<100); Potassium 5.1 mmol/L (3.4-5.1); Sodium 134 mmol/L (137-145); Triglycerides 130 mg/dL (35-150)
== END ==
PROVIDERS: PCP Internal Medicine; Referring Provider Internal Medicine Cardiovascular Disease; Visit Provider Internal Medicine Cardiovascular Disease
DX: I34.0 Nonrheumatic mitral (valve) insufficiency (principal); I50.22 Chronic systolic (congestive) heart failure; I48.0 Paroxysmal atrial fibrillation
CPT/HCPCS: 36415; 80048; 80061; 85025; 93306

== ENCOUNTER → 2020-09-25 14:04 | Outpatient (CLI) | payer MEDICARE, OTHER, SELFPAY ==
[2019-11-23 17:48] VITALS: BMI 32.1
[2020-09-25 14:25] LABS: Add Manual Diff / Slide Review NO; Basophils Absolute Auto 100 /uL (0-100); Basophils Percent Auto 0.8 % (0-2); Eosinophils Absolute Auto 300 /uL (0-450); Eosinophils Percent Auto 4.1 % (2-4); Hematocrit 36.1 % (41-53); Hemoglobin 11.6 g/dL (13.5-17.5); Lymphocytes Absolute Auto 1400 /uL (1100-4500); Lymphocytes Percent Auto 16.6 % (25-40); Mean Corpuscular HGB Conc 32.1 % (30-36); Mean Corpuscular Volume 93.7 fL (80-100); Monocytes Absolute Auto 700 /uL (0-900); Monocytes Percent Auto 8.1 % (3-14); Neutrophils Absolute Auto 6000 /uL (1500-7000); Neutrophils Percent Auto 70.4 % (50-75); Platelet Count 272 X10^3/uL (150-400); Red Blood Cell Count 3.86 X10^6/uL (4.5-5.9); Red Cell Distribution Width 14.5 % (11.6-14.8); White Blood Cell Count 8.5 X10^3/uL (4.5-11.0)
[2020-09-25 14:56] LABS: Alanine Aminotransferase 23 IU/L (<50); Albumin 3.9 g/dL (3.5-5.0); Albumin Globulin Ratio 1.3 (1.0-2.8); Alkaline Phosphatase 86 U/L (38-126); Aspartate Aminotransferase 27 IU/L (17-59); BUN Creatinine Ratio 46.4 (6-22); Bilirubin Total 0.4 mg/dL (0.2-1.3); Blood Urea Nitrogen 85 mg/dL (9-20); Calcium 8.7 mg/dL (8.4-10.2); Carbon Dioxide 21 mmol/L (22-32); Chloride 106 mmol/L (98-107); Estimated Glomerular Filt Rate 35.4 mL/min (>60); Glucose 124 mg/dL (80-110); HEMOLYSIS < 15 (0-50); Potassium 5.1 mmol/L (3.4-5.1); Sodium 136 mmol/L (137-145); Total Protein 6.9 g/dL (6.3-8.2)
== END ==
PROVIDERS: PCP Internal Medicine; Referring Provider Dermatology; Visit Provider Dermatology
DX: Z79.899 Other long term (current) drug therapy (principal)
CPT/HCPCS: 36415; 80053; 85025

== ENCOUNTER → 2020-09-25 14:31 | Outpatient (CLI) | payer MEDICARE, OTHER, SELFPAY ==
[2019-11-23 17:48] VITALS: BMI 32.1
== END ==
PROVIDERS: PCP Internal Medicine; Referring Provider Internal Medicine; Visit Provider Family Medicine
DX: L97.511 Non-pressure chronic ulcer of other part of right foot limited to breakdown of skin (principal); E11.621 Type 2 diabetes mellitus with foot ulcer; M86.671 Other chronic osteomyelitis, right ankle and foot; I70.235 Atherosclerosis of native arteries of right leg with ulceration of other part of foot; Z79.4 Long term (current) use of insulin; E11.40 Type 2 diabetes mellitus with diabetic neuropathy, unspecified; N18.30 Chronic kidney disease, stage 3 unspecified; R14.0 Abdominal distension (gaseous)
CPT/HCPCS: 97597; 99212

== ENCOUNTER → 2021-01-02 14:58 | Outpatient (CLI) | payer MEDICARE, OTHER, SELFPAY ==
[2019-11-23 17:48] VITALS: BMI 32.1
[2021-01-02 16:08] LABS: Add Manual Diff / Slide Review NO; Basophils Absolute Auto 100 /uL (0-100); Basophils Percent Auto 1.1 % (0-2); Eosinophils Absolute Auto 300 /uL (0-450); Eosinophils Percent Auto 2.8 % (2-4); Hematocrit 36.9 % (41-53); Hemoglobin 12.1 g/dL (13.5-17.5); Lymphocytes Absolute Auto 1300 /uL (1100-4500); Lymphocytes Percent Auto 12.5 % (25-40); Mean Corpuscular HGB Conc 32.8 % (30-36); Mean Corpuscular Volume 94.6 fL (80-100); Monocytes Absolute Auto 700 /uL (0-900); Monocytes Percent Auto 7.2 % (3-14); Neutrophils Absolute Auto 7800 /uL (1500-7000); Neutrophils Percent Auto 76.4 % (50-75); Platelet Count 280 X10^3/uL (150-400); Red Cell Distribution Width 17.4 % (11.6-14.8); White Blood Cell Count 10.1 X10^3/uL (4.5-11.0)
[2021-01-02 19:53] LABS: Alanine Aminotransferase 18 IU/L (<50); Albumin Globulin Ratio 1.2 (1.0-2.8); Alkaline Phosphatase 98 U/L (38-126); Aspartate Aminotransferase 30 IU/L (17-59); BUN Creatinine Ratio 28.6 (6-22); Bilirubin Total 0.2 mg/dL (0.2-1.3); Blood Urea Nitrogen 56 mg/dL (9-20); Calcium 8.7 mg/dL (8.4-10.2); Carbon Dioxide 26 mmol/L (22-32); Chloride 104 mmol/L (98-107); Estimated Glomerular Filt Rate 32.7 mL/min (>60); Globulin 3.3 g/dL (1.7-4.1); Glucose 143 mg/dL (80-110); HEMOLYSIS < 15 (0-50); Potassium 4.7 mmol/L (3.4-5.1); Sodium 138 mmol/L (137-145); Total Protein 7.3 g/dL (6.3-8.2)
== END ==
PROVIDERS: PCP Internal Medicine; Referring Provider Dermatology; Visit Provider Dermatology
DX: Z79.899 Other long term (current) drug therapy (principal); L12.0 Bullous pemphigoid
CPT/HCPCS: 36415; 80053; 85025

== ENCOUNTER → 2021-02-19 14:35 | Outpatient (CLI) | payer MEDICARE, OTHER, SELFPAY ==
[2019-11-23 17:48] VITALS: BMI 32.1
[2021-02-19 15:02] LABS: Add Manual Diff / Slide Review NO; Basophils Absolute Auto 100 /uL (0-100); Basophils Percent Auto 0.7 % (0-2); Eosinophils Absolute Auto 200 /uL (0-450); Hematocrit 34.4 % (41-53); Hemoglobin 11.2 g/dL (13.5-17.5); Lymphocytes Absolute Auto 1300 /uL (1100-4500); Lymphocytes Percent Auto 16.2 % (25-40); Mean Corpuscular HGB Conc 32.5 % (30-36); Mean Corpuscular Hemoglobin 31.3 PG (26-34); Mean Corpuscular Volume 96.3 fL (80-100); Monocytes Absolute Auto 400 /uL (0-900); Monocytes Percent Auto 5.3 % (3-14); Neutrophils Absolute Auto 6000 /uL (1500-7000); Neutrophils Percent Auto 74.8 % (50-75); Platelet Count 259 X10^3/uL (150-400); Red Blood Cell Count 3.57 X10^6/uL (4.5-5.9); Red Cell Distribution Width 16.3 % (11.6-14.8)
[2021-02-19 15:14] LABS: Albumin 3.9 g/dL (3.5-5.0); BUN Creatinine Ratio 32.2 (6-22); Blood Urea Nitrogen 65 mg/dL (9-20); Calcium 8.7 mg/dL (8.4-10.2); Carbon Dioxide 22 mmol/L (22-32); Chloride 105 mmol/L (98-107); Estimated Glomerular Filt Rate 31.5 mL/min (>60); Glucose 204 mg/dL (80-110); HEMOLYSIS < 15 (0-50); Phosphorous 4.5 mg/dL (2.3-3.7); Potassium 4.9 mmol/L (3.4-5.1); Sodium 136 mmol/L (137-145)
[2021-02-19 16:36] LABS: Vitamin D 25 Hydroxy (D3) 50.5 ng/mL (30.0-100.0)
[2021-02-20 12:09] LABS: Parathyroid Hormone Int 123 pg/mL (15-65)
== END ==
PROVIDERS: PCP Internal Medicine; Referring Provider Internal Medicine Nephrology; Visit Provider Internal Medicine Nephrology
DX: N18.30 Chronic kidney disease, stage 3 unspecified (principal)
CPT/HCPCS: 36415; 80069; 82306; 83970; 85025

== ENCOUNTER 2021-04-14 14:43 | Emergency (ER) | payer MEDICARE, OTHER, SELFPAY ==
[2019-11-23 17:48] VITALS: BMI 32.1
[2021-04-14] VITALS (9 sets, daily range): BP systolic 136–177; BP diastolic 65–81; PULSE 55–59; RESP 18; TEMP 36.3; O2SAT 96–99; BMI 29.2
--- NOTE | 2021-04-14 14:57 | ED_ITS ---
HPI - General Adult General Chief complaint: Altered Mental Status Stated complaint: Lethargy/Low blood sugar Time Seen by Provider: 04/14/21 14:56 Source: patient and EMS Mode of arrival: EMS Limitations: other (Dementia) History of Present Illness HPI narrative: Patient is an 86-year-old male who was brought to this emergency department for concerns of altered mental status and low blood sugar. Per report the patient does have a history of dementia. He is also an insulin- dependent diabetic. The from the nursing facility where the patient lives his appetite has been decreasing recently especially after he was started on an antibiotic for a wound in his right arm. He has been given his normal dose of insulin and apparently earlier today became hypoglycemic. Reports were his blood sugars were in the 60s. He did eat something at the facility but they thought that he was remaining altered for longer than what they thought. There is also reports that he was hypotensive . Here in the emergency department the patient is alert to person and place. His somewhat confused as to why he is here but when I told him that it was because his blood sugar was low he said ?yes they told me that ?. He has no complaints. Related Data Home Medications Medication Instructions Recorded Confirmed Lantus U-100 Insulin 30 unit SUBCUT DAILY 11/23/19 11/23/19 albuterol sulfate [ProAir HFA] 2 puff INHALATION Q4H PRN 11/23/19 11/23/19 carvedilol 12.5 mg PO BID 11/23/19 11/23/19 clotrimazole 1 applic TOPICAL DIRECTED 11/23/19 11/23/19 ferrous sulfate 325 mg PO DAILY 11/23/19 11/23/19 melatonin 3 mg PO BEDTIME PRN 11/23/19 11/23/19 mupirocin calcium 1 applic TOPICAL TID 11/23/19 11/23/19 telmisartan 40 mg PO DAILY 11/23/19 11/23/19 tiotropium bromide 1 cap INHALATION DAILY 11/23/19 11/23/19 venlafaxine 37.5 mg PO DAILY 11/23/19 11/23/19 Allergies Allergy/AdvReac Type Severity Reaction Status Date / Time No Known Drug Allergies Allergy Verified 11/23/19 18:42 Review of Systems Constitutional Constitutional: Denies headache(s) ENT Ears, Nose, Mouth, and Throat: Denies headache(s) Cardiovascular Cardiovascular: Denies chest pain and Reports dyspnea (Occasional but not at the time of my exam) Respiratory Respiratory: Reports dyspnea (Occasional but not at the time of my exam) Gastrointestinal Gastrointestinal: Denies vomiting Musculoskeletal Comments: No specific joint or muscle pain Neurologic Neurologic: Reports confusion (Per facility staff patient denies this) and Denies headache(s) Psychiatric Psychiatric: Reports confusion (Per facility staff patient denies this) Hematologic/Lymphatic On Anticoagulants: No Allergic/Immunologic Allergic/Immunologic: Reports system reviewed and no additional complaints, except as documented Patient History Medical History (Updated 04/14/21 @ 17:17 by Victor M Fierro DO) Age related osteoporosis Alzheimer's dementia Arthritis of right hip Cataract Congestive heart failure (CHF) COPD (chronic obstructive pulmonary disease) Diabetes type 2, controlled Hard of hearing Hyperlipemia Hypertension Umbilical hernia Social History household members: family Smoking Status: Former smoker alcohol intake: current Smoking Status: Former smoker alcohol intake frequency: a few times a month Substance Use Type: marijuana Exam Initial Vital Signs Initial Vital Signs: Vital Signs Temperature 97.4 F L 04/14/21 15:00 Pulse Rate 58 L 04/14/21 15:00 Respiratory Rate 18 04/14/21 15:00 Blood Pressure 150/65 H 04/14/21 15:00 Pulse Oximetry 99 04/14/21 15:00 Const General: cooperative and comfortable Other: Somewhat confused HENMT Head: normal to inspection and normocephalic Resp Effort & Inspection: normal respiratory effort Auscultation: clear to auscultation bilaterally Cardio Rate: regular rate Rhythm: regular rhythm GI Inspection: non-distended Palpation: soft Neuro General: patient alert, patient awake and oriented (Person, date,) Extrem General: capillary refill normal and No edema Psych Appearance: grossly normal and well kempt Scores GCS Beverly coma scale eye opening: Spontaneous Beverly coma scale verbal response: Confused Emm[place] coma scale motor response: Obey commands Emm[place] coma scale total score: 14 Course Orders Ordered: ED Orders 04/14/21 15:05 Basic Metabolic Panel Stat Complete Blood Count AUTO DIFF Stat Discontinued Medications Sodium Chloride (Normal Saline 0.9%) 1,000 mls @ 500 mls/hr IV BOLUS ONE Stop: 04/14/21 17:36 Last Infusion: 04/14/21 18:04 Dose: 0 mls/hr Documented by: Admin: 04/14/21 16:18 Dose: 500 mls/hr Documented by: GISEL Vital Signs Vital signs: Vital Signs - 8 hr 04/14/21 15:00 04/14/21 15:09 04/14/21 15:30 Temperature 97.4 F L Pulse Rate 58 L 57 L 59 L Respiratory Rate 18 Blood Pressure 150/65 H 136/71 Pulse Oximetry 99 98 96 04/14/21 16:00 04/14/21 16:30 04/14/21 17:00 Temperature Pulse Rate 57 L 56 L 55 L Respiratory Rate Blood Pressure 137/67 142/74 H 165/74 H Pulse Oximetry 97 98 97 04/14/21 17:30 04/14/21 18:00 04/14/21 18:01 Temperature Pulse Rate 56 L 55 L 55 L Respiratory Rate Blood Pressure 173/79 H 177/81 H Pulse Oximetry 99 99 99 Medical Decision Making Lab Data Lab results reviewed: Yes I reviewed the patient's lab results. Result diagrams: 04/14/21 15:05 04/14/21 15:05 Labs: Lab Results 04/14/21 04/14/21 Range/Units 15:05 15:05 WBC 9.1 (4.5-11.0) X10^3/uL RBC 3.91 L (4.5-5.9) X10^6/uL Hgb 12.6 L (13.5-17.5) g/dL Hct 37.9 L (41-53) % MCV 97.0 (80-100) fL MCH 32.2 (26-34) PG MCHC 33.2 (30-36) % RDW 16.0 H (11.6-14.8) % Plt Count 235 (150-400) X10^3/uL Neut % (Auto) 85.2 H (50-75) % Lymph % (Auto) 8.8 L (25-40) % Edwards % (Auto) 3.6 (3-14) % Eos % (Auto) 1.8 L (2-4) % Baso % (Auto) 0.6 (0-2) % Neut # (Auto) 7800 H (4186-3830) /uL Lymph # (Auto) 800 L (0432-6039) /uL Edwards # (Auto) 300 (0-900) /uL Eos # (Auto) 200 (0-450) /uL Baso # (Auto) 100 (0-100) /uL Sodium 137 (137-145) mmol/L Potassium 4.6 (3.4-5.1) mmol/L Chloride 110 H (98-107) mmol/L Carbon Dioxide 16 L (22-32) mmol/L BUN 99 H (9-20) mg/dL Creatinine 2.20 H (0.66-1.25) mg/dL Estimated GFR 28.6 L (>60) mL/min BUN/Creatinine Ratio 45.0 H (6-22) Glucose 199 H (80-110) mg/dL Calcium 8.4 (8.4-10.2) mg/dL Point of Care Testing Glucose POC 208 Point of care testing: Point of Care Testing Glucose POC 208 MDM Narrative Medical decision making narrative: Patient's blood sugar was around 200 upon arrival here to the ER. Nursing staff talk with his family from out of state and described his mentation here in the stated that that seems to be normal for him. There was no other indication of any infection. Low suspicion for TIA/CVA. I do suspect that his blood sugar was low most likely because he has not been eating and still getting his normal dose of insulin. Patient can be discharged home without further workup as I do believe this is a blood sugar issue. He has maintained his blood sugar since being here. Written return precautions were given. Discharge Plan Departure Patient Disposition: Home Clinical Impression: Hypoglycemia Instructions: DI for Hypoglycemia Activity Restrictions/Additional Instructions: I do recommend he continue all of his medications as directed. If he continues to have decreased oral intake of food I recommend contacting his primary provider to discuss potential changes to his insulin regiment. He can return to the emergency department at any point for new or worsening symptoms Prescriptions: No Action Lantus U-100 Insulin 100 unit/mL Solution 30 unit SUBCUT DAILY RF: 0 tiotropium bromide 18 mcg Capsule, W/Inhalation Device 1 cap INHALATION DAILY RF: 0 venlafaxine 37.5 mg capsule,extended release 24hr 37.5 mg PO DAILY RF: 0 carvedilol 12.5 mg tablet 12.5 mg PO BID RF: 0 melatonin 3 mg Tablet 3 mg PO BEDTIME PRN (Reason: Insomnia) RF: 0 telmisartan 40 mg tablet 40 mg PO DAILY RF: 0 ferrous sulfate 325 mg (65 mg iron) Tablet 325 mg PO DAILY RF: 0 mupirocin calcium 2 % Cream 1 applic TOPICAL TID RF: 0 albuterol sulfate [ProAir HFA] 90 mcg/actuation Hfa Aerosol Inhaler 2 puff INHALATION Q4H PRN (Reason: Wheezing) RF: 0 clotrimazole 1 % Cream 1 applic TOPICAL DIRECTED RF: 0 Referrals: María Esteban MD [Primary Care Provider] -
--- NOTE | 2021-04-14 15:04 | PC.NURSE ---
Spoke to Alea, Caregiver at [facility] who reports that pt is baseline independent and has been skipping meals recently. Pt still rec'ing all medications by staff including Diabetic medications. Reports of lower blood sugar this afternoon 70-100 with altered mental status. pt was given juice and sandwich and 911 was called. The only change is pt started Minocycline recently for an infected sore on L arm. On assessment pt is awake alert and oriented. baseline dementia and [employer] [place]. Reports pain in L arm sore. open to air. BG 208, BP reported by facility as 88/53. BP 150/65 in triage. HR 58 SB. Eloquis for Afib h/o RBBB, CKD, HTN, DM. Per EMS pt ambulated to stretcher. 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 arrived with 22G R Hand saline locked. no meds given at facility or by EMS. denies CP/SOB, 98%RA. Resting in bed in NAD attached to cardiac monitoring. Lab in to draw.
[2021-04-14 15:16] LABS: Add Manual Diff / Slide Review NO; Basophils Absolute Auto 100 /uL (0-100); Basophils Percent Auto 0.6 % (0-2); Eosinophils Absolute Auto 200 /uL (0-450); Eosinophils Percent Auto 1.8 % (2-4); Hematocrit 37.9 % (41-53); Hemoglobin 12.6 g/dL (13.5-17.5); Lymphocytes Absolute Auto 800 /uL (1100-4500); Lymphocytes Percent Auto 8.8 % (25-40); Mean Corpuscular HGB Conc 33.2 % (30-36); Mean Corpuscular Hemoglobin 32.2 PG (26-34); Monocytes Absolute Auto 300 /uL (0-900); Monocytes Percent Auto 3.6 % (3-14); Neutrophils Absolute Auto 7800 /uL (1500-7000); Neutrophils Percent Auto 85.2 % (50-75); Platelet Count 235 X10^3/uL (150-400); Red Blood Cell Count 3.91 X10^6/uL (4.5-5.9); White Blood Cell Count 9.1 X10^3/uL (4.5-11.0)
[2021-04-14 15:30] LABS: Blood Urea Nitrogen 99 mg/dL (9-20); Calcium 8.4 mg/dL (8.4-10.2); Carbon Dioxide 16 mmol/L (22-32); Chloride 110 mmol/L (98-107); Estimated Glomerular Filt Rate 28.6 mL/min (>60); Glucose 199 mg/dL (80-110); HEMOLYSIS < 15 (0-50); Potassium 4.6 mmol/L (3.4-5.1); Sodium 137 mmol/L (137-145)
[2021-04-14] MEDS: SODIUM CHLORIDE 0.9% 1,000 ML 500 ML IV (16:18)
== END 2021-04-14 18:29 | disposition home or self-care (01) ==
PROVIDERS: Emergency Provider Emergency Medicine; PCP Internal Medicine
DX: E11.649 Type 2 diabetes mellitus with hypoglycemia without coma (principal); Z79.4 Long term (current) use of insulin; R06.00 Dyspnea, unspecified
CPT/HCPCS: 36415; 80048; 82962; 85025; 96360; 96361; 99283; 99284

== ENCOUNTER 2021-04-20 17:31 | Emergency (ER) | payer MEDICARE, OTHER, SELFPAY ==
[2019-11-23 17:48] VITALS: BMI 32.1
[2021-04-20] VITALS (12 sets, daily range): BP systolic 90–117; BP diastolic 50–59; PULSE 52–61; RESP 15–16; TEMP 35.7; O2SAT 97–100
[2021-04-20] MEDS: SODIUM CHLORIDE 0.9% 500 ML 1000 ML IV (17:35)
[2021-04-20 18:07] LABS: Add Manual Diff / Slide Review NO; Basophils Absolute Auto 100 /uL (0-100); Basophils Percent Auto 0.5 % (0-2); Eosinophils Absolute Auto 100 /uL (0-450); Eosinophils Percent Auto 0.4 % (2-4); Hematocrit 43.4 % (41-53); Lymphocytes Absolute Auto 1200 /uL (1100-4500); Lymphocytes Percent Auto 9.2 % (25-40); Mean Corpuscular HGB Conc 32.3 % (30-36); Mean Corpuscular Hemoglobin 31.6 PG (26-34); Mean Corpuscular Volume 97.8 fL (80-100); Monocytes Absolute Auto 700 /uL (0-900); Monocytes Percent Auto 4.9 % (3-14); Neutrophils Absolute Auto 11600 /uL (1500-7000); Platelet Count 133 X10^3/uL (150-400); Red Blood Cell Count 4.44 X10^6/uL (4.5-5.9); Red Cell Distribution Width 15.8 % (11.6-14.8); White Blood Cell Count 13.6 X10^3/uL (4.5-11.0)
--- NOTE | 2021-04-20 18:08 | ED.NAVMDI ---
HPI - Nausea/Vomiting/Diarrhea General Chief complaint: Nausea/Vomiting/Diarrhea Stated complaint: Hypotensive/diarrhea Time Seen by Provider: 04/20/21 17:36 Source: patient, family, EMS and old records reviewed Mode of arrival: EMS Limitations: altered mental status and physical limitation History of Present Illness HPI Narrative: Patient is an 86-year-old male history of dementia, diabetes, atrial fibrillation on Eliquis, COPD, congestive heart failure presenting with diarrhea for the last 2-3 days. He said initially it was bright red blood but it is no longer bloody. He has no abdominal pain, no chest pain dizziness or lightheadedness. He resides at assisted care facility. Initial blood pressure per EMS was 72/45 he was given 200 cc bolus and is now 90/50. DNR but limited intervention. He apparently has been on antibiotics for wound on his arm however I do not see antibiotic listed in his MAR. MD complaint: diarrhea Related Data Home Medications Medication Instructions Recorded Confirmed Lantus U-100 Insulin 30 unit SUBCUT DAILY 11/23/19 11/23/19 albuterol sulfate [ProAir HFA] 2 puff INHALATION Q4H PRN 11/23/19 11/23/19 carvedilol 12.5 mg PO BID 11/23/19 11/23/19 clotrimazole 1 applic TOPICAL DIRECTED 11/23/19 11/23/19 ferrous sulfate 325 mg PO DAILY 11/23/19 11/23/19 melatonin 3 mg PO BEDTIME PRN 11/23/19 11/23/19 mupirocin calcium 1 applic TOPICAL TID 11/23/19 11/23/19 telmisartan 40 mg PO DAILY 11/23/19 11/23/19 tiotropium bromide 1 cap INHALATION DAILY 11/23/19 11/23/19 venlafaxine 37.5 mg PO DAILY 11/23/19 11/23/19 Allergies Allergy/AdvReac Type Severity Reaction Status Date / Time No Known Drug Allergies Allergy Verified 11/23/19 18:42 Review of Systems Review of Systems ROS Unobtainable: All systems reviewed & are unremarkable except as noted in HPI and below Constitutional Constitutional: Denies chills, Denies fever(s), Denies lethargy and Denies weakness Eyes Eyes: Denies change in vision, Denies eye discharge, Denies irritation and Denies loss of vision Cardiovascular Cardiovascular: Denies dyspnea and Denies dyspnea on exertion Respiratory Respiratory: Denies cough, Denies dyspnea, Denies dyspnea on exertion and Denies wheezing Gastrointestinal Gastrointestinal: Reports as per HPI, Denies abdominal pain, Denies constipation, Reports diarrhea, Reports loose stools and Denies nausea Musculoskeletal Musculoskeletal: Reports back pain (mild low back pain) Integumentary/Breasts Skin/Breast: Denies pruritus, Denies erythema, Denies rash and Denies wounds Neurologic Neurologic: Denies loss of vision and Denies weakness Allergic/Immunologic Allergic/Immunologic: Denies wheezing Patient History Medical History (Updated 04/20/21 @ 21:30 by Sharee Kirkland DO) Age related osteoporosis Alzheimer's dementia Arthritis of right hip Cataract Congestive heart failure (CHF) COPD (chronic obstructive pulmonary disease) Diabetes type 2, controlled Hard of hearing Hyperlipemia Hypertension Umbilical hernia Social History household members: family Smoking Status: Former smoker alcohol intake: current Smoking Status: Former smoker alcohol intake frequency: a few times a month Substance Use Type: does not use and marijuana Exam Initial Vital Signs Initial Vital Signs: Vital Signs Temperature 96.2 F L 04/20/21 17:35 Pulse Rate 57 L 04/20/21 17:35 Respiratory Rate 16 04/20/21 17:35 Blood Pressure 90/50 L 04/20/21 17:35 Pulse Oximetry 98 04/20/21 17:35 GENERAL: Alert 86-year-old male and in no acute distress. HEENT: Head atraumatic,EOMI, pupils reactive, face symmetric, moist mucous membranes, no pale conjunctiva CARDIOVASCULAR: Regular rate and rhythm without murmurs, rubs or gallops. RESPIRATORY: Breath sounds equal bilaterally, no wheezes rales or rhonchi. ABDOMEN: Soft, reducible umbilical hernia nontender no guarding no rebound RECTAL: Hemoccult-negative, no hemorrhoids, nontender EXTREMITIES: Normal range of motion, no clubbing or edema. Neurovascularly intact NEUROLOGICAL: Alert and oriented x2. Cranial nerves II through XII grossly intact. 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) Stat Complete Blood Count AUTO DIFF Stat Comprehensive Metabolic Panel Stat Lactate (Lactic Acid) Stat Lipase Stat NT-proBNP (BNP-Adult 18+) Stat Procalcitonin Stat 04/20/21 18:44 XR chest 1V Stat 04/20/21 20:24 Arterial Blood Gas Stat 04/20/21 20:45 Venous Blood Gas Stat Discontinued Medications Sodium Chloride (Normal Saline 0.9%) 500 mls @ 1,000 mls/hr IV BOLUS ONE Stop: 04/20/21 19:23 Last Infusion: 04/20/21 18:56 Dose: 0 mls/hr Documented by: Admin: 04/20/21 17:35 Dose: 1,000 mls/hr Documented by: MARIAELENA Sodium Bicarbonate 100 meq/ (Dextrose) 1,100 mls @ 150 mls/hr IV CONT WILLARD Last Infusion: 04/20/21 22:08 Dose: 0 mls/hr Documented by: Admin: 04/20/21 21:24 Dose: 150 mls/hr Documented by: CASEY Vital Signs Vital signs: Vital Signs - 8 hr 04/20/21 17:35 04/20/21 18:00 04/20/21 18:30 Temperature 96.2 F L Pulse Rate 57 L 60 Respiratory Rate 16 Blood Pressure 90/50 L Pulse Oximetry 98 97 97 04/20/21 18:52 04/20/21 19:00 04/20/21 19:30 Temperature Pulse Rate 61 60 56 L Respiratory Rate Blood Pressure 99/55 L 97/54 L 98/53 L Pulse Oximetry 99 100 98 04/20/21 20:00 04/20/21 20:30 04/20/21 21:00 Temperature Pulse Rate 58 L 58 L 52 L Respiratory Rate Blood Pressure 112/58 L 117/59 L Pulse Oximetry 99 100 99 04/20/21 21:01 04/20/21 21:30 04/20/21 22:09 Temperature Pulse Rate 54 L 60 59 L Respiratory Rate 15 Blood Pressure 105/52 L 103/56 L 110/55 L Pulse Oximetry 99 99 97 MDM - Nausea/Vomiting/Diarrhea Lab Data Attestation: I reviewed the patient's lab results. Result diagrams: 04/20/21 17:45 04/20/21 17:45 Labs: Lab Results 04/20/21 04/20/21 04/20/21 Range/Units 17:45 17:45 17:45 WBC 13.6 H (4.5-11.0) X10^3/uL RBC 4.44 L (4.5-5.9) X10^6/uL Hgb 14.0 (13.5-17.5) g/dL Hct 43.4 (41-53) % MCV 97.8 (80-100) fL MCH 31.6 (26-34) PG MCHC 32.3 (30-36) % RDW 15.8 H (11.6-14.8) % Plt Count 133 L (150-400) X10^3/uL Neut % (Auto) 85.0 H (50-75) % Lymph % (Auto) 9.2 L (25-40) % Mckenzie % (Auto) 4.9 (3-14) % Eos % (Auto) 0.4 L (2-4) % Baso % (Auto) 0.5 (0-2) % Neut # (Auto) 28884 H (5836-7484) /uL Lymph # (Auto) 1200 (3128-8914) /uL Mckenzie # (Auto) 700 (0-900) /uL Eos # (Auto) 100 (0-450) /uL Baso # (Auto) 100 (0-100) /uL VBG pH (7.33-7.43) VBG pCO2 (45-50) mmHg VBG pO2 (35-45) mmHg VBG HCO3 (23-28) mmol/L VBG Total CO2 (24-29) mmol/L VBG O2 Saturation (70-75) % VBG Base Excess (0-4) mmol/L Sodium 136 L (137-145) mmol/L Potassium 4.7 (3.4-5.1) mmol/L Chloride 109 H (98-107) mmol/L Carbon Dioxide 13 L (22-32) mmol/L BUN 173 H* (9-20) mg/dL Creatinine 4.50 H (0.66-1.25) mg/dL Estimated GFR 12.5 L (>60) mL/min BUN/Creatinine Ratio 38.4 H (6-22) Glucose 150 H (80-110) mg/dL Lactate (0.7-2.1) mmol/L Calcium 8.1 L (8.4-10.2) mg/dL Total Bilirubin 0.6 (0.2-1.3) mg/dL AST 33 (17-59) IU/L ALT 34 (<50) IU/L Alkaline Phosphatase 88 (38-126) U/L NT-Pro-B Natriuret Pep (<450) pg/mL Total Protein 5.6 L (6.3-8.2) g/dL Albumin 2.9 L (3.5-5.0) g/dL Globulin 2.7 (1.7-4.1) g/dL Albumin/Globulin Ratio 1.1 (1.0-2.8) Lipase 125 (23-300) U/L Procalcitonin (<0.5) ng/mL SARS-CoV-2 (PCR) Negative (Negative) 04/20/21 04/20/21 04/20/21 Range/Units 17:45 17:45 17:45 WBC (4.5-11.0) X10^3/uL RBC (4.5-5.9) X10^6/uL Hgb (13.5-17.5) g/dL Hct (41-53) % MCV (80-100) fL MCH (26-34) PG MCHC (30-36) % RDW (11.6-14.8) % Plt Count (150-400) X10^3/uL Neut % (Auto) (50-75) % Lymph % (Auto) (25-40) % Mckenzie % (Auto) (3-14) % Eos % (Auto) (2-4) % Baso % (Auto) (0-2) % Neut # (Auto) (2631-2387) /uL Lymph # (Auto) (5909-8784) /uL Mckenzie # (Auto) (0-900) /uL Eos # (Auto) (0-450) /uL Baso # (Auto) (0-100) /uL VBG pH (7.33-7.43) VBG pCO2 (45-50) mmHg VBG pO2 (35-45) mmHg VBG HCO3 (23-28) mmol/L VBG Total CO2 (24-29) mmol/L VBG O2 Saturation (70-75) % VBG Base Excess (0-4) mmol/L Sodium (137-145) mmol/L Potassium (3.4-5.1) mmol/L Chloride (98-107) mmol/L Carbon Dioxide (22-32) mmol/L BUN (9-20) mg/dL Creatinine (0.66-1.25) mg/dL Estimated GFR (>60) mL/min BUN/Creatinine Ratio (6-22) Glucose (80-110) mg/dL Lactate 1.3 (0.7-2.1) mmol/L Calcium (8.4-10.2) mg/dL Total Bilirubin (0.2-1.3) mg/dL AST (17-59) IU/L ALT (<50) IU/L Alkaline Phosphatase (38-126) U/L NT-Pro-B Natriuret Pep 2750 H (<450) pg/mL Total Protein (6.3-8.2) g/dL Albumin (3.5-5.0) g/dL Globulin (1.7-4.1) g/dL Albumin/Globulin Ratio (1.0-2.8) Lipase (23-300) U/L Procalcitonin 0.58 H (<0.5) ng/mL SARS-CoV-2 (PCR) (Negative) 04/20/21 Range/Units 20:45 WBC (4.5-11.0) X10^3/uL RBC (4.5-5.9) X10^6/uL Hgb (13.5-17.5) g/dL Hct (41-53) % MCV (80-100) fL MCH (26-34) PG MCHC (30-36) % RDW (11.6-14.8) % Plt Count (150-400) X10^3/uL Neut % (Auto) (50-75) % Lymph % (Auto) (25-40) % Mckenzie % (Auto) (3-14) % Eos % (Auto) (2-4) % Baso % (Auto) (0-2) % Neut # (Auto) (0940-4941) /uL Lymph # (Auto) (1270-4120) /uL Mckenzie # (Auto) (0-900) /uL Eos # (Auto) (0-450) /uL Baso # (Auto) (0-100) /uL VBG pH 7.15 L* (7.33-7.43) VBG pCO2 44.5 L (45-50) mmHg VBG pO2 23 L (35-45) mmHg VBG HCO3 16 L (23-28) mmol/L VBG Total CO2 17 L (24-29) mmol/L VBG O2 Saturation 27 L (70-75) % VBG Base Excess -13.0 L (0-4) mmol/L Sodium (137-145) mmol/L Potassium (3.4-5.1) mmol/L Chloride (98-107) mmol/L Carbon Dioxide (22-32) mmol/L BUN (9-20) mg/dL Creatinine (0.66-1.25) mg/dL Estimated GFR (>60) mL/min BUN/Creatinine Ratio (6-22) Glucose (80-110) mg/dL Lactate (0.7-2.1) mmol/L Calcium (8.4-10.2) mg/dL Total Bilirubin (0.2-1.3) mg/dL AST (17-59) IU/L ALT (<50) IU/L Alkaline Phosphatase (38-126) U/L NT-Pro-B Natriuret Pep (<450) pg/mL Total Protein (6.3-8.2) g/dL Albumin (3.5-5.0) g/dL Globulin (1.7-4.1) g/dL Albumin/Globulin Ratio (1.0-2.8) Lipase (23-300) U/L Procalcitonin (<0.5) ng/mL SARS-CoV-2 (PCR) (Negative) Imaging Data Chest x-ray: Radiologist's Impression: PROCEDURE: XR CHEST 1V INDICATIONS: weakness TECHNIQUE: One view of the chest was acquired. COMPARISON: [facility], , XR CHEST 1V, 08/01/2020, 15:22. [facility], , XR CHEST 2V, 11/23/2019, 13:19. FINDINGS: Surgical changes and devices: None. Lungs and pleura: Lungs are clear. No pleural effusions or pneumothorax. Mediastinum: Mediastinal contours appear normal. Heart size is normal. Bones and chest wall: No suspicious bony lesions. Overlying soft tissues appear unremarkable. IMPRESSION: No acute cardiopulmonary abnormality. Dictated by: Steven Heath M.D. on 04/20/2021 at 20:03 Approved by: Steven Heath M.D. on 04/20/2021 at 20:03 ECG Data Attestation: I personally reviewed and interpreted this ECG as follows: Prior ECG tracings: available for review Interpretation: sinus rhythm rate 56 p.r. interval 250 QRS [address] changes right bundle-branch block noted similar to previous EKG MDM Narrative Medical decision making narrative: Patient has no signs of congestive heart failure or shortness of breath with hypotension. I believe patient to be dehydrated based on 3 days of diarrhea and increased BUN and creatinine. He has tolerated 500 cc bolus. Blood pressure has improved. Guaiac was negative he has significant skin breakdown of his sacral area no gross blood. 1952 Dr. Gibbons nephrology updated patient's symptoms test results happy to consult and at [facility]. Patient has metabolic acidosis non anion gap is likely due to diarrhea 2023 Hospitalist at [facility] updated patient's symptoms and test results at this time request ABG and recommends bicarb drip. Patient's blood pressure has actually improved his with IV fluid. He is overall clinically appears well. I do not see that he is on antibiotics but he was previously on antibiotics for his right arm wound which now seems to be healed. I suspect that he has C diff however he has not had any diarrhea in the emergency department. His sacral region does have some skin breakdown. Discharge Plan Departure Patient Disposition: [facility] Clinical Impression: Acute dehydration, Metabolic acidosis Diarrhea Qualifiers: Diarrhea type: presumed infectious Qualified Code(s): R19.7 - Diarrhea, unspecified Prescriptions: No Action Lantus U-100 Insulin 100 unit/mL Solution 30 unit SUBCUT DAILY RF: 0 tiotropium bromide 18 mcg Capsule, W/Inhalation Device 1 cap INHALATION DAILY RF: 0 venlafaxine 37.5 mg capsule,extended release 24hr 37.5 mg PO DAILY RF: 0 carvedilol 12.5 mg tablet 12.5 mg PO BID RF: 0 melatonin 3 mg Tablet 3 mg PO BEDTIME PRN (Reason: Insomnia) RF: 0 telmisartan 40 mg tablet 40 mg PO DAILY RF: 0 ferrous sulfate 325 mg (65 mg iron) Tablet 325 mg PO DAILY RF: 0 mupirocin calcium 2 % Cream 1 applic TOPICAL TID RF: 0 albuterol sulfate [ProAir HFA] 90 mcg/actuation Hfa Aerosol Inhaler 2 puff INHALATION Q4H PRN (Reason: Wheezing) RF: 0 clotrimazole 1 % Cream 1 applic TOPICAL DIRECTED RF: 0 Referrals: María Esteban MD [Primary Care Provider] -
[2021-04-20 18:18] LABS: Alanine Aminotransferase 34 IU/L (<50); Albumin 2.9 g/dL (3.5-5.0); Albumin Globulin Ratio 1.1 (1.0-2.8); Alkaline Phosphatase 88 U/L (38-126); Aspartate Aminotransferase 33 IU/L (17-59); Bilirubin Total 0.6 mg/dL (0.2-1.3); Calcium 8.1 mg/dL (8.4-10.2); Carbon Dioxide 13 mmol/L (22-32); Chloride 109 mmol/L (98-107); Estimated Glomerular Filt Rate 12.5 mL/min (>60); Globulin 2.7 g/dL (1.7-4.1); Glucose 150 mg/dL (80-110); Lipase 125 U/L (23-300); Potassium 4.7 mmol/L (3.4-5.1); Sodium 136 mmol/L (137-145); Total Protein 5.6 g/dL (6.3-8.2)
[2021-04-20 18:25] LABS: Lactate (Lactic Acid) 1.3 mmol/L (0.7-2.1)
[2021-04-20 18:26] LABS: HEMOLYSIS 46 (0-50)
[2021-04-20 18:27] LABS: BUN Creatinine Ratio 38.4 (6-22)
[2021-04-20 18:28] LABS: Blood Urea Nitrogen 173 mg/dL (9-20)
[2021-04-20 18:35] LABS: NT-proBNP (BNP-Adult 18+) 2750 pg/mL (<450); Procalcitonin 0.58 ng/mL (<0.5)
--- NOTE | 2021-04-20 18:44 | DI.RAD.S_ITS ---
PROCEDURE: XR CHEST 1V INDICATIONS: weakness TECHNIQUE: One view of the chest was acquired. COMPARISON: [facility], CR, XR CHEST 1V, 08/01/2020, 15:22. [facility], CR, XR CHEST 2V, 11/23/2019, 13:19. FINDINGS: Surgical changes and devices: None. Lungs and pleura: Lungs are clear. No pleural effusions or pneumothorax. Mediastinum: Mediastinal contours appear normal. Heart size is normal. Bones and chest wall: No suspicious bony lesions. Overlying soft tissues appear unremarkable. IMPRESSION: No acute cardiopulmonary abnormality. Dictated by: Steven Heath M.D. on 04/20/2021 at 20:03 Approved by: Steven Heath M.D. on 04/20/2021 at 20:03
--- NOTE | 2021-04-20 18:48 | PC.NURSE ---
Dry yellow stool noted to lower legs bilaterally. patient has significant redness noted to buttocks, small amount of bright red blood noted when cleaning buttocks. Stage II skin breakdown.
[2021-04-20 18:58] LABS: COVID19 - ADMIT (NP swab/PCR) Negative (Negative)
[2021-04-20 20:56] LABS: HCO3 VBG 16 mmol/L (23-28); Oxygen Saturation VBG 27 % (70-75); PCO2 VBG 44.5 mmHg (45-50); PO2 VBG 23 mmHg (35-45); Total CO2 VBG 17 mmol/L (24-29); pH VBG 7.15 (7.33-7.43)
[2021-04-20] MEDS: SODIUM BICARB 8.4% VIAL 100 MEQ in DEXTROSE 5% WATER 1,000 ML 150 MEQ IV (21:24)
--- NOTE | 2021-04-20 22:34 | PC.NURSE ---
Report called to Jacqueline MEDINA at [facility]
== END 2021-04-20 22:20 | disposition short-term general hospital (02) ==
PROVIDERS: Emergency Medicine; Emergency Provider Emergency Medicine; PCP Internal Medicine
DX: E87.2 Acidosis (principal); E86.0 Dehydration; R19.7 Diarrhea, unspecified; R53.1 Weakness; Z79.01 Long term (current) use of anticoagulants; M54.5 Low back pain; Z20.822 Contact with and (suspected) exposure to COVID-19
CPT/HCPCS: 36415; 71045; 80053; 82805; 83605; 83690; 83880; 84145; 85025; 87040; 87635; 93005; 96361; 96365; 99284; C9803

== ENCOUNTER → 2021-06-19 13:41 | Outpatient (CLI) | payer MEDICARE, OTHER, SELFPAY ==
[2019-11-23 17:48] VITALS: BMI 32.1
[2021-06-19 14:30] LABS: Add Manual Diff / Slide Review NO; Basophils Absolute Auto 0 /uL (0-100); Basophils Percent Auto 0.6 % (0-2); Eosinophils Absolute Auto 200 /uL (0-450); Eosinophils Percent Auto 2.7 % (2-4); Hematocrit 34.1 % (41-53); Hemoglobin 11.1 g/dL (13.5-17.5); Lymphocytes Absolute Auto 1500 /uL (1100-4500); Lymphocytes Percent Auto 20.6 % (25-40); Mean Corpuscular HGB Conc 32.5 % (30-36); Mean Corpuscular Hemoglobin 33.2 PG (26-34); Monocytes Absolute Auto 600 /uL (0-900); Monocytes Percent Auto 8.7 % (3-14); Neutrophils Absolute Auto 4800 /uL (1500-7000); Neutrophils Percent Auto 67.4 % (50-75); Platelet Count 222 X10^3/uL (150-400); Red Blood Cell Count 3.34 X10^6/uL (4.5-5.9); Red Cell Distribution Width 17.3 % (11.6-14.8); White Blood Cell Count 7.1 X10^3/uL (4.5-11.0)
[2021-06-19 14:47] LABS: Albumin 3.9 g/dL (3.5-5.0); Blood Urea Nitrogen 52 mg/dL (9-20); Calcium 9.1 mg/dL (8.4-10.2); Carbon Dioxide 19 mmol/L (22-32); Chloride 106 mmol/L (98-107); Glucose 176 mg/dL (80-110); HEMOLYSIS < 15 (0-50); Phosphorous 3.8 mg/dL (2.3-3.7); Sodium 135 mmol/L (137-145)
[2021-06-20 08:46] LABS: Parathyroid Hormone Int 96 pg/mL (15-65)
== END ==
PROVIDERS: PCP Internal Medicine; Referring Provider Internal Medicine Nephrology; Visit Provider Internal Medicine Nephrology
DX: N18.32 Chronic kidney disease, stage 3b (principal); I10 Essential (primary) hypertension
CPT/HCPCS: 36415; 80069; 83970; 85025

== ENCOUNTER 2021-07-16 11:09 | Inpatient (IN) | payer MEDICARE, OTHER, SELFPAY ==
[2019-11-23 17:48] VITALS: BMI 32.1
[2021-07-16] VITALS (25 sets, daily range): BP systolic 126–177; BP diastolic 65–108; PULSE 50–74; RESP 18–28; TEMP 35.9–36.7; O2SAT 91–98; BMI 31.6
--- NOTE | 2021-07-16 11:27 | DI.RAD.S_ITS ---
PROCEDURE: XR SHOULDER RT MIN 2V INDICATIONS: fall TECHNIQUE: 3 views of the shoulder were acquired. COMPARISON: None. FINDINGS: Bones: Minimally displaced oblique fracture involving right proximal humeral shaft/surgical neck is seen with fracture lines extending to greater and lesser tuberosities. No dislocation. Osteoarthritic changes are noted in acromioclavicular joint and glenohumeral joint. No suspicious bony lesions. Visualized ribs appear intact. Soft tissues: No suspicious soft tissue calcifications. IMPRESSION: Acute minimally displaced right proximal humeral shaft fracture as above. Dictated by: Guerrero Warren M.D. on 07/16/2021 at 12:24 Approved by: Guerrero Warren M.D. on 07/16/2021 at 12:25
--- NOTE | 2021-07-16 11:28 | DI.RAD.S_ITS ---
PROCEDURE: XR CHEST 1V INDICATIONS: syncope, ? STEMI TECHNIQUE: One view of the chest was acquired. COMPARISON: [facility], , XR CHEST 1V, 04/20/2021, 18:46. FINDINGS: Surgical changes and devices: None. Lungs and pleura: Lungs are clear. No pleural effusions or pneumothorax. Mediastinum: Mediastinal contours appear normal. Heart size is enlarged. Bones and chest wall: No suspicious bony lesions. Overlying soft tissues appear unremarkable. IMPRESSION: Cardiomegaly. No focal infiltrate or pneumothorax. Dictated by: Guerrero Warren M.D. on 07/16/2021 at 12:24 Approved by: Guerrero Warren M.D. on 07/16/2021 at 12:24
--- NOTE | 2021-07-16 11:30 | ED_ITS ---
HPI - General Adult General Chief complaint: Syncope Stated complaint: GLF Rt. Shoulder pain Time Seen by Provider: 07/16/21 11:27 Source: patient and EMS Mode of arrival: EMS History of Present Illness HPI narrative: 86-year-old gentleman lives at assisted living history of diabetes, hyperlipidemia, hypertension, CHF, paroxysmal a fib on abixaban after falling at home today landing on his right shoulder. Medics were called and as they were helping much he had another syncopal episode. He adamantly states that he simply stumbled causing the fall with the right shoulder injury. He states he had has no chest pain, orthopnea, dyspnea. Clearly states he did not hit his head and has no pain complaints aside from the right shoulder. He denies any recent fevers, cough, chills, abdominal pain, vomiting, diarrhea. He is fully vaccinated for COVID. He states he has not not been having any exertional angina or exertional dyspnea over the last weeks and denies any lower extremity edema. Related Data Home Medications Medication Instructions Recorded Confirmed albuterol sulfate 90 mcg/actuation 2 puff INHALATION Q4H PRN 11/23/19 11/23/19 aerosol inhaler (ProAir HFA) carvedilol 12.5 mg tablet 6.25 mg PO BID 11/23/19 07/16/21 insulin glargine 100 unit/mL 18 unit SUBCUT DAILY 11/23/19 07/16/21 subcutaneous solution (Lantus U-100 Insulin) melatonin 3 mg tablet 3 mg PO BEDTIME PRN 11/23/19 07/16/21 apixaban 2.5 mg tablet (Eliquis) 2.5 mg PO BID 07/16/21 07/16/21 cholecalciferol (vitamin D3) 125 125 mcg PO DAILY 07/16/21 07/16/21 mcg (5,000 unit) tablet (Vitamin D3) folic acid 800 mcg tablet 0.8 mg PO DAILY 07/16/21 07/16/21 furosemide 40 mg tablet 40 mg PO DAILY 07/16/21 07/16/21 methotrexate sodium 2.5 mg tablet 10 mg PO QWEEK 07/16/21 07/16/21 spironolactone 25 mg tablet 12.5 mg PO DAILY 07/16/21 07/16/21 tiotropium bromide 18 mcg capsule 18 mcg INHALATION DAILY 07/16/21 07/16/21 with inhalation device (Spiriva with HandiHaler) venlafaxine 75 mg capsule,extended 75 mg PO DAILY 07/16/21 07/16/21 release 24 hr Allergies Allergy/AdvReac Type Severity Reaction Status Date / Time No Known Drug Allergies Allergy Verified 11/23/19 18:42 Review of Systems Review of Systems Narrative: Remainder of complete review of systems is otherwise unremarkable except for that included in the HPI. Patient History Medical History (Updated 07/16/21 @ 16:08 by Tammy Calloway MD) Age related osteoporosis Alzheimer's dementia Arthritis of right hip Cataract Congestive heart failure (CHF) COPD (chronic obstructive pulmonary disease) Diabetes type 2, controlled Hard of hearing Hyperlipemia Hypertension Umbilical hernia Social History household members: family Smoking Status: Former smoker alcohol intake: current Smoking Status: Former smoker alcohol intake frequency: a few times a month Substance Use Type: does not use and marijuana Exam Narrative Exam Narrative: General: Healthy appearing, hard of hearing. Able to speak in full sentences HEENT: Moist mucous membranes, normal sclera with reactive pupils, Neck: No JVD, supple Respiratory: Lungs are clear to auscultation, no wheezing no rales no rhonchi. Full and symmetrical air movement Cardiac: Regular rate and rhythm no murmurs no bruits Abdomen: Soft, nontender, good bowel tones, no flank pain Skin: Warm and dry, no rashes Neurologic: Grossly neurologically intact with no obvious asymmetries or abnormalities Extremities: No trauma, well perfused Psych: Cooperative, appropriate insight and affect Initial Vital Signs Initial Vital Signs: Vital Signs Temperature 96.6 F L 07/16/21 11:17 Pulse Rate 53 L 07/16/21 11:17 Respiratory Rate 18 07/16/21 11:17 Blood Pressure 146/70 H 07/16/21 11:17 Pulse Oximetry 97 07/16/21 11:17 Course Course Course Narrative: 11:22 concern for acute STEMI is reviewed with patient and his daughter who has power of acoustical installer. Patient absolutely denies any chest pain and states he clearly is not having heart attack. When reviewed with his daughter patient is a no code, no intubation, minimal intervention and she belie ves that he would not want to have a cardiac catheterization. She does agree that medical management would be something he would agree to. Orders Ordered: ED Orders 07/16/21 11:20 Complete Blood Count AUTO DIFF Stat Comprehensive Metabolic Panel Stat Partial Thromboplastin Time Stat Troponin I Stat 07/16/21 11:27 XR shoulder RT min 2V Stat 07/16/21 11:28 XR chest 1V Stat 07/16/21 11:59 COVID19 - ADMIT (REGULATORY ASSISTANT swab/PCR) Stat 07/16/21 13:13 Troponin & CK Cardiac Panel Stat 07/16/21 13:30 EKG-12 Lead Stat 07/17/21 05:00 Hemoglobin and Hematocrit DAILY 07/17/21 05:30 PTT [Partial Thromboplastin Time] Q6H 07/17/21 11:30 PTT [Partial Thromboplastin Time] Q6H Partial Thromboplastin Time DAILY 07/18/21 11:30 Partial Thromboplastin Time DAILY 07/19/21 11:30 Partial Thromboplastin Time DAILY 07/20/21 11:30 Partial Thromboplastin Time DAILY 07/21/21 11:30 Partial Thromboplastin Time DAILY 07/22/21 11:30 Partial Thromboplastin Time DAILY Heparin Sodium/Dextrose (Heparin Drip) 25,000 unit in 500 mls @ 22.023 mls/hr IV CONT WILLARD; Protocol Last Titration: 07/16/21 16:20 Dose: 0 units/kg/hr, 0 mls/hr Documented by: Admin: 07/16/21 11:36 Dose: 12 units/kg/hr, 22.023 mls/hr Documented by: JEAN PAUL Discontinued Medications Aspirin (Aspirin 81 Mg Chew Tab) 324 mg PO NOW ONE Stop: 07/16/21 11:28 Last Admin: 07/16/21 11:37 Dose: 324 mg Documented by: JEAN PAUL Docusate Sodium (Docusate 100 Mg Capsule) 200 mg PO DAILY ONE Stop: 07/16/21 16:11 Last Admin: 07/16/21 16:36 Dose: 200 mg Documented by: TAD Heparin Sodium (Porcine) (Heparin 5,000 Unit/Ml Vial) 4,000 unit IV NOW ONE Stop: 07/16/21 11:29 Last Admin: 07/16/21 11:35 Dose: 4,000 unit Documented by: JEAN PAUL Ketorolac Tromethamine (Ketorolac 30 Mg/Ml Vial) 15 mg IV NOW ONE Stop: 07/16/21 16:11 Last Admin: 07/16/21 16:36 Dose: 15 mg Documented by: TAD Morphine Sulfate (Morphine 2 Mg/Ml Inj) 2 mg IV Q5MIN PRN PRN Reason: Chest Pain Last Admin: 07/16/21 14:44 Dose: 2 mg Documented by: Admin: 07/16/21 14:01 Dose: 2 mg Documented by: Admin: 07/16/21 12:20 Dose: 2 mg Documented by: JEAN PAUL Admin: 07/16/21 12:01 Dose: 2 mg Documented by: JEAN PAUL Admin: 07/16/21 11:52 Dose: 2 mg Documented by: JEAN PAUL Oxycodone/Acetaminophen (Oxycodone/Acetaminophen 5/325 Tablet) 1 tab PO NOW ONE Stop: 07/16/21 16:11 Vital Signs Vital signs: Vital Signs - 8 hr 07/16/21 11:17 07/16/21 11:43 07/16/21 12:00 Temperature 96.6 F L Pulse Rate 53 L 57 L 54 L Respiratory Rate 18 26 H Blood Pressure 146/70 H 136/67 145/65 H Pulse Oximetry 97 95 96 07/16/21 12:30 07/16/21 13:00 07/16/21 13:01 Temperature Pulse Rate 69 50 L 53 L Respiratory Rate 25 H 26 H 25 H Blood Pressure 161/76 H 163/77 H Pulse Oximetry 91 98 96 07/16/21 13:30 07/16/21 13:31 07/16/21 14:00 Temperature Pulse Rate 67 67 68 Respiratory Rate 23 Blood Pressure 148/78 H Pulse Oximetry 95 95 95 07/16/21 14:01 07/16/21 14:30 07/16/21 15:00 Temperature Pulse Rate 69 68 71 Respiratory Rate 28 H 28 H 28 H Blood Pressure 150/71 H 151/82 H 167/79 H Pulse Oximetry 96 97 92 07/16/21 15:30 07/16/21 15:31 07/16/21 16:00 Temperature Pulse Rate 71 73 66 Respiratory Rate 23 27 H 27 H Blood Pressure 171/80 H 176/80 H Pulse Oximetry 93 93 97 Medical Decision Making Lab Data Result diagrams: 07/16/21 11:20 07/16/21 11:20 Labs: Lab Results 07/16/21 07/16/21 07/16/21 Range/Units 11:20 11:20 11:20 WBC 7.8 (4.5-11.0) X10^3/uL RBC 3.13 L (4.5-5.9) X10^6/uL Hgb 10.8 L (13.5-17.5) g/dL Hct 31.9 L (41-53) % MCV 102.0 H (80-100) fL MCH 34.4 H (26-34) PG MCHC 33.8 (30-36) % RDW 16.4 H (11.6-14.8) % Plt Count 267 (150-400) X10^3/uL Neut % (Auto) 80.6 H (50-75) % Lymph % (Auto) 13.5 L (25-40) % [place] % (Auto) 3.6 (3-14) % Eos % (Auto) 1.9 L (2-4) % Baso % (Auto) 0.4 (0-2) % Neut # (Auto) 6300 (6117-8048) /uL Lymph # (Auto) 1100 (5310-2231) /uL [place] # (Auto) 300 (0-900) /uL Eos # (Auto) 100 (0-450) /uL Baso # (Auto) 0 (0-100) /uL APTT 31 (26.4-36.2) SECONDS Sodium 135 L (137-145) mmol/L Potassium 4.3 (3.4-5.1) mmol/L Chloride 104 (98-107) mmol/L Carbon Dioxide 24 (22-32) mmol/L BUN 51 H (9-20) mg/dL Creatinine 1.89 H (0.66-1.25) mg/dL Estimated GFR 34.1 L (>60) mL/min BUN/Creatinine Ratio 27.0 H (6-22) Glucose 152 H (80-110) mg/dL Calcium 8.7 (8.4-10.2) mg/dL Total Bilirubin 0.5 (0.2-1.3) mg/dL AST 31 (17-59) IU/L ALT 27 (<50) IU/L Alkaline Phosphatase 60 (38-126) U/L Total Creatine Kinase (55-170) U/L CK-MB (CK-2) CK-MB (CK-2) Rel Index Troponin I 0.017 (0.01-0.034) ng/mL Total Protein 6.3 (6.3-8.2) g/dL Albumin 3.5 (3.5-5.0) g/dL Globulin 2.8 (1.7-4.1) g/dL Albumin/Globulin Ratio 1.3 (1.0-2.8) SARS-CoV-2 (PCR) (Negative) 07/16/21 07/16/21 Range/Units 11:59 13:13 WBC (4.5-11.0) X10^3/uL RBC (4.5-5.9) X10^6/uL Hgb (13.5-17.5) g/dL Hct (41-53) % MCV (80-100) fL MCH (26-34) PG MCHC (30-36) % RDW (11.6-14.8) % Plt Count (150-400) X10^3/uL Neut % (Auto) (50-75) % Lymph % (Auto) (25-40) % [place] % (Auto) (3-14) % Eos % (Auto) (2-4) % Baso % (Auto) (0-2) % Neut # (Auto) (8213-3963) /uL Lymph # (Auto) (8469-6650) /uL [place] # (Auto) (0-900) /uL Eos # (Auto) (0-450) /uL Baso # (Auto) (0-100) /uL APTT (26.4-36.2) SECONDS Sodium (137-145) mmol/L Potassium (3.4-5.1) mmol/L Chloride (98-107) mmol/L Carbon Dioxide (22-32) mmol/L BUN (9-20) mg/dL Creatinine (0.66-1.25) mg/dL Estimated GFR (>60) mL/min BUN/Creatinine Ratio (6-22) Glucose (80-110) mg/dL Calcium (8.4-10.2) mg/dL Total Bilirubin (0.2-1.3) mg/dL AST (17-59) IU/L ALT (<50) IU/L Alkaline Phosphatase (38-126) U/L Total Creatine Kinase 35 L (55-170) U/L CK-MB (CK-2) TNP CK-MB (CK-2) Rel Index TNP Troponin I 0.016 (0.01-0.034) ng/mL Total Protein (6.3-8.2) g/dL Albumin (3.5-5.0) g/dL Globulin (1.7-4.1) g/dL Albumin/Globulin Ratio (1.0-2.8) SARS-CoV-2 (PCR) Negative (Negative) Imaging Data Chest x-ray: Radiologist's Impression: FINDINGS: Surgical changes and devices: None. Lungs and pleura: Lungs are clear. No pleural effusions or pneumothorax. Mediastinum: Mediastinal contours appear normal. Heart size is enlarged. Bones and chest wall: No suspicious bony lesions. Overlying soft tissues appear unremarkable. IMPRESSION: Cardiomegaly. No focal infiltrate or pneumothorax. Dictated by: Guerrero Warren M.D. on 07/16/2021 at 12:24 XR R humerus: Radiologist's Impression: FINDINGS: Bones: Minimally displaced oblique fracture involving right proximal humeral shaft/surgical neck is seen with fracture lines extending to greater and lesser tuberosities. No dislocation. Osteoarthritic changes are noted in acromioclavicular joint and glenohumeral joint. No suspicious bony lesions. Visualized ribs hallie ear intact. Soft tissues: No suspicious soft tissue calcifications. IMPRESSION: Acute minimally displaced right proximal humeral shaft fracture as above. Dictated by: Guerrero Warren M.D. on 07/16/2021 at 12:24 ECG Data Interpretation: 11:19 Sinus bradycardia at a rate of 58 ST elevation in leads [address] depression in leads 1 aVL and V6 Comparison to prior EKGs show that ST elevation is more pronounced in leads [address]. [address] depression in aVL, 1 and V6 was present on prior EKGs but is slightly more pronounced today STEMI MDM Narrative Medical decision making narrative: 86-year-old gentleman with syncopal episode while on Eliquis resulting in a right proximal humerus fracture. EKG on arrival suggested STEMI or at least dynamic EKG changes in the setting of prior cardiac disease. Patient was absolutely asymptomatic. Initial troponin was unremarkable. Repeat troponin and EKG 2 hours show EKG changes resolving back to his baseline and troponin remains unremarkable. Given his desire for minimal intervention we again discussed disposition. He continues to be weak, we do not have a complete explanation for the syncopal episode he clearly has these dynamic EKG changes that have improved and he is entirely dependent on a walker and now will not be able to use his right arm in any way to mobilize. Current living situation is assisted living with assistance being for meals only there is no medical assistance available to him. In light of all of these concerns will opt to admit him to the hospital to further rule out non STEMI/acute coronary event, have PT evaluate him with his proximal humerus fracture and likely will need social work to help with final disposition to a setting that will be safe for him. Care is reviewed with Dr. Dillon, patient will be admitted to the medicine service. Discharge Plan Departure Patient Disposition: Admitted as Observation Clinical Impression: Syncope and collapse Fall Qualifiers: Encounter type: initial encounter Qualified Code(s): W19.XXXA - Unspecified fall, initial encounter Fracture, humerus, anatomical neck Qualifiers: Encounter type: initial encounter Fracture type: closed Laterality: right Qualified Code(s): S42.291A - Other displaced fracture of upper end of right humerus, initial encounter for closed fracture Admit Date/Time: 07/16/21 16:04 Admit Provider: Jonathan Dillon
[2021-07-16 11:32] LABS: Add Manual Diff / Slide Review NO; Basophils Absolute Auto 0 /uL (0-100); Basophils Percent Auto 0.4 % (0-2); Eosinophils Absolute Auto 100 /uL (0-450); Eosinophils Percent Auto 1.9 % (2-4); Hematocrit 31.9 % (41-53); Hemoglobin 10.8 g/dL (13.5-17.5); Lymphocytes Absolute Auto 1100 /uL (1100-4500); Lymphocytes Percent Auto 13.5 % (25-40); Mean Corpuscular HGB Conc 33.8 % (30-36); Mean Corpuscular Hemoglobin 34.4 PG (26-34); Monocytes Absolute Auto 300 /uL (0-900); Monocytes Percent Auto 3.6 % (3-14); Neutrophils Absolute Auto 6300 /uL (1500-7000); Neutrophils Percent Auto 80.6 % (50-75); Platelet Count 267 X10^3/uL (150-400); Red Blood Cell Count 3.13 X10^6/uL (4.5-5.9); Red Cell Distribution Width 16.4 % (11.6-14.8); White Blood Cell Count 7.8 X10^3/uL (4.5-11.0)
[2021-07-16] MEDS: HEPARIN 5,000 UNIT/ML VIAL 4000 UNIT IV (11:35)
[2021-07-16] MEDS: HEPARIN DRIP 25,000 UNIT/500 ML IV.SOLN 22.023 UNIT IV (11:36)
[2021-07-16] MEDS: ASPIRIN 81 MG CHEW TAB 324 MG PO (11:37)
[2021-07-16 11:45] LABS: PTT Partial Thromboplastin Tim 31 SECONDS (26.4-36.2)
[2021-07-16 11:47] LABS: Alanine Aminotransferase 27 IU/L (<50); Albumin 3.5 g/dL (3.5-5.0); Albumin Globulin Ratio 1.3 (1.0-2.8); Alkaline Phosphatase 60 U/L (38-126); Aspartate Aminotransferase 31 IU/L (17-59); Bilirubin Total 0.5 mg/dL (0.2-1.3); Blood Urea Nitrogen 51 mg/dL (9-20); Calcium 8.7 mg/dL (8.4-10.2); Carbon Dioxide 24 mmol/L (22-32); Chloride 104 mmol/L (98-107); Estimated Glomerular Filt Rate 34.1 mL/min (>60); Globulin 2.8 g/dL (1.7-4.1); Glucose 152 mg/dL (80-110); HEMOLYSIS < 15 (0-50); Potassium 4.3 mmol/L (3.4-5.1); Sodium 135 mmol/L (137-145); Total Protein 6.3 g/dL (6.3-8.2)
[2021-07-16] MEDS: MORPHINE 2 MG/ML INJ IV ×5 (11:52→14:44)
[2021-07-16 11:59] LABS: Troponin I 0.017 ng/mL (0.01-0.034)
--- NOTE | 2021-07-16 12:23 | PC.NURSE ---
Pt had reportedly stumbled and fell and a cry for help was heard by staff. Deformity of the R shoulder was noticed and EMS was called. When EMS lifted pt up he had a syncopal episode. When brought to the ER an EKG was done which showed a STEMI and MD was called to bedside. Pt's POA/daughter is enforcing his POLST request of DNR and limited intervention and does not wish for the pt to be transferred for cardiac intervention.
[2021-07-16 12:52] LABS: COVID19 - ADMIT (NP swab/PCR) Negative (Negative)
[2021-07-16 13:33] LABS: Creatine Kinase 35 U/L (55-170)
[2021-07-16 13:46] LABS: Troponin I 0.016 ng/mL (0.01-0.034)
[2021-07-16] MEDS: KETOROLAC 30 MG/ML VIAL 15 MG IV (16:36)
[2021-07-16] MEDS: DOCUSATE 100 MG CAPSULE 200 MG PO (16:36)
[2021-07-16 20:40] LABS: Hemoglobin A1C% w Est Avg Glu 7.5 % (4.0-6.0)
[2021-07-16 20:45] LABS: Magnesium 1.9 mg/dL (1.6-2.3)
[2021-07-16 20:55] LABS: NT-proBNP (BNP-Adult 18+) 4100 pg/mL (<450)
[2021-07-16 20:57] LABS: Troponin I 0.016 ng/mL (0.01-0.034)
[2021-07-16] MEDS: ONDANSETRON 4 MG/2 ML INJ IV (21:29)
[2021-07-16] MEDS: ACETAMINOPHEN 325 MG TABLET 650 MG PO (21:29)
[2021-07-16] MEDS: SENNOSIDES 8.6 MG TABLET 17.2 MG PO (21:30)
[2021-07-16] MEDS: INSULIN LISPRO 100 UNIT/ML 3ML VIAL SUBCUT (21:30)
--- NOTE | 2021-07-16 23:34 | PM.HP.1 ---
History of Present Illness History of Present Illness Date Patient Seen: 07/16/21 Time Patient Seen: 19:54 Chief complaint: GLF Rt. Shoulder pain Narrative: Patient is a 86-year-old gentleman [facility] who lives at assisted living history of Alzheimer's dementia, diabetes, hyperlipidemia,remote bullous pemphigoid, COPD, hypertension, CHF, paroxysmal a fib on abixaban after falling at home today landing on his right shoulder. While the medics were assisting the patient he had another syncopal episode. He adamantly states that he simply stumbled causing the fall with the right shoulder injury. He states he had has no chest pain, orthopnea, dyspnea. Clearly states he did not hit his head and has no pain complaints aside from the right shoulder. He denies any recent fevers, cough, chills, diaphoresis, abdominal pain, vomiting, diarrhea. He is fully vaccinated for COVID. He states he has not not been having any exertional angina or exertional dyspnea over the last weeks and denies any lower extremity edema. In the ED: 11:22 concern for acute STEMI is reviewed with patient and his daughter who has power of electromechanical equipment tester. Patient absolutely denies any chest pain and states he clearly is not having heart attack. When reviewed with his daughter patient is a no code, no intubation, minimal intervention and she believes that he would not want to have a cardiac catheterization. She does agree that medical management would be something he would agree to. Upon admit patient is resting and sleeping comfortably in bed, reports ROS is negative as stated above. Patient is orientated to self but is confused, daughter reported to the ED that this is the patient's cognitive baseline. Patient's vitals upon admit are mostly within normal limits temp 97.3?, mild hypertension B/P 168/98, HR 74, RR 18, O2 saturation 94% on room air. Patient is slightly anemic with a hemoglobin at 10.8, HCT 31.9, MCV 102. Sodium 135, BUN 51, creatinine 1.89 up from 1.68 on 06/19/2021, GFR 34.1 down from 39, total creatinine kinase 35, troponin 1. 0.017, 2. 0.016, 3. 0.016. Chest x-ray demonstrated cardiomegaly without focal infiltrates or pneumothorax. Right shoulder x-ray demonstrated acute minimally displaced right proximal humeral shaft fracture. EKG demonstrated acute STEMI/MA with a ventricular rate of 58 unusual P access, incomplete right bundle-branch block, septal infarct, and possible right ventricular acute infarction. Patient remains asymptomatic did not and has not had any chest pain, shortness of breath, diaphoresis, jaw pain or any other cardiac symptoms. Patient admitted for syncopal episode of unknown etiology, STEMI/ACS rule out, resulting in ground level fall, and minimally displaced right proximal humeral shaft fracture, with mild BERKLEY. Patient History Medical History Age related osteoporosis Alzheimer's dementia Arthritis of right hip Cataract Congestive heart failure (CHF) COPD (chronic obstructive pulmonary disease) Diabetes type 2, controlled Hard of hearing Hyperlipemia Hypertension Umbilical hernia Family & Social History Social History: household members family Prior Living Arrangements Assisted Living Safety & Behavioral: Feels Safe in Current Yes Environment Been Physically Hurt or No Threatened By a Person Suicidal Ideation Description None Suicide Plan Description No Plan Tobacco & Substance use: Smoking Status Former smoker alcohol intake never alcohol intake frequency a few times a month Substance Use Type does not use Meds Home Medications and Allergies Home Medications Medication Instructions Recorded Confirmed Type albuterol sulfate 90 mcg/actuation 2 puff INHALATION Q4H PRN 11/23/19 07/16/21 History aerosol inhaler (ProAir HFA) carvedilol 12.5 mg tablet 6.25 mg PO BID 11/23/19 07/16/21 History insulin glargine 100 unit/mL 18 unit SUBCUT DAILY 11/23/19 07/16/21 History subcutaneous solution (Lantus U-100 Insulin) melatonin 3 mg tablet 3 mg PO BEDTIME PRN 11/23/19 07/16/21 History apixaban 2.5 mg tablet (Eliquis) 2.5 mg PO BID 07/16/21 07/16/21 History cholecalciferol (vitamin D3) 125 125 mcg PO DAILY 07/16/21 07/16/21 History mcg (5,000 unit) tablet (Vitamin D3) folic acid 800 mcg tablet 0.8 mg PO DAILY 07/16/21 07/16/21 History furosemide 40 mg tablet 40 mg PO DAILY 07/16/21 07/16/21 History methotrexate sodium 2.5 mg tablet 10 mg PO QWEEK 07/16/21 07/16/21 History spironolactone 25 mg tablet 12.5 mg PO DAILY 07/16/21 07/16/21 History tiotropium bromide 18 mcg capsule 18 mcg INHALATION DAILY 07/16/21 07/16/21 History with inhalation device (Spiriva with HandiHaler) venlafaxine 75 mg capsule,extended 75 mg PO DAILY 07/16/21 07/16/21 History release 24 hr Allergies Allergy/AdvReac Type Severity Reaction Status Date / Time No Known Drug Allergies Allergy Verified 11/23/19 18:42 Review of Systems Review of Systems Narrative: All 12 point systems reviewed with the patient and are negative except otherwise documented. Patient unable to appropriately and adequately participate in HPI or ROS due to Alzheimer's dementia. Exam Vital Signs (past 8 hours): - 07/16/21 16:00 07/16/21 16:30 07/16/21 16:31 Temperature Pulse Rate 66 72 71 Respiratory Rate 27 H 23 24 Blood Pressure 176/80 H 162/85 H Pulse Oximetry 97 94 94 07/16/21 17:00 07/16/21 17:01 07/16/21 17:40 Temperature 96.9 F L Pulse Rate 70 69 74 Respiratory Rate 18 18 18 Blood Pressure 157/75 H 168/98 H Pulse Oximetry 94 94 94 07/16/21 19:38 07/16/21 20:40 Temperature 96.9 F L Pulse Rate 69 Respiratory Rate 18 Blood Pressure 177/108 H Pulse Oximetry 94 95 Oxygen Delivery Method Room Air Oxygen Flow Rate 0 Narrative Exam Narrative: General: Patient is a well-developed, well-nourished male in no distress at this time. HEENT: Normocephalic, atraumatic, extraocular muscles intact, oral pharynx is clear and mucous membranes are moist. Neck is supple and symmetric, trachea is midline, no adenopathy, no thyroid enlargement, nontender, no masses palpated. Negative for JVD Chest: Normal AP diameter and contour without kyphoscoliosis, no nasal flaring, retractions, or tachypneic labored Lungs: Auscultation of all lung pena are clear without adventitious sounds, wheezes, rhonchi, or rales. Cardio: S1 & S2 with regular rate and rhythm without murmur, rubs, or gallops, no carotid bruit, no cardiac pulsations present. Abdomen: Soft nontender, negative for organomegaly, or masses. Bowel sounds are present in all 4 quadrants without guarding or rebound, no CVA tenderness. Musculoskeletal: Right Arm in sling-right radial pulse intact, cap refill WNL, warm to touch good circulation. Muscle strength and tone are equal within normal limits, no deformity, crepitus, effusions, cyanosis, clubbing or edema present. Full range of motion intact radial and pedal pulses are normal. Skin: Warm dry and intact without rashes, ulcerations or petechiae. Neuro: Alert and orientated x1 to person, strength is +5/5 in all extremities, sensation to touch intact, no gross deficits noted of cranial nerves. Psych: Patient has a well-kept appearance, appropriate affect. Objective Labs Result Diagrams: 07/16/21 11:20 07/16/21 11:20 Labs: Laboratory Results - last 24 hr 07/16/21 07/16/21 07/16/21 11:20 11:20 11:20 WBC 7.8 RBC 3.13 L Hgb 10.8 L Hct 31.9 L MCV 102.0 H MCH 34.4 H MCHC 33.8 RDW 16.4 H Plt Count 267 Neut % (Auto) 80.6 H Lymph % (Auto) 13.5 L Armstrong % (Auto) 3.6 Eos % (Auto) 1.9 L Baso % (Auto) 0.4 Neut # (Auto) 6300 Lymph # (Auto) 1100 Armstrong # (Auto) 300 Eos # (Auto) 100 Baso # (Auto) 0 APTT 31 Sodium 135 L Potassium 4.3 Chloride 104 Carbon Dioxide 24 BUN 51 H Creatinine 1.89 H Estimated GFR 34.1 L BUN/Creatinine Ratio 27.0 H Glucose 152 H Hemoglobin A1c Calcium 8.7 Magnesium Total Bilirubin 0.5 AST 31 ALT 27 Alkaline Phosphatase 60 Total Creatine Kinase CK-MB (CK-2) CK-MB (CK-2) Rel Index Troponin I 0.017 NT-Pro-B Natriuret Pep Total Protein 6.3 Albumin 3.5 Globulin 2.8 Albumin/Globulin Ratio 1.3 SARS-CoV-2 (PCR) 07/16/21 07/16/21 07/16/21 11:59 13:13 20:15 WBC RBC Hgb Hct MCV MCH MCHC RDW Plt Count Neut % (Auto) Lymph % (Auto) Armstrong % (Auto) Eos % (Auto) Baso % (Auto) Neut # (Auto) Lymph # (Auto) Armstrong # (Auto) Eos # (Auto) Baso # (Auto) APTT Sodium Potassium Chloride Carbon Dioxide BUN Creatinine Estimated GFR BUN/Creatinine Ratio Glucose Hemoglobin A1c Calcium Magnesium 1.9 Total Bilirubin AST ALT Alkaline Phosphatase Total Creatine Kinase 35 L CK-MB (CK-2) TNP CK-MB (CK-2) Rel Index TNP Troponin I 0.016 NT-Pro-B Natriuret Pep Total Protein Albumin Globulin Albumin/Globulin Ratio SARS-CoV-2 (PCR) Negative 07/16/21 07/16/21 07/16/21 20:15 20:15 20:15 WBC RBC Hgb Hct MCV MCH MCHC RDW Plt Count Neut % (Auto) Lymph % (Auto) Armstrong % (Auto) Eos % (Auto) Baso % (Auto) Neut # (Auto) Lymph # (Auto) Armstrong # (Auto) Eos # (Auto) Baso # (Auto) APTT Sodium Potassium Chloride Carbon Dioxide BUN Creatinine Estimated GFR BUN/Creatinine Ratio Glucose Hemoglobin A1c 7.5 H Calcium Magnesium Total Bilirubin AST ALT Alkaline Phosphatase Total Creatine Kinase CK-MB (CK-2) CK-MB (CK-2) Rel Index Troponin I 0.016 NT-Pro-B Natriuret Pep 4100 H Total Protein Albumin Globulin Albumin/Globulin Ratio SARS-CoV-2 (PCR) Assessment & Plan Assessment & Plan narrative: Mr. Tj Bull is an 86-year-old male with past medical history of Alzheimer's dementia, remote bullous pemphigoid, COPD, diabetes, hypertension, and CHF who presented to the emergency room with witnessed syncopal episode possibly x2 of unknown etiology, STEMI/ACS rule out, resulting in a fall right proximal humeral shaft fracture, with mild BERKLEY/sepsis. 1. Witnessed syncopal episode of unknown etiology, precipitating mechanical ground level fall, resulting in displaced right proximal humeral shaft pathologic fracture, in the setting of age-related osteoporosis, acute on chronic, present on admission -Right shoulder x-ray demonstrated acute minimally displaced right proximal humeral shaft fracture. -patient's right arm was sliding in the ED. -pain and inflammation management -ordered: Dr. Precious Harry consult for evaluation and recommendation -PT and OT consult -strict fall precautions -patient will need social work evaluation of discharge home or facility, as patient has a right arm fracture, normally ambulates with a walker, and lives in assisted living without medical support. 2. 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 Heart Score:8 -patient and daughter JOSIE both refused transfer for cardiac catheterization, agreed only to medication interventions, DNR/DNI. -patient was and remains asymptomatic of acute STEMI symptoms, patient continues to demonstrate no chest pain, shortness of breath, diaphoresis, hemodynamic instability, agitation, troponins trended x3: 0.017, 0.016, 0.016. -patient was given 325 ASA, heparin bolus and placed on heparin drip in the ED. -consult:00:00 Dr. Carranza-regarding anticoagulation. After reviewing the case w/Dr. Carranza control analyst-he recommended that the patient did not need to have additional cardiac prophylactic anticoagulation and to continue on his current Eliquis dose. -Clinically he has no weight gain, JVD, lower extremity edema, or bibasilar crackles. Possible CHF exacerbation, he did come in due to syncopal episode, fatigue, elevated BNP [id number] with cardiomegaly on chest x-ray all consistent with his known heart failure, but my suspicion is low for exacerbation as the cause of syncope. -rule out: developing atrial fibrillation, sinus pause, sick sinus syndrome, stroke, TIA, vertigo, hypoglycemia, orthostatic hypotension, hypovolemia, UTI. -strict I&O Qshift, daily weights, 2 L fluid restriction, Q shift orthostatics while awake, patient on telemedicine. -echo ordered for tomorrow -continue home Eliquis 2.5 mg b.i.d., carvedilol 6.25 mg b.i.d. -risk stratify with TSH, A1c, and lipid panel -recommend outpatient Cardiology follow-up, possible Holter monitor. 3. 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 SOFA:4 -Consistent GFR 48.4 or below, creatinine elevation > 1.40 since November 2019-CKD stage G3B-I personally reviewed patient's lab values back to November 2019. -monitor for signs of infection- WBCs and chemistry -holding patient's spirolactone and Lasix due to mild BERKLEY -very gentle rehydration with LR at 21 cc/hour x 12 hours to correct BERKLEY, due to risk for CHF exacerbation -patient admitted on diabetes protocol, monitor for hypoglycemia, blood sugar checks a.c./HS -continue patient's home Lantus, and placed on low-dose sliding scale -A1c: 7.5%, lipid panel ordered- pt not on statin. -Recommend Cardiology Consult tomorrow -consideration will be given to dietary counseling -continue to monitor renal function -avoid nephrotoxic medications -patient does have a history of post residual retention and chronic bladder outlet obstruction. -obtain/ monitor post void residual, U/A w/culture- if unable to obtain random, straight in out cath. Ordered Blood cultures x2 in am. -consider Flomax - if post void residual > 300cc -consider renal ultrasound if post void residual present. -Outpt Urology follow-up 4. Mild anemia of unknown etiology, acute, present on admission -hemoglobin at 10.8, HCT 31.9, MCV 102. -patient's hemoglobin is normally low between 12-11 since November 2019 -monitor hematology, u/a to evaluate hematuria 5. COPD, chronic, stable, present on admission -continue home Spiriva, and as needed albuterol 6. Alzheimer's dementia, acute on chronic, present on admission -patient is unable to appropriately participate in his HPI or ROS due to cognitive impairment -patient is alert and orientated x1 to self, daughter reported in the ED that patient was at baseline on admit. -continue patient's venlafaxine Code Status : DNR Surrogate decision maker: Patient's daughter Gerald Covid PCR: Negative COVID vaccination: Patient is fully vaccinated DVT/VTE prophylaxis: Patient to continue Eliquis and SCDs Dispo: Estimated length of stay less than 2 midnights Scores GCS Beverly coma scale eye opening: To sound Lund coma scale verbal response: Confused Lund coma scale motor response: Localising Beverly coma scale total score: 12 Quality VTE Deep Vein Thrombosis/Pulmonary Embolism Present on Admission: No
[2021-07-16] MEDS: carvediloL 12.5 MG TABLET 6.25 MG PO (23:55)
[2021-07-17] VITALS (15 sets, daily range): BP systolic 121–147; BP diastolic 61–79; PULSE 72–86; RESP 16–20; TEMP 35.9–36.7; O2SAT 90–98
--- NOTE | 2021-07-17 00:09 | DI.ECHO.S_ITS ---
[facility]---------+ [facility] +---------+ : : [address] : : : : [id number] : : : : Phone: [phone]+ Echocardiogram Report + + :Name: JEREMY LAM Study Date: 07/17/2021 Height: 67 in : :[facility] ReadingLocation: Weight: 202 lb : : Gender: Male BSA: 2.0 m2 : :: 1935 Age: 86 yrs BP: 134/70 mmHg: :Reason For Study: STEMI : :Ordering Physician: TIFFANI, : :JEFFRY Performed By: Yemi Perez : :Referring: JEFFRY NIXON : + + Interpretation Summary 1) Mildly enlarged left ventricle with moderately reduced systolic function (EF 35-40%). 2) Basal to mid anterolateral wall extending to the inferolateral wall are severely hypokinetic. Apical septum appears hypokinetic. 3) Normal right ventricular size and function. 4) No significant valvular abnormalities. 5) Compared to the Echo done 09/11/2020, no significant change in LV function. Procedure: A two-dimensional transthoracic echocardiogram with color flow and Doppler was performed. The study quality was technically adequate. Comparison is made with the echocardiogram of 09/11/2020. A contrast injection of Definity was performed to improve assessment of LV function. The patient was in sinus rhythm with heart rates between 59-75 bpm during the exam. Left Ventricle: The left ventricle is mildly dilated. Left ventricular wall thickness is normal. Proximal septal thickening is noted. Left ventricular systolic function is moderately reduced. The ejection fraction is estimated to be 35-40%. Basal to mid anterolateral wall extending to the inferolateral wall are severely hypokinetic. Apical septum appears hypokinetic. Diastolic parameters suggest a relaxation abnormality of the left ventricle, consistent with probable normal filling pressures. Right Ventricle: The right ventricle is normal in size and function. Atria: Both atria are normal in size. There is no Doppler evidence for an interatrial shunt. Mitral Valve: The mitral valve is normal in structure and function. There is mild mitral regurgitation. Aortic Valve: There is mild aortic valve sclerosis. There is no aortic valve stenosis. No aortic regurgitation is present. Tricuspid Valve: The tricuspid valve is normal in structure and function. There is mild tricuspid regurgitation. The right ventricular systolic pressure is estimated to be at least 26 mmHg based on an estimated right atrial pressure of 3 mm Hg. Pulmonic Valve: The pulmonic valve is normal in structure and function. There is no pulmonic valvular regurgitation. Great Vessels: The aortic root is normal size. The dimensions of the ascending aorta are normal. The IVC is of normal diameter and collapses greater than 50% with a sniff. This suggests a low right atrial pressure of 3 mm Hg. Pericardium/ Pleura There is no pericardial effusion. There is no pleural effusion. MMode/2D Measurements & Calculations LVIDd: 5.7 cm LVOT diam: 2.1 cm LVIDs: 4.8 cm Ao root diam: 3.3 cm FS: 15.8 % asc Aorta Diam: 3.3 cm IVSd: 1.5 cm LVPWd: 1.0 cm LV guzman. diameter/BSA (cm/m^2): 2.8 LV sys. diameter/BSA (cm/m^2): 2.4 LA dimension: 3.6 cm RA long axis: 4.5 cm LA A2 area: 17.1 cm2 LA A4 area: 22.6 cm2 LA length (vol): 5.0 cm LA vol: 65.1 ml LA vol index: 32.1 ml/m2 LVLs ap4: 9.3 cm LVLd ap2: 9.1 cm LVLs ap2: 8.9 cm TAPSE_phl: 2.1 cm Doppler Measurements & Calculations Ao V2 max: 148.0 cm/sec LVOT Max Jacky: 86.2 cm/sec Ao V2 mean: 104.0 cm/sec LV V1 max P.0 mmHg Ao max P.0 mmHg LV V1 VTI: 19.4 cm Ao mean P.0 mmHg ALBIN(I,D): 2.3 cm2 Ao V2 VTI: 28.9 cm ALBIN(V,D): 2.0 cm2 sev ratio: 0.67 ALBIN indexed to BSA (cm^2/m^2): 1.1 MV E max jacky: 46.7 cm/sec TR max jacky: 241.0 cm/sec MV A max jacky: 117.0 cm/sec TR max P.2 mmHg MV E/A: 0.40 PA V2 max: 115.0 cm/sec Med Peak E' Jacky: 3.2 cm/sec PA V2 mean: 72.6 cm/sec E/E' med: 14.6 PA mean P.0 mmHg Lat Peak E' Jacky: 4.9 cm/sec PA pr(Accel): 38.5 mmHg E/E' lat: 9.5 E/e' average: 12.1 MV dec time: 0.31 sec SV(LVOT): 67.2 ml AV VR_phl: 0.58 ALBIN(VTI)/BSA_phl: 1.1 MV P1/2t-pr_phl: 91.0 msec Reading Physician:12:21 PM
[2021-07-17] MEDS: LACTATED RINGERS 500 ML 21 ML IV (02:53)
--- NOTE | 2021-07-17 04:21 | PC.NURSE ---
During 1x episode bowel incontinence, pt was gently turned and this RN observed a 2 cm round open area on r buttox w/ 2x 0.25 cm red raw areas inside. Pt placed in brief and barrier cream applied to area. Scarring in similar shape noted on buttox as well as blanchable redness. Documented in physical assessment.
[2021-07-17 06:18] LABS: Add Manual Diff / Slide Review NO; Basophils Absolute Auto 0 /uL (0-100); Basophils Percent Auto 0.3 % (0-2); Eosinophils Absolute Auto 100 /uL (0-450); Eosinophils Percent Auto 2.5 % (2-4); Hematocrit 31.8 % (41-53); Hemoglobin 10.6 g/dL (13.5-17.5); INR 1.3 (0.9-1.3); Lymphocytes Absolute Auto 400 /uL (1100-4500); Lymphocytes Percent Auto 6.8 % (25-40); Mean Corpuscular HGB Conc 33.3 % (30-36); Mean Corpuscular Volume 102.3 fL (80-100); Monocytes Absolute Auto 500 /uL (0-900); Monocytes Percent Auto 8.7 % (3-14); Neutrophils Absolute Auto 4300 /uL (1500-7000); Neutrophils Percent Auto 81.7 % (50-75); Platelet Count 222 X10^3/uL (150-400); Prothrombin Time 14.4 SECONDS (10.1-12.7); Red Blood Cell Count 3.11 X10^6/uL (4.5-5.9); Red Cell Distribution Width 16.2 % (11.6-14.8); White Blood Cell Count 5.3 X10^3/uL (4.5-11.0)
[2021-07-17 06:21] LABS: PTT Partial Thromboplastin Tim 29 SECONDS (26.4-36.2)
[2021-07-17 06:27] LABS: Alanine Aminotransferase 24 IU/L (<50); Albumin 3.3 g/dL (3.5-5.0); Albumin Globulin Ratio 1.2 (1.0-2.8); Alkaline Phosphatase 61 U/L (38-126); Aspartate Aminotransferase 22 IU/L (17-59); BUN Creatinine Ratio 31.8 (6-22); Bilirubin Total 0.5 mg/dL (0.2-1.3); Blood Urea Nitrogen 56 mg/dL (9-20); Calcium 8.6 mg/dL (8.4-10.2); Carbon Dioxide 20 mmol/L (22-32); Chloride 105 mmol/L (98-107); Globulin 2.8 g/dL (1.7-4.1); Glucose 203 mg/dL (80-110); HEMOLYSIS < 15 (0-50); Sodium 134 mmol/L (137-145); Total Protein 6.1 g/dL (6.3-8.2)
[2021-07-17 06:35] LABS: NT-proBNP (BNP-Adult 18+) 5230 pg/mL (<450)
[2021-07-17 06:37] LABS: Troponin I 0.016 ng/mL (0.01-0.034)
[2021-07-17 07:08] LABS: Thyroid Stimulating Hormone 2.38 uIU/mL (0.47-4.68)
[2021-07-17] MEDS: INSULIN LISPRO 100 UNIT/ML 3ML VIAL SUBCUT ×4 (08:20→21:30)
[2021-07-17] MEDS: ACETAMINOPHEN 325 MG TABLET 650 MG PO (08:28)
[2021-07-17] MEDS: DOCUSATE 100 MG CAPSULE PO ×2 (08:29→21:28)
[2021-07-17] MEDS: carvediloL 12.5 MG TABLET 6.25 MG PO ×2 (08:29→21:27)
[2021-07-17] MEDS: VENLAFAXINE ER 75 MG CAP PO (08:29)
[2021-07-17] MEDS: APIXABAN 5 MG TABLET 2.5 MG PO ×2 (08:30→21:25)
[2021-07-17] MEDS: INSULIN GLARGINE 100 UNIT/ML 3ML PEN 18 UNIT SUBCUT (10:15)
[2021-07-17] MEDS: IPRATROPIUM 0.5 MG/2.5 ML NEB INH ×3 (11:20→19:27)
--- NOTE | 2021-07-17 12:05 | PT.IIE ---
Medical History (Last Reviewed 07/16/21 @ 23:50 by Wanda Davis [facility]) Age related osteoporosis Alzheimer's dementia Arthritis of right hip Cataract Congestive heart failure (CHF) COPD (chronic obstructive pulmonary disease) Diabetes type 2, controlled Hard of hearing Hyperlipemia Hypertension Umbilical hernia Physical Therapy Inpatient Evaluation/Re-Eval M1 PT/OT-IP Prior Functional Status Start: 07/17/21 13:38 Freq: NEEDED Status: Active Protocol: Document 07/17/21 12:05 AB (Rec: 07/17/21 13:52 AB [email or web address]) Medical Review Prior Functional Status Medical History Reviewed Yes Communication very [place]; has dx Alzheimer's dementia and unable to provide much information regarding home set up and PLOF Mobility and Gait stated that he is modified independent with ambulation using a 4WW, stated that he is able to get in and out of the bed by himself, use the toilet, shower and get dressed without assistance Social History Living Arrangements Assisted Living Home Equipment Four Wheel Walker M2 PT-IP Current Condition Start: 07/17/21 13:38 Freq: NEEDED Status: Active Protocol: Document 07/17/21 12:05 AB (Rec: 07/17/21 13:52 [email or web address]) Physical Therapy Current Condition Current Condition Evaluation Date 07/17/21 Treatment Diagnosis GLF s/o R humeral fx; CHF; syncope; difficulty in walking Onset Date 07/16/21 Precautions Shoulder Precautions Sling Weight Bearing Status Weight Bearing Status Non-Weight Bearing Allowed Weight Bearing Amount (enter % RUE NWB or #) (%) M3 PT-IP Subjective Start: 07/17/21 13:38 Freq: NEEDED Status: Active Protocol: Document 07/17/21 12:05 AB (Rec: 07/17/21 13:52 [email or web address]) Subjective Physical Therapy Visit Type Type Initial Evaluation Visit Start Time 12:05 Visit Stop Time 12:40 Total Visit Minutes 35 Number of TOE PUNCHER Visits 0 Physical Therapy Visit Comments Patient Comments agreed to get out of bed Therapy Pain Assessment Pain When Pain Assessed At Rest Pain Present Pain Present Pain Reported Location Right Shoulder Scale Used pain scale not stated Pain Behaviors Guarding,Holding Area Pain Management Techniques Apply Cold,Distraction, Modification of Treatment,Re- positioning,Timing of Activity with Medications M4 PT-IP Mobility and Gait Start: 07/17/21 13:38 Freq: NEEDED Status: Active Protocol: Document 07/17/21 12:05 AB (Rec: 07/17/21 13:52 AB [email or web address]) PT-Bed Mobility Assessment Supine to Sit Supine to Sit Maximum Assistance,1 Person Assistance,2 Person Assistance ,Head of Bed Elevated Scooting Scooting to Edge of Bed Dependent PT-Transfer Assessment Sit to and From Stand Sit to and from Stand Moderate Assistance,Maximum Assistance,2 Person Assistance ,Use of Upper Extremities Equipment Transfer Assistive Device Large Based Quad Cane Orthotic/Prosthetic Devices or Brace: Yes Transfers Transfer Destination Chair Transfer Technique Stand Step Pivot Transfer Ability Level of Assist Moderate Assistance,Maximum Assistance,2 Person Assistance ,Use of Upper Extremities Comments Mobility Comments educated on weight bearing restriction on RUE and use of sling. completed supine to sit HOB elevated max A x 1-2 and max cues. required 2 attempts to complete the task. c/o increase R shoulder pain . pt required mod to max A for sitting balance on EOB with increase posterior trunk lean and lateral leaning to the R. positioned pt and used rail to support. adjusted sling on pt. completed sit to stand mod x 2 to max A x 2 and max cues and completed step transfer using quad cane mod x2 to max A x 2 and max cues. c/o increase shoulder pain and unable to do more activity . positioned pt on chair. call light and table placed within reach. ice pack provided. chair alarm on. Gait Assessment Comments Gait Comments unable at this time PT-Balance Assessment Sitting Balance and Reactions Static Sitting Balance Ability Poor Dynamic Sitting Balance Ability Poor Standing Balance and Reactions Static Standing Balance Ability Poor Dynamic Standing Balance Ability Poor Device Used FWW M5 PT-IP Objective Assessments Start: 07/17/21 13:38 Freq: NEEDED Status: Active Protocol: Document 07/17/21 12:05 AB (Rec: 07/17/21 13:52 AB [email or web address]) Orientation Orientation/Cognition Level of Alertness Confusional State Orientation Name Language Function Ability Hard of Hearing Safety Awareness Decreased Safety Awareness Memory Description Short Term Impaired Gross Range of Motion Lower Extremity ROM Assessment Within Functional Limits Strength Lower Extremity Strength Assessment Bilaterally Impaired Hip 3+/5 Knee 4-/5 Muscle Tone Muscle Tone WNL Yes M6 PT-IP Treatment Start: 07/17/21 13:38 Freq: NEEDED Status: Active Protocol: Document 07/17/21 12:05 AB (Rec: 07/17/21 13:52 AB [email or web address]) Physical Therapy Treatment Education Education Provided Precautions,Weight Bearing Status,Safety M7 PT-IP Assessment and Plan Start: 07/17/21 13:38 Freq: NEEDED Status: Active Protocol: Document 07/17/21 12:05 AB (Rec: 07/17/21 13:52 AB [email or web address]) PT Summary Assessment and Plan Potential Rehabilitation Potential Fair Status of Condition at Evaluation Evolving Summary Impairments Pain,ROM,Strength,Balance, Coordination,Sensation,Tone, Cognition,Bed Mobility, Transfers,Gait,Activity Tolerance Assessment Summary pt requiring mod x 2 to max A x 2 with all mobilities and unable to ambulate at this time. Has difficulty following instructions and has decrease safety awareness. pt will require SNF rehab a this time to improve mobility and independence. Goals Bed Mobility Goal Standby Assistance Transfer Goal Standby Assistance,Cane Gait Goal Standby Assistance,Cane Gait Distance 100 Days to Meet Goals 10 Frequency of Treatment Frequency Of Treatment Twice a Day Treatment Plan Physical Therapy Treatment Plan Bed Mobility Training,Transfer Training,Gait Training, Therapeutic Exercise,Balance Retraining,Discharge Planning, Hot or Cold Pack,Neuromuscular Re-ed,Coordination Retraining Precautions Shoulder Precautions Sling Other Precautions falls, RUE NWB Recommendations To Nursing Amount of Assist Needed 2 Person Assist Discharge Recommendations PT Discharge Recommendations SNF Rehab Transportation Needs at Discharge Wheelchair/Cabulance
--- NOTE | 2021-07-17 14:25 | PT.IPTN ---
Physical Therapy Treatment Note M2 PT-IP Current Condition Start: 07/17/21 13:38 Freq: NEEDED Status: Active Protocol: Document 07/17/21 12:05 AB (Rec: 07/17/21 13:52 AB [email or web address]) Physical Therapy Current Condition Current Condition Evaluation Date 07/17/21 Treatment Diagnosis GLF s/o R humeral fx; CHF; syncope; difficulty in walking Onset Date 07/16/21 Precautions Shoulder Precautions Sling Weight Bearing Status Weight Bearing Status Non-Weight Bearing Allowed Weight Bearing Amount (enter % RUE NWB or #) (%) M3 PT-IP Subjective Start: 07/17/21 13:38 Freq: NEEDED Status: Active Protocol: Document 07/17/21 14:25 AB (Rec: 07/17/21 16:19 AB [email or web address]) Subjective Physical Therapy Visit Type Type Treatment Note Visit Start Time 14:25 Visit Stop Time 14:45 Total Visit Minutes 20 Number of FORENSIC STRUCTURAL ENGINEER Visits 0 Therapy Pain Assessment Pain When Pain Assessed At Rest Pain Present Pain Present Pain Reported Location Right Shoulder Scale Used pain scale not stated Pain Management Techniques Distraction,Modification of Treatment,Re-positioning, Timing of Activity with Medications M4 PT-IP Mobility and Gait Start: 07/17/21 13:38 Freq: NEEDED Status: Active Protocol: Document 07/17/21 14:25 AB (Rec: 07/17/21 16:19 AB [email or web address]) PT-Bed Mobility Assessment Sit to Supine Sit to Supine Maximum Assistance,2 Person Assistance PT-Transfer Assessment Sit to and From Stand Sit to and from Stand Maximum Assistance,2 Person Assistance,Use of Upper Extremities Equipment Transfer Assistive Device Large Based Quad Cane Orthotic/Prosthetic Devices or Brace: Yes Transfers Transfer Destination Chair Transfer Technique Stand Step Pivot Transfer Ability Level of Assist Maximum Assistance,2 Person Assistance,Use of Upper Extremities Comments Mobility Comments NAC in room to assist. attempted to position brief prior to standing but pt refused. stated that he has to pull the old one out first. pt completed sit to stand max A x 2 and max cues. pt was trying to use RUE to hold on the quad cane and educated on RUE weight bearing restriction . required max A for standing balance using quad cane while assisted with hygiene care. instructed pt to sit down to be able to put a new brief on but stated that he can do it in standing. educated pt on safety but unable to comprehend and insisted on standing on one leg to put brief on. attempted with PT providing max A and NAC assisting with brief management. pt unable and then agreed to sit down to manage brief. assisted with brief management max A x2 for sit to stand and max A for maintaining standing balance using quad cane for support. asked if pt can ambulate with PT but pt refused and requested to go back to bed and completed step transfer to bed using quad cane max A x 2 and max cues. completed sit to supine max A x 2 and max cues. positioned pt on the bed. call light and table placed within reach. Gait Assessment Comments Gait Comments pt refused M5 PT-IP Objective Assessments Start: 07/17/21 13:38 Freq: NEEDED Status: Active Protocol: Document 07/17/21 12:05 AB (Rec: 07/17/21 13:52 AB [email or web address]) Orientation Orientation/Cognition Level of Alertness Confusional State Orientation Name Language Function Ability Hard of Hearing Safety Awareness Decreased Safety Awareness Memory Description Short Term Impaired Gross Range of Motion Lower Extremity ROM Assessment Within Functional Limits Strength Lower Extremity Strength Assessment Bilaterally Impaired Hip 3+/5 Knee 4-/5 Muscle Tone Muscle Tone WNL Yes M6 PT-IP Treatment Start: 07/17/21 13:38 Freq: NEEDED Status: Active Protocol: Document 07/17/21 14:25 AB (Rec: 07/17/21 16:19 AB [email or web address]) Physical Therapy Treatment Education Education Provided Precautions,Weight Bearing Status,Safety M7 PT-IP Assessment and Plan Start: 07/17/21 13:38 Freq: NEEDED Status: Active Protocol: Document 07/17/21 14:25 AB (Rec: 07/17/21 16:19 AB [email or web address]) PT Summary Assessment and Plan Potential Rehabilitation Potential Fair Summary Impairments Pain,ROM,Strength,Balance, Coordination,Sensation,Tone, Cognition,Bed Mobility, Transfers,Gait,Activity Tolerance Progress Towards Goals Slow Progress due to Medical Issues,Slow Progress due to Activity Tolerance,Slow Progress - Other Assessment Summary pt requiring max A x 2 with mobility and max cues with all tasks. pt has poor safety awareness affecting mobility independence and is a high fall risk. pt will require SNF rehab to improve strength and mobility. Goals Bed Mobility Goal Standby Assistance Transfer Goal Standby Assistance,Cane Gait Goal Standby Assistance,Cane Gait Distance 100 Days to Meet Goals 10 Frequency of Treatment Frequency Of Treatment Twice a Day Treatment Plan Physical Therapy Treatment Plan Bed Mobility Training,Transfer Training,Gait Training, Therapeutic Exercise,Balance Retraining,Discharge Planning, Hot or Cold Pack,Neuromuscular Re-ed,Coordination Retraining Precautions Shoulder Precautions Sling Other Precautions falls, RUE NWB Recommendations To Nursing Amount of Assist Needed 2 Person Assist Discharge Recommendations PT Discharge Recommendations SNF Rehab Transportation Needs at Discharge Wheelchair/Cabulance
--- NOTE | 2021-07-17 16:07 | CM.IDA ---
Initial DCP Assessment Note Pt is an 86 yo male, resident of [facility] in [place] (since Sep 2020). Patient, w/Alzheimer's dementia, Presents after a GLF, w/subsequent broken shoulder. Patient is walker dependent for ambulation at his [facility]. PT currently recommending SNF. PCP: María Esteban Payer: [facility] Reviewed chart, pt discussed in multidisciplinary rounds this morning. Patient is not expected to need a surgical repair and is currently in observation status. Case has been sent to EHR for additional status review. Met w/patient's dtr Gerald this afternoon, introduced role. Patient sitting up in chair, not A+O. Patient was living w/Gerald and her spouse up until last September when they secured a spot at [facility]. Patient's needs outweighed dtr's capabilities at home. Patient ambulates w/ FWW, is able to complete most ADLs independently according to Dtr. Gerald states patient is easily redirectable and staff assist w/meals, chores, meds and bathing assist as needed. Patient had qualified for [facility] program a year ago but dtr could not find an accepting [facility] facility. Patient pays for his current [facility] partly w/nursing home funds, aid and assistance [facility] from [facility] and w/family funds. Reviewed current observation status and it's correlation with [facility] SNF benefit; dtr Gerald states concern as neither patient or family have the funds at this time to pay out of pocket for SNF stay. Patient is retired [place] and has received medical care [place] the [place] [place] on [facility], dtr unsure if patient is service connected. This EDGING MACHINE SETTER suggested CM next steps as: contact w/YAZMIN SWer in case patient has a [facility] SNF benefit (patient needs to be 100% service connected) and contact w/Neelam at [facility] to review care giving capabilities at [facility] P# [phone] Following closely. MARY Grimes Discharge Planning/Care Management CM Discharge Assessment Start: 07/17/21 16:03 Freq: Status: Active Protocol: Document 07/17/21 16:03 ELIANA (Rec: 07/17/21 16:07 ELIANA [id number]) Discharge Planning Assessment Assigned Fx Artist MARY Betancur DPLORE/Assigned Designee Name Gerald Malloy, dtr/DPOA Contact Information [phone] Advance Directives? Yes: POLST Advance Directives on File No History Provided By Family Member,Medical Record Prior Living Arrangements Assisted Living Comment [facility], [place] Type of transporation used prior to Relies on Others admit Facility Name Admitted From: [facility] Willing to Return to Facility? Yes Independent with ADL's No Is patient alert and oriented? No Needs Assistance With Bathing,Meal Prep,Managing Medications,Home Chores / Shopping Comment Bathing as needed, dtr states he mostly does bathing/ toileting on his own Community Services used prior to Home Health Nurse admission: Comment cande Patient/Family Preference Shelter Facility,Home with Home Health Comment Patient/family do not have the funds to pay out of pocket for SNF stay, patient is currently observation status Barriers to Discharge Yes Comment Patient requires rehab stay at this time, observation status prohibits access to [facility] SNF benefit Medicare Choice List Provided Yes SNF/HH Preference [facility] if [facility] A pays. Will chk [place] benefit in case service connected and can use [place] benefit Whiteboard Updated in Patient Room with Yes name and ext. # of Fx Artist Review Status In Process
--- NOTE | 2021-07-17 16:45 | OT.IPNOTE ---
Attempted to see pt for OT eval and pt states just got up earlier with PT and not wanting to get up again and preferring to stay in bed for dinner. To check on pt tomorrow for OT eval.
--- NOTE | 2021-07-17 17:41 | PM.CN ---
History of Present Illness Consult details Date Patient Seen: 07/17/21 Time Patient Seen: 17:41 Chief complaint: GLF Rt. Shoulder pain Reason for consult: Right proximal humeral shaft fracture Narrative: The patient is complaining of mild right upper extremity pain after ground level fall. He has somewhat of a poor historian due to his Alzheimer's disease. He notes his pain is currently well managed with current pain regimen. Meds Home Medications and Allergies Home Medications Medication Instructions Recorded Confirmed Type albuterol sulfate 90 mcg/actuation 2 puff INHALATION Q4H PRN 11/23/19 07/16/21 History aerosol inhaler (ProAir HFA) carvedilol 12.5 mg tablet 6.25 mg PO BID 11/23/19 07/16/21 History insulin glargine 100 unit/mL 18 unit SUBCUT DAILY 11/23/19 07/16/21 History subcutaneous solution (Lantus U-100 Insulin) melatonin 3 mg tablet 3 mg PO BEDTIME PRN 11/23/19 07/16/21 History apixaban 2.5 mg tablet (Eliquis) 2.5 mg PO BID 07/16/21 07/16/21 History cholecalciferol (vitamin D3) 125 125 mcg PO DAILY 07/16/21 07/16/21 History mcg (5,000 unit) tablet (Vitamin D3) folic acid 800 mcg tablet 0.8 mg PO DAILY 07/16/21 07/16/21 History furosemide 40 mg tablet 40 mg PO DAILY 07/16/21 07/16/21 History methotrexate sodium 2.5 mg tablet 10 mg PO QWEEK 07/16/21 07/16/21 History spironolactone 25 mg tablet 12.5 mg PO DAILY 07/16/21 07/16/21 History tiotropium bromide 18 mcg capsule 18 mcg INHALATION DAILY 07/16/21 07/16/21 History with inhalation device (Spiriva with HandiHaler) venlafaxine 75 mg capsule,extended 75 mg PO DAILY 07/16/21 07/16/21 History release 24 hr Allergies Allergy/AdvReac Type Severity Reaction Status Date / Time No Known Drug Allergies Allergy Verified 11/23/19 18:42 Exam Vital Signs (past 8 hours): - 07/17/21 10:00 07/17/21 10:52 07/17/21 11:23 Temperature Pulse Rate Respiratory Rate Blood Pressure Pulse Oximetry 98 90 L 92 07/17/21 11:54 07/17/21 12:56 07/17/21 15:10 Temperature 96.7 F L 97.3 F L Pulse Rate 72 80 Respiratory Rate 20 20 Blood Pressure 121/61 143/79 H Pulse Oximetry 92 95 92 07/17/21 15:41 07/17/21 15:43 Temperature Pulse Rate 86 Respiratory Rate 18 Blood Pressure Pulse Oximetry 92 92 Oxygen Delivery Method Room Air Oxygen Flow Rate 0 Narrative Exam Narrative: Pleasant 86-year-old male, resting comfortably in bed, with a sling in place in his right upper extremity. Gross motor function is intact in bilateral upper extremities gross sensation is intact in bilateral upper extremities. He is tender over the proximal humerus. Patient remains in a sling. Objective Labs Result Diagrams: 07/17/21 05:35 07/17/21 05:35 Labs: Laboratory Results - last 24 hr 07/16/21 07/16/21 07/16/21 20:15 20:15 20:15 WBC RBC Hgb Hct MCV MCH MCHC RDW Plt Count Neut % (Auto) Lymph % (Auto) [place] % (Auto) Eos % (Auto) Baso % (Auto) Neut # (Auto) Lymph # (Auto) [place] # (Auto) Eos # (Auto) Baso # (Auto) PT INR APTT Sodium Potassium Chloride Carbon Dioxide BUN Creatinine Estimated GFR BUN/Creatinine Ratio Glucose Hemoglobin A1c 7.5 H Calcium Magnesium 1.9 Total Bilirubin AST ALT Alkaline Phosphatase Troponin I NT-Pro-B Natriuret Pep 4100 H Total Protein Albumin Globulin Albumin/Globulin Ratio [facility] 07/16/21 07/17/21 07/17/21 20:15 05:35 05:35 WBC 5.3 RBC 3.11 L Hgb 10.6 L Hct 31.8 L MCV 102.3 H MCH 34.0 MCHC 33.3 RDW 16.2 H Plt Count 222 Neut % (Auto) 81.7 H Lymph % (Auto) 6.8 L [place] % (Auto) 8.7 Eos % (Auto) 2.5 Baso % (Auto) 0.3 Neut # (Auto) 4300 Lymph # (Auto) 400 L [place] # (Auto) 500 Eos # (Auto) 100 Baso # (Auto) 0 PT INR APTT Cancelled Sodium Potassium Chloride Carbon Dioxide BUN Creatinine Estimated GFR BUN/Creatinine Ratio Glucose Hemoglobin A1c Calcium Magnesium Total Bilirubin AST ALT Alkaline Phosphatase Troponin I 0.016 NT-Pro-B Natriuret Pep Total Protein Albumin Globulin Albumin/Globulin Ratio TSH 07/17/21 07/17/21 07/17/21 05:35 05:35 05:35 WBC RBC Hgb Hct MCV MCH MCHC RDW Plt Count Neut % (Auto) Lymph % (Auto) [place] % (Auto) Eos % (Auto) Baso % (Auto) Neut # (Auto) Lymph # (Auto) [place] # (Auto) Eos # (Auto) Baso # (Auto) PT 14.4 H INR 1.3 APTT 29 Sodium 134 L Potassium 5.0 Chloride 105 Carbon Dioxide 20 L BUN 56 H Creatinine 1.76 H Estimated GFR 37.0 L BUN/Creatinine Ratio 31.8 H Glucose 203 H Hemoglobin A1c Calcium 8.6 Magnesium Total Bilirubin 0.5 AST 22 ALT 24 Alkaline Phosphatase 61 Troponin I 0.016 NT-Pro-B Natriuret Pep 5230 H Total Protein 6.1 L Albumin 3.3 L Globulin 2.8 Albumin/Globulin Ratio 1.2 TSH 07/17/21 05:35 WBC RBC Hgb Hct MCV MCH MCHC RDW Plt Count Neut % (Auto) Lymph % (Auto) [place] % (Auto) Eos % (Auto) Baso % (Auto) Neut # (Auto) Lymph # (Auto) [place] # (Auto) Eos # (Auto) Baso # (Auto) PT INR APTT Sodium Potassium Chloride Carbon Dioxide BUN Creatinine Estimated GFR BUN/Creatinine Ratio Glucose Hemoglobin A1c Calcium Magnesium Total Bilirubin AST ALT Alkaline Phosphatase Troponin I NT-Pro-B Natriuret Pep Total Protein Albumin Globulin Albumin/Globulin Ratio TSH 2.38 Assessment & Plan Assessment & Plan narrative: Right proximal humerus humeral shaft fracture, minimally displaced. Planning non operative treatment at this time, patient will remain in a sling and will ambulate as tolerated. Follow up with a ortho PA in 1 week after discharge. Mobilize with PT/OT and continue with pain management.
--- NOTE | 2021-07-17 20:04 | P.PN_ITS ---
Subjective Subjective Date Patient Seen: 07/17/21 Time Patient Seen: 17:30 Interval history: Mr. Tj Bull is an 84-year-old male with past medical history of dementia, remote bullous pemphigoid, COPD, diabetes, hypertension, hyperlipidemia,CHF admitted with syncopal episode, concerning for possible ACS or cardiac cause given presentation and EKG abnormalities that were transient per ER provider. He denies complaints today other than shoulder pain. Has had multiple episodes of NSVT on telemetry, but asymptomatic thus far and nothing sustained. Exam Vital Signs (past 8 hours): - 07/17/21 12:56 07/17/21 15:10 07/17/21 15:41 Temperature 96.7 F L 97.3 F L Pulse Rate 72 80 86 Respiratory Rate 20 20 18 Blood Pressure 121/61 143/79 H Pulse Oximetry 95 92 92 07/17/21 15:43 07/17/21 19:30 Temperature Pulse Rate 78 Respiratory Rate 20 Blood Pressure Pulse Oximetry 92 92 Oxygen Delivery Method Room Air Oxygen Flow Rate 0 Narrative Exam Narrative: General: Patient is a well-developed, well-nourished male in no distress at this time. HEENT: Normocephalic, atraumatic, extraocular muscles intact, oral pharynx is clear and mucous membranes are moist. Neck is supple and symmetric, trachea is midline, no adenopathy, no thyroid enlargement, nontender, no masses palpated. Negative for JVD Chest: Normal AP diameter and contour without kyphoscoliosis, no nasal flaring, retractions, or tachypneic labored Lungs: Auscultation of all lung pena are clear without adventitious sounds, wheezes, rhonchi, or rales. Cardio: S1 & S2 with regular rate and rhythm without murmur, rubs, or gallops, no carotid bruit, no cardiac pulsations present. Abdomen: Soft nontender, negative for organomegaly, or masses. Bowel sounds are present in all 4 quadrants without guarding or rebound, no CVA tenderness. Musculoskeletal: Right Arm in sling-right radial pulse intact, cap refill WNL, warm to touch good circulation. Muscle strength and tone are equal within normal limits, no deformity, crepitus, effusions, cyanosis, clubbing or edema present. Full range of motion intact radial and pedal pulses are normal. Skin: Warm dry and intact without rashes, ulcerations or petechiae. Neuro: Alert and orientated x1 to person, strength is +5/5 in all extremities, sensation to touch intact, no gross deficits noted of cranial nerves. Psych: Patient has a well-kept appearance, appropriate affect. Objective Labs Result Diagrams: 07/17/21 05:35 07/17/21 05:35 Labs: Laboratory Results - last 24 hr 07/16/21 07/16/21 07/16/21 20:15 20:15 20:15 WBC RBC Hgb Hct MCV MCH MCHC RDW Plt Count Neut % (Auto) Lymph % (Auto) [place] % (Auto) Eos % (Auto) Baso % (Auto) Neut # (Auto) Lymph # (Auto) [place] # (Auto) Eos # (Auto) Baso # (Auto) PT INR APTT Sodium Potassium Chloride Carbon Dioxide BUN Creatinine Estimated GFR BUN/Creatinine Ratio Glucose Hemoglobin A1c 7.5 H Calcium Magnesium 1.9 Total Bilirubin AST ALT Alkaline Phosphatase Troponin I NT-Pro-B Natriuret Pep 4100 H Total Protein Albumin Globulin Albumin/Globulin Ratio TSH 07/16/21 07/17/21 07/17/21 20:15 05:35 05:35 WBC 5.3 RBC 3.11 L Hgb 10.6 L Hct 31.8 L MCV 102.3 H MCH 34.0 MCHC 33.3 RDW 16.2 H Plt Count 222 Neut % (Auto) 81.7 H Lymph % (Auto) 6.8 L [place] % (Auto) 8.7 Eos % (Auto) 2.5 Baso % (Auto) 0.3 Neut # (Auto) 4300 Lymph # (Auto) 400 L [place] # (Auto) 500 Eos # (Auto) 100 Baso # (Auto) 0 PT INR APTT Cancelled Sodium Potassium Chloride Carbon Dioxide BUN Creatinine Estimated GFR BUN/Creatinine Ratio Glucose Hemoglobin A1c Calcium Magnesium Total Bilirubin AST ALT Alkaline Phosphatase Troponin I 0.016 NT-Pro-B Natriuret Pep Total Protein Albumin Globulin Albumin/Globulin Ratio TSH 07/17/21 07/17/21 07/17/21 05:35 05:35 05:35 WBC RBC Hgb Hct MCV MCH MCHC RDW Plt Count Neut % (Auto) Lymph % (Auto) [place] % (Auto) Eos % (Auto) Baso % (Auto) Neut # (Auto) Lymph # (Auto) [place] # (Auto) Eos # (Auto) Baso # (Auto) PT 14.4 H INR 1.3 APTT 29 Sodium 134 L Potassium 5.0 Chloride 105 Carbon Dioxide 20 L BUN 56 H Creatinine 1.76 H Estimated GFR 37.0 L BUN/Creatinine Ratio 31.8 H Glucose 203 H Hemoglobin A1c Calcium 8.6 Magnesium Total Bilirubin 0.5 AST 22 ALT 24 Alkaline Phosphatase 61 Troponin I 0.016 NT-Pro-B Natriuret Pep 5230 H Total Protein 6.1 L Albumin 3.3 L Globulin 2.8 Albumin/Globulin Ratio 1.2 TSH 07/17/21 05:35 WBC RBC Hgb Hct MCV MCH MCHC RDW Plt Count Neut % (Auto) Lymph % (Auto) [place] % (Auto) Eos % (Auto) Baso % (Auto) Neut # (Auto) Lymph # (Auto) [place] # (Auto) Eos # (Auto) Baso # (Auto) PT INR APTT Sodium Potassium Chloride Carbon Dioxide BUN Creatinine Estimated GFR BUN/Creatinine Ratio Glucose Hemoglobin A1c Calcium Magnesium Total Bilirubin AST ALT Alkaline Phosphatase Troponin I NT-Pro-B Natriuret Pep Total Protein Albumin Globulin Albumin/Globulin Ratio [facility]SH [facility].38 [facility] Medical History Age related osteoporosis Alzheimer's dementia Arthritis of right hip Cataract Congestive heart failure (CHF) COPD (chronic obstructive pulmonary disease) Diabetes type 2, controlled Hard of hearing Hyperlipemia Hypertension Umbilical hernia Social History household members: family Smoking Status: Former smoker alcohol intake: never Assessment & Plan Assessment & Plan narrative: Mr. Tj Bull is an 86-year-old male with past medical history of Alzheimer's dementia, remote bullous pemphigoid, COPD, diabetes, hypertension, and CHF who presented to the emergency room with witnessed syncopal episode possibly x2 of unknown etiology, but concerning given initial EKG changes for possible ACS or cardiac arrythmia as well as syncopal episode leading to dispalced humeral shaft fracture. 1. Witnessed syncopal episode of unknown etiology, precipitating mechanical ground level fall, resulting in displaced right proximal humeral shaft pathologic fracture, in the setting of age-related osteoporosis, acute on chronic, present on admission -Right shoulder x-ray demonstrated acute minimally displaced right proximal humeral shaft fracture. -patient's right arm was slinged in the ED. -pain and inflammation management -appreciate orthopedic surgery consultation. -PT and OT consultations. -strict fall precautions -patient has a right arm fracture, normally ambulates with a walker, and lives in assisted living without medical support. He requires a significant amount of assistance given fracture compared to his baseline. 2. Syncopal episode of unknown etiology, possibly due to non-symptomatic ST elevation Myocardial infarction or STEMI, in the setting of systolic heart failure EF 35-40%, essential HTN, acute on chronic, present on admission -initial EKG concerning for STEMI, however resolved on repeat tracing. However suspect syncope was related to some cardiac event whether it be ACS or possible arrythmia. He has had multiple episodes of NSVT on telemetry so far. -patient and daughter JOSIE both refused transfer for cardiac catheterization, agreed only to medication interventions, DNR/DNI. -patient was and remains asymptomatic of acute STEMI symptoms, patient continues to demonstrate no chest pain, shortness of breath, diaphoresis, hemodynamic instability, agitation, troponins trended x3: 0.017, 0.016, 0.016. -patient was given 325 ASA, heparin bolus and placed on heparin drip in the ED. 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 -no signs of volume overload currently. -TTE completed today without overt changes compared to baseline. -continue home Eliquis 2.5 mg b.i.d., carvedilol 6.25 mg b.i.d. -recommend outpatient Cardiology follow-up, possible Holter monitor if no events found. 3. ckd3 - renally dose medications. Continue to monitor creatinine. 4. Mild anemia of unknown etiology, chronic, present on admission -hemoglobin at 10.8, HCT 31.9, MCV 102. -patient's hemoglobin is normally low between 12-11 since November 2019 5. COPD, chronic, stable, present on admission -continue home Spiriva, and as needed albuterol 6. Alzheimer's dementia, acute on chronic, present on admission -continue patient's venlafaxine 7. type 2 insulin dependent diabetes, chronic - continue home medications. 8. obesity with BMI 31.7 - puts patient at risk for adverse cardiac outcomes, contributes towards patient's DM, HLD, and other chronic conditions. 9. hld, acute on chronic continue home medications. Code Status : DNR Surrogate decision maker: Patient's daughter Gerald Hester PCR: Negative COVID vaccination: Patient is fully vaccinated DVT/VTE prophylaxis: Patient to continue Eliquis and SCDs Dispo: recommended for SNF, will continue to work on placement. ready in 1-2 more days. Quality VTE Deep Vein Thrombosis/Pulmonary Embolism Present on Admission: No
[2021-07-17] MEDS: SENNOSIDES 8.6 MG TABLET 17.2 MG PO (21:28)
[2021-07-18] VITALS (15 sets, daily range): BP systolic 105–161; BP diastolic 51–95; PULSE 80–97; RESP 16–20; TEMP 35.6–36.5; O2SAT 91–95
[2021-07-18] MEDS: ACETAMINOPHEN 325 MG TABLET 650 MG PO ×2 (02:29→08:54)
[2021-07-18 04:58] LABS: Bacteria Urine None Seen
[2021-07-18 05:42] LABS: Appearance Urine UA CLEAR; Bilirubin Urine UA NEGATIVE (NEGATIVE); Color Urine UA YELLOW; Glucose Urine UA TRACE g/dL (Negative); Ketones Urine UA NEGATIVE (NEGATIVE); Leukocyte Esterase Urine UA NEGATIVE (NEGATIVE); Nitrite Urine UA NEGATIVE (Negative); Occult Blood Urine UA NEGATIVE (Negative); Protein Urine UA NEGATIVE (Negative); Urobilinogen Urine UA 0.2 E.U./dL (0.2)
[2021-07-18 05:50] LABS: Add Manual Diff / Slide Review NO; Basophils Absolute Auto 0 /uL (0-100); Basophils Percent Auto 0.2 % (0-2); Eosinophils Absolute Auto 400 /uL (0-450); Eosinophils Percent Auto 5.3 % (2-4); Hematocrit 31.4 % (41-53); Hemoglobin 10.8 g/dL (13.5-17.5); Lymphocytes Absolute Auto 1200 /uL (1100-4500); Mean Corpuscular HGB Conc 34.5 % (30-36); Mean Corpuscular Hemoglobin 35.5 PG (26-34); Mean Corpuscular Volume 102.8 fL (80-100); Monocytes Absolute Auto 800 /uL (0-900); Neutrophils Absolute Auto 4400 /uL (1500-7000); Neutrophils Percent Auto 64.5 % (50-75); Platelet Count 192 X10^3/uL (150-400); Red Blood Cell Count 3.05 X10^6/uL (4.5-5.9); Red Cell Distribution Width 16.7 % (11.6-14.8); White Blood Cell Count 6.9 X10^3/uL (4.5-11.0)
[2021-07-18 06:09] LABS: Alanine Aminotransferase 19 IU/L (<50); Albumin 3.3 g/dL (3.5-5.0); Albumin Globulin Ratio 1.2 (1.0-2.8); Alkaline Phosphatase 62 U/L (38-126); Aspartate Aminotransferase 22 IU/L (17-59); BUN Creatinine Ratio 37.4 (6-22); Bilirubin Total 0.4 mg/dL (0.2-1.3); Blood Urea Nitrogen 65 mg/dL (9-20); Calcium 8.5 mg/dL (8.4-10.2); Carbon Dioxide 21 mmol/L (22-32); Chloride 105 mmol/L (98-107); Estimated Glomerular Filt Rate 37.5 mL/min (>60); Globulin 2.7 g/dL (1.7-4.1); Glucose 193 mg/dL (80-110); HEMOLYSIS < 15 (0-50); Potassium 4.6 mmol/L (3.4-5.1); Sodium 135 mmol/L (137-145)
[2021-07-18 06:47] LABS: Culture Indicated Urine Cult Not Indicated; Hyaline Casts Urine 0-1/LPF; RBC Urine 0-1/HPF (0-5/HPF); Squamous Epithelial Cell Urine 0-1 /HPF (0-5/HPF); WBC Urine 0-1/HPF (0-5/HPF)
[2021-07-18] MEDS: INSULIN LISPRO 100 UNIT/ML 3ML VIAL SUBCUT ×3 (08:48→18:58)
[2021-07-18] MEDS: APIXABAN 5 MG TABLET 2.5 MG PO ×2 (08:51→20:04)
[2021-07-18] MEDS: carvediloL 12.5 MG TABLET 6.25 MG PO ×2 (08:52→20:04)
[2021-07-18] MEDS: DOCUSATE 100 MG CAPSULE PO (08:54)
[2021-07-18] MEDS: VENLAFAXINE ER 75 MG CAP PO (08:54)
[2021-07-18] MEDS: INSULIN GLARGINE 100 UNIT/ML 3ML PEN 18 UNIT SUBCUT (08:54)
--- NOTE | 2021-07-18 09:58 | PC.NURSE ---
Patient A/O to self and knows he is in the hospital. Reports RUE pain with repositioning, sling adjusted for comfort and support. VSS, HRR, RUE CMS intact. SCD's on bilaterally. BS active x 4, last BM 07/17. IV saline locked. Patient remains on fluid restriction. Patient is [place]. Call light in reach. Bed alarm on.
--- NOTE | 2021-07-18 10:40 | CM.DPNOTE ---
Addendum entered by MARY Grimes 07/18/21 15:24: Alexi also faxed for review. Original Note: DCP Note Patient has been made inpatient as of time of admission; updated RN [place]. Dtr Gerald not at bedside at this time. Per discussion w/dtr yesterday re: preference for SNF upon DC; Requested KAROL Bacon, send SNF referrals to [facility], [facility] and [facility] Also LM for April at [facility], hopeful to have SNF secured by tomorrow. JW
[2021-07-18] MEDS: IPRATROPIUM 0.5 MG/2.5 ML NEB INH ×3 (11:00→19:38)
--- NOTE | 2021-07-18 11:17 | CM.DPNOTE ---
Addendum entered by Arleen Little 07/18/21 15:07: [facility] and received fax conf. Arleen Little CM Asst. Original Note: Faxed referral packet to [facility], and [facility] and received fax conf at Kadi's request. Emailed to Gu[facility] at [facility]. AYLIN Brewert.
--- NOTE | 2021-07-18 11:56 | P.PN_ITS ---
Subjective Subjective Date Patient Seen: 07/18/21 Time Patient Seen: 11:57 Interval history: The patient is complaining of mild right upper extremity pain. He is currently in a sling and working with physical therapy and occupational therapy. Pain is relatively well controlled with current regimen. He has somewhat of a poor historian due to his Alzheimer's disease. Exam Vital Signs (past 8 hours): - 07/18/21 07:00 07/18/21 08:00 07/18/21 08:52 Temperature 97.1 F L Pulse Rate 86 90 Respiratory Rate 20 Blood Pressure 139/74 139/74 Pulse Oximetry 93 91 07/18/21 11:00 Temperature Pulse Rate 86 Respiratory Rate 18 Blood Pressure Pulse Oximetry 91 Oxygen Delivery Method Room Air Oxygen Flow Rate 0 Narrative Exam Narrative: Pleasant but confused 86-year-old male, resting comfortably in bed, no acute distress. Sling is in place. He is complaining of tenderness at the proximal aspect of the humerus. Gross motor function is intact in bilateral upper extremities. Objective Labs Result Diagrams: 07/18/21 05:28 07/18/21 05:28 Labs: Laboratory Results - last 24 hr 07/18/21 07/18/21 07/18/21 00:30 05:28 05:28 WBC 6.9 RBC 3.05 L Hgb 10.8 L Hct 31.4 L MCV 102.8 H MCH 35.5 H MCHC 34.5 RDW 16.7 H Plt Count 192 Neut % (Auto) 64.5 Lymph % (Auto) 18.0 L [place] % (Auto) 12.0 Eos % (Auto) 5.3 H Baso % (Auto) 0.2 Neut # (Auto) 4400 Lymph # (Auto) 1200 [place] # (Auto) 800 Eos # (Auto) 400 Baso # (Auto) 0 Sodium 135 L Potassium 4.6 Chloride 105 Carbon Dioxide 21 L BUN 65 H Creatinine 1.74 H Estimated GFR 37.5 L BUN/Creatinine Ratio 37.4 H Glucose 193 H Calcium 8.5 Total Bilirubin 0.4 AST 22 ALT 19 Alkaline Phosphatase 62 Total Protein 6.0 L Albumin 3.3 L Globulin 2.7 Albumin/Globulin Ratio 1.2 Urine Color Yellow Urine Appearance Clear Urine pH 5.0 Ur Specific [place] 1.010 Urine Protein Negative Urine Glucose (UA) Trace H Urine Ketones Negative Urine Occult Blood Negative Urine Nitrate Negative Urine Bilirubin Negative Urine Urobilinogen 0.2 Ur Leukocyte Esterase Negative Urine RBC 0-1/hpf Urine WBC 0-1/hpf Ur Squamous Epith Cells 0-1 /hpf Urine Bacteria None seen Hyaline Casts 0-1/lpf Ur Culture Indicated? Cult not indicated PFSH Medical History Age related osteoporosis Alzheimer's dementia Arthritis of right hip Cataract Congestive heart failure (CHF) COPD (chronic obstructive pulmonary disease) Diabetes type 2, controlled Hard of hearing Hyperlipemia Hypertension Umbilical hernia Social History household members: family Smoking Status: Former smoker alcohol intake: never Assessment & Plan Assessment & Plan narrative: Right proximal humerus humeral shaft fracture, minimally displaced. Planning non operative treatment at this time, patient will remain in a sling and will ambulate as tolerated. Follow up with a ortho PA in 1 week after discharge. Mobilize with PT/OT and continue with pain management. Discharge when cleared by hospitalist and PT. Quality VTE Deep Vein Thrombosis/Pulmonary Embolism Present on Admission: No
--- NOTE | 2021-07-18 12:06 | PT.IPTN ---
Physical Therapy Treatment Note M2 PT-IP Current Condition Start: 07/17/21 13:38 Freq: NEEDED Status: Active Protocol: Document 07/17/21 12:05 AB (Rec: 07/17/21 13:52 AB [id number]) Physical Therapy Current Condition Current Condition Evaluation Date 07/17/21 Treatment Diagnosis GLF s/o R humeral fx; CHF; syncope; difficulty in walking Onset Date 07/16/21 Precautions Shoulder Precautions Sling Weight Bearing Status Weight Bearing Status Non-Weight Bearing Allowed Weight Bearing Amount (enter % RUE NWB or #) (%) M3 PT-IP Subjective Start: 07/17/21 13:38 Freq: NEEDED Status: Active Protocol: Document 07/18/21 11:37 CLB (Rec: 07/18/21 15:35 CLB [id number]) Subjective Physical Therapy Visit Type Type Treatment Note Visit Start Time 11:37 Visit Stop Time 12:06 Total Visit Minutes 29 Notes Co-treat with OT Physical Therapy Visit Comments Patient Comments agreed to get out of bed Therapy Pain Assessment Pain When Pain Assessed At Rest Pain Present Pain Present Pain Reported M4 PT-IP Mobility and Gait Start: 07/17/21 13:38 Freq: NEEDED Status: Active Protocol: Document 07/18/21 11:37 CLB (Rec: 07/18/21 15:35 CLB [id number]) PT-Bed Mobility Assessment Supine to Sit Supine to Sit Moderate Assistance,2 Person Assistance,Head of Bed Elevated,Bedrails Scooting Scooting to Edge of Bed Moderate Assistance PT-Transfer Assessment Sit to and From Stand Sit to and from Stand Minimal Assistance,Moderate Assistance,2 Person Assistance ,Use of Upper Extremities Equipment Transfer Assistive Device Large Based Quad Cane Orthotic/Prosthetic Devices or Brace: Yes Transfers Transfer Destination Chair Transfer Technique Stand Step Pivot Transfer Ability Level of Assist Moderate Assistance,2 Person Assistance,Use of Upper Extremities Comments Mobility Comments Pt requiring assist with sling adjustment. Pt requires Mod A x2 for supine to sit with HOB elevated and to scoot to EOB with cues for safety. Pt stood Min A and transferred to chair using stand step pivot. Pt sat Min A with cues for reaching back to chair with LUE. After rest pt stood from chair Mod A and ambulated around bed with chair follow w/WBQC/Mod A x1. Pt sat in chair Mod A for controlled descent. Pt left in chair with chair alarm on and all needs within reach. Gait Assessment Gait Gait Assistance Required: Moderate Assistance,1 Person Assist Distance (Feet) 10 Able to Maintain Weight Bearing Status Yes During Gait Assistive Devices Assistive Device Gait Belt,Large Based Quad Cane Orthotic/Prosthetic Devices or Brace: Yes Gait Deviations General Gait Pattern Decreased Stride Length, Decreased Feet Clearance, Flexed Trunk,Step-to Gait,Wide Based Gait Factors Limiting Gait Function Factors Limiting Gait Function Decreased Activity Tolerance, Decreased Strength,Difficulty Following Directions, Incoordination,Pain,Poor Balance,Poor Safety Awareness Comments Gait Comments Pt with increased pain on RUE during gait. M5 PT-IP Objective Assessments Start: 07/17/21 13:38 Freq: NEEDED Status: Active Protocol: Document 07/17/21 12:05 AB (Rec: 07/17/21 13:52 AB [id number]) Orientation Orientation/Cognition Level of Alertness Confusional State Orientation Name Language Function Ability Hard of Hearing Safety Awareness Decreased Safety Awareness Memory Description Short Term Impaired Gross Range of Motion Lower Extremity ROM Assessment Within Functional Limits Strength Lower Extremity Strength Assessment Bilaterally Impaired Hip 3+/5 Knee 4-/5 Muscle Tone Muscle Tone WNL Yes M6 PT-IP Treatment Start: 07/17/21 13:38 Freq: NEEDED Status: Active Protocol: Document 07/17/21 14:25 AB (Rec: 07/17/21 16:19 AB [id number]) Physical Therapy Treatment Education Education Provided Precautions,Weight Bearing Status,Safety M7 PT-IP Assessment and Plan Start: 07/17/21 13:38 Freq: NEEDED Status: Active Protocol: Document 07/18/21 11:37 CLB (Rec: 07/18/21 15:35 CLB [id number]) PT Summary Assessment and Plan Potential Rehabilitation Potential Fair Summary Impairments Pain,ROM,Strength,Balance, Coordination,Sensation,Tone, Cognition,Bed Mobility, Transfers,Gait,Activity Tolerance Progress Towards Goals Slow Progress due to Medical Issues,Slow Progress due to Activity Tolerance,Slow Progress - Other Assessment Summary Pt requiring Mod A x2 for bed mobility, Min A for sit-stand from bed, Mod A for sit-stand from chair and Mod A for stand to sit to slow descent and cues for reaching back with LUE. Pt able to ambulate Mod A and chair follow using LBQC. Pt with poor safety awareness and impaired balance will require SNF rehab to improve strength and activity tolerance for safe mobility. Goals Bed Mobility Goal Standby Assistance Transfer Goal Standby Assistance,Cane Gait Goal Standby Assistance,Cane Gait Distance 100 Days to Meet Goals 10 Frequency of Treatment Frequency Of Treatment Twice a Day Treatment Plan Physical Therapy Treatment Plan Bed Mobility Training,Transfer Training,Gait Training, Therapeutic Exercise,Balance Retraining,Discharge Planning, Hot or Cold Pack,Neuromuscular Re-ed,Coordination Retraining Precautions Shoulder Precautions Sling Other Precautions falls, RUE NWB Recommendations To Nursing Amount of Assist Needed 2 Person Assist Discharge Recommendations PT Discharge Recommendations SNF Rehab Transportation Needs at Discharge Wheelchair/Cabulance
--- NOTE | 2021-07-18 12:06 | OT.IP.EVAL ---
Past Medical History (Last Reviewed 07/18/21 @ 11:58 by Ronda Guzman PA-C) Age related osteoporosis Alzheimer's dementia Arthritis of right hip Cataract Congestive heart failure (CHF) COPD (chronic obstructive pulmonary disease) Diabetes type 2, controlled Hard of hearing Hyperlipemia Hypertension Umbilical hernia Occupational Therapy Inpatient Evaluation/Re-Eval M1 PT/OT-IP Prior Functional Status Start: 07/17/21 13:38 Freq: NEEDED Status: Active Protocol: Document 07/18/21 11:37 [facility] (Rec: 07/18/21 14:06 [facility] [id number]) Medical Review Prior Functional Status Medical History Reviewed Yes Communication very [place]; has dx Alzheimer's dementia and unable to provide much information regarding home set up and PLOF Mobility and Gait stated that he is modified independent with ambulation using a 4WW, stated that he is able to get in and out of the bed by himself, use the toilet, shower and get dressed without assistance Activities of Daily Living and IADL's Per pt able to do on his own. Social History Household Members family Living Arrangements Assisted Living Home Equipment Four Wheel Walker M2 OT-IP Current Condition Start: 07/18/21 13:44 Freq: Status: Active Protocol: Document 07/18/21 11:37 [facility] (Rec: 07/18/21 14:06 [facility] [id number]) Occupational Therapy Current Condition Current Condition Evaluation Date 07/18/21 Treatment Diagnosis GLF, S/p Right humeral fx, decreased mobility Diagnosis Onset Date 07/16/21 Post Operative Precautions Shoulder Precautions Sling Other Precautions NWB for RUE M3 OT- IP Subjective and Pain Start: 07/18/21 13:44 Freq: Status: Active Protocol: Document 07/18/21 11:37 [facility] (Rec: 07/18/21 14:06 [facility] [id number]) OT- Subjective Occupational Therapy Visit Type Type Initial Evaluation Visit Start Time 11:37 Visit Stop Time 12:06 Total Visit Minutes 29 Occupational Therapy Visit Comments Patient Comments CUT OFF SAW OPERATOR METAL present due to pt needing extensive assist for mobilty needs. OT Pain Assessment Pain When Pain Assessed At Rest Pain Present Pain Present Pain Reported M4 OT- IP ADL's Start: 07/18/21 13:44 Freq: Status: Active Protocol: Document 07/18/21 11:37 [facility] (Rec: 07/18/21 14:06 [facility] [id number]) OT IBU-[id number]-Lcyvlcc General Evaluation Self-Feeding Ability Standby Assistance Areas Needing Assistance Opening Containers OT ADL-Grooming Comments OT Grooming Comments Not performed. OT ADL-Dressing General Eval Lower Body Dressing Ability Maximum Assistance Areas Needing Assistance Underpants/Brief,Socks Comments OT Dressing Comments Pt is dependent for sling management needs. MODRoger X 2 to stand and assist to help pull up his brief. OT ADL-Bathing Comments OT Bathing Comments Not performed. M5 OT- IP IADL's Start: 07/18/21 13:44 Freq: Status: Active Protocol: Document 07/18/21 11:37 [facility] (Rec: 07/18/21 14:06 [facility] [id number]) OT-Instrumental Activities of Daily Living Home Safety Awareness Awareness of Need for Assistance at Home Decreased Awareness Medication Management Medication Management Caregiver Administers Money Management Money Management Caregiver Provides Assistance Meal Preparation Meal Preparation Caregiver Provides Assist M6 OT- IP Functional Cognition Start: 07/18/21 13:44 Freq: Status: Active Protocol: Document 07/18/21 11:37 [facility] (Rec: 07/18/21 14:06 [facility] [id number]) Cognitive Factors Limiting Selfcare Function Cognitive Ability Level of Alertness Alert,Confusional State Patient Orientation Name Attention Span Ability Capable of Focused Attention, Capable of Sustained Attention Ability to Follow Commands Able to Follow One Step Commands with Increased Time, Able to Follow One Step Commands with Repetition Safety Awareness Underestimates Need for Assistance Cognitive Comments Cognitive Assessment Comments Pt needing step by step commands to follow, in addition needing step by step details on what to expect, and pt is a bit hard of hearing. OT- Vision and Hearing OT- Hearing Assessment OT- Hearing Assessment Hearing Impaired,Use of Hearing Aids M7 OT- IP Mobility and Balance Start: 07/18/21 13:44 Freq: Status: Active Protocol: Document 07/18/21 11:37 [facility] (Rec: 07/18/21 14:06 [facility] [id number]) OT- Bed Mobility Assessment Supine to Sit Supine to Sit Assist Moderate Assistance,2 Person Assistance Scooting Scooting to Edge of Bed Moderate Assistance,1 Person Assistance OT-Transfer Assessment Sit to and From Stand Sit to and from Stand Minimal Assistance,Moderate Assistance,1 Person Assistance Transfers Transfer Ability Moderate Assistance,1 Person Assistance Technique Transfer Destination Bed,Chair Transfer Technique Stand Step Pivot Devices Transfer Assistive Devices Gait Belt,Large Based Quad Cane Comments Mobility Comments MODA X2 to get up with the head of bed up to the edge of the bed and use of bed rail to assist. Pt able to stand with min/MODA x 1 and able to transfer to recliner MODA X 1. OT- Gait Assessment Comments Gait Ability Comments MODA X 1 at this time with large base quad cane. OT- Balance Assessment Sitting Balance and Reactions Static Sitting Balance Ability Good Dynamic Sitting Balance Ability Fair Standing Balance and Reactions Static Standing Balance Ability Fair M8 OT- IP Objective Assessments Start: 07/18/21 13:44 Freq: Status: Active Protocol: Document 07/18/21 11:37 [facility] (Rec: 07/18/21 14:06 [facility] [id number]) OT Gross Range of Motion Upper Extremity Range of Motion Assessment Right Impaired OT Strength Upper Extremity Strength Assessment Right Impaired Comments Strength Comments Pt able to open and close his right hand. OT-Muscle Tone Assessment Muscle Tone WNL Yes M9 OT- IP Assessment and Plan Start: 07/18/21 13:44 Freq: Status: Active Protocol: Document 07/18/21 11:37 [facility] (Rec: 07/18/21 14:06 [facility] [id number]) OT Summary Assessment and Plan Potential Rehabilitation Potential Fair Analytic Complexity at Evaluation Moderate Summary OT Impairments Pain,Range of Motion,Strength, Balance,Functional Cognition, Functional Mobility,Self- Feeding,Grooming,Dressing, Toileting,Bathing,Toilet Transfers,Shower Transfers, Activity Tolerance Progress Towards Goals Slow Progress due to Pain,Slow Progress due to Medical Issues,Slow Progress due to Cognition Assessment Summary Pt MOD complexity and main barriers are pain, decreased bed mobility and now needing assist for all ADl and mobility needs as pt is NWB for RUE at this time due to right humeral fracture. Pt would benefit from skilled rehab versus home with increased [id number]. Goals Grooming Goal Independent Dressing Goal Moderate Assistance Toileting Goal Standby Assistance Bathing Goal Moderate Assistance Toilet Transfer Goal Independent Shower Transfer Goal Independent Days to Meet Goals 25 Frequency of Treatment Frequency Of Treatment Once a Day Treatment Plan OT Treatment Plan ADL Training,Functional Cognition Training,Functional Mobility,Patient/Family Education,Discharge Planning Other Treatment Recommendations and Next Pt to be able to care administrative tech Treatment Focus front of the sink for grooming needs with set-up assist. Discharge Recommendations OT Discharge Recommendations Home with 24/7 Assist Available,SNF Rehab,Home vs SNF Transportation Needs at Discharge Private Vehicle,Wheelchair/ Cabulance
--- NOTE | 2021-07-18 12:29 | DIET.CONS ---
Dietary Consultation Note Admission Date: 07/16/2021 16:04 Assessment: 86 y/o M admitted with R shoulder pain. Resides in assisted living. Hx of Alzheimer's dementia, DM, HLD, COPD, HTN, CHF, afib. Not appropriate for DM/nutrition education. HgA1c 7.5% with recent blood sugars 152, 203 h, 193 H. Currently on Lantus 18u. Low GFR (37.5). Might benefit from increase in Lantus given hyperglycemia, though HgA1c well managed given PMH. Ht: 170.18 cm Wt: 91.7 kg BMI: 31.6 Last BM: 07/17/21 (07/17/21 04:00) MNA: 13 Leonardo Score: 17 Diet: 07/16/21 Dinner Carbohydrate Consistent Diet Diet Modifications: Safety Tray needed?: No Carbohydrate level: Medium (3 CHO) 07/17/21 Breakfast Fluid Restriction Diet Diet Modifications: Total fluid amount: 2,000 Amount allotted to patient trays: 100 Free water included in total: Yes 7a-3p amount: 600 3p-11p amount: 600 11p-7a amount: 600 Percent of last meal consumed (last 48h) Percent Meal Consumed 100% 07/18/21 07:00 Percent Meal Consumed 100% 07/17/21 14:22 Percent Meal Consumed 100% 07/17/21 09:52 Labs: RBC 3.05 X10^6/uL (4.5-5.9) L 07/18/21 05:28 Hgb 10.8 g/dL (13.5-17.5) L 07/18/21 05:28 Hct 31.4 % (41-53) L 07/18/21 05:28 Creatinine 1.74 mg/dL (0.66-1.25) H 07/18/21 05:28 Hemoglobin A1c 7.5 % (4.0-6.0) H 07/16/21 20:15 NT-Pro-B Natriuret Pep 5230 pg/mL (<450) H 07/17/21 05:35 Nutrition Diagnosis: Altered nutrition related lab value r/t T2DM aeb hgA1c 7.5% Interventions: None at this time. Please consult prn. Monitoring/Evaluations: blood glucose, PO
--- NOTE | 2021-07-18 13:50 | PT.IPTN ---
Physical Therapy Treatment Note M2 PT-IP Current Condition Start: 07/17/21 13:38 Freq: NEEDED Status: Active Protocol: Document 07/17/21 12:05 [facility] (Rec: 07/17/21 13:52 AB [id number]) Physical Therapy Current Condition Current Condition Evaluation Date 07/17/21 Treatment Diagnosis GLF s/o R humeral fx; CHF; syncope; difficulty in walking Onset Date 07/16/21 Precautions Shoulder Precautions Sling Weight Bearing Status Weight Bearing Status Non-Weight Bearing Allowed Weight Bearing Amount (enter % RUE NWB or #) (%) M3 PT-IP Subjective Start: 07/17/21 13:38 Freq: NEEDED Status: Active Protocol: Document 07/18/21 13:50 [facility] (Rec: 07/18/21 16:29 AB [id number]) Subjective Physical Therapy Visit Type Type Treatment Note Visit Start Time 13:50 Visit Stop Time 14:20 Total Visit Minutes 30 Number of MIND READER Visits 0 Physical Therapy Visit Comments Patient Comments continues to have confusion Therapy Pain Assessment Pain When Pain Assessed During Mobility Pain Present Pain Present Pain Reported Location Right Shoulder Scale Used pain scale not stated Pain Management Techniques Apply Cold,Distraction, Modification of Treatment,Re- positioning,Timing of Activity with Medications M4 PT-IP Mobility and Gait Start: 07/17/21 13:38 Freq: NEEDED Status: Active Protocol: Document 07/18/21 13:50 [facility] (Rec: 07/18/21 16:29 AB [id number]) PT-Bed Mobility Assessment Supine to Sit Supine to Sit Maximum Assistance,1 Person Assistance Scooting Scooting to Edge of Bed Maximum Assistance PT-Transfer Assessment Sit to and From Stand Sit to and from Stand Maximum Assistance,1 Person Assistance,Use of Upper Extremities Equipment Transfer Assistive Device Gait Belt,Large Based Quad Cane Orthotic/Prosthetic Devices or Brace: Yes Transfers Transfer Destination Bed,Toilet Transfer Technique ambulated Transfer Ability Level of Assist Maximum Assistance,1 Person Assistance,2 Person Assistance ,Use of Upper Extremities Comments Mobility Comments pt in bed. daughter in room. asked pt if willing to do PT. daughter stated that PT should not give pt an option and just do it. informed daughter that PT has to ask for consent because pt has a right to refuse. informed pt that he is going to get up and walk and agreed. completed supine to sit HOB elevated max A and max cues. increase posterior trunk lean with sitting max A for positioning and max cues for safety. pt is very [place] and has decrease safety awareness. NAC present to assist. completed sling adjustment and provided sling trunk strap support for proper sling positioning. pt completed sit to stand from EOB max A x 1 and NAC providing CGA. pt ambulated using quadcane max A and requested to go use the toilet and ambulated to the toilet. max A for standing balance using grab bar for support. Pt difficulty directing and managing urine. instructed to sit on bedside commode as pt was beginning to get tired and with increase trunk and knee flexion. assisted pt with hygiene care and brief management. pt completed sit to stand again max A and ambulated to the bed using quad cane max A + CGA. assisted pt with managing socks. complete sit to supine max A x 2 and max cues. positioned pt on the bed max A x 2 and max cues. Left pt with NAC. Gait Assessment Gait Gait Assistance Required: Maximum Assistance,1 Person Assist,2 Person Assist Distance (Feet) 15 Able to Maintain Weight Bearing Status Yes During Gait Assistive Devices Assistive Device Gait Belt,Large Based Quad Cane Orthotic/Prosthetic Devices or Brace: Yes Gait Deviations General Gait Pattern Antalgic,Decreased Stride Length,Decreased Feet Clearance,Wide Based Gait Factors Limiting Gait Function Factors Limiting Gait Function Decreased Activity Tolerance, Decreased Strength,Difficulty Following Directions,Limited Range of Motion,Pain,Poor Balance,Poor Safety Awareness M5 PT-IP Objective Assessments Start: 07/17/21 13:38 Freq: NEEDED Status: Active Protocol: Document 07/17/21 12:05 AB (Rec: 07/17/21 13:52 AB [id number]) Orientation Orientation/Cognition Level of Alertness Confusional State Orientation Name Language Function Ability Hard of Hearing Safety Awareness Decreased Safety Awareness Memory Description Short Term Impaired Gross Range of Motion Lower Extremity ROM Assessment Within Functional Limits Strength Lower Extremity Strength Assessment Bilaterally Impaired Hip 3+/5 Knee 4-/5 Muscle Tone Muscle Tone WNL Yes M6 PT-IP Treatment Start: 07/17/21 13:38 Freq: NEEDED Status: Active Protocol: Document 07/18/21 13:50 AB (Rec: 07/18/21 16:29 AB [id number]) Physical Therapy Treatment Education Education Provided Safety M7 PT-IP Assessment and Plan Start: 07/17/21 13:38 Freq: NEEDED Status: Active Protocol: Document 07/18/21 13:50 AB (Rec: 07/18/21 16:29 AB [id number]) PT Summary Assessment and Plan Potential Rehabilitation Potential Fair Summary Impairments Pain,ROM,Strength,Balance, Coordination,Sensation,Tone, Cognition,Bed Mobility, Transfers,Gait,Activity Tolerance Progress Towards Goals Slow Progress due to Pain,Slow Progress due to Activity Tolerance,Slow Progress - Other Assessment Summary pt requiring 2 person assist with mobility and has decrease safety awareness. pt has dx of dementia affecting following directs, task carryover and safety awareness . pt will require SNF rehab to improve overall strength and mobiltiy independence. Goals Bed Mobility Goal Standby Assistance Transfer Goal Standby Assistance,Cane Gait Goal Standby Assistance,Cane Gait Distance 100 Days to Meet Goals 10 Frequency of Treatment Frequency Of Treatment Twice a Day Treatment Plan Physical Therapy Treatment Plan Bed Mobility Training,Transfer Training,Gait Training, Therapeutic Exercise,Balance Retraining,Discharge Planning, Hot or Cold Pack,Neuromuscular Re-ed,Coordination Retraining Precautions Shoulder Precautions Sling Other Precautions falls, RUE NWB Recommendations To Nursing Amount of Assist Needed 2 Person Assist Discharge Recommendations PT Discharge Recommendations SNF Rehab Transportation Needs at Discharge Wheelchair/Cabulance
--- NOTE | 2021-07-18 15:24 | CM.DPNOTE ---
DCP Note Discussed this referral with [facility] NATALIE, oMnik Kingsley, [facility] and [facility]R -no. These facilities do not feel they have the staffing to provide care to this patient. Awaiting CB from [facility]. Therapies recommending SNF. Updated dtr Gerald re: inpatient status and efforts for SNF placement. If needed, SNF search can be broadened according to dtr. Placed call to Neelam at [facility], had to LM. Question is, at what point will patient be able to return home to [facility] if SNF cannot be secured? Following closely for coordination of the safest plan available to patient. PASRR is needed if SNF secured. ELIANA
--- NOTE | 2021-07-18 18:36 | PM.PN.1 ---
Subjective Subjective Date Patient Seen: 07/18/21 Time Patient Seen: 18:36 Interval history: Mr. Tj Bull is an 84-year-old male with past medical history of dementia, remote bullous pemphigoid, COPD, diabetes, hypertension, hyperlipidemia,CHF admitted with syncopal episode, concerning for possible ACS or cardiac cause given presentation and EKG abnormalities that were transient per ER provider. He denies complaints today other than shoulder pain. Has had multiple episodes of NSVT on telemetry, but asymptomatic thus far and nothing sustained. Exam Vital Signs (past 8 hours): - 07/18/21 11:00 07/18/21 12:00 07/18/21 14:51 Temperature 97.1 F L Pulse Rate 86 88 86 Pulse Rate [Orthostatic Lying] Pulse Rate [Orthostatic Sitting] Pulse Rate [Orthostatic Standing] Respiratory Rate 18 20 18 Blood Pressure 105/65 Blood Pressure [Orthostatic Lying] Blood Pressure [Orthostatic Sitting] Blood Pressure [Orthostatic Standing] Pulse Oximetry 91 93 91 07/18/21 15:40 07/18/21 16:03 07/18/21 17:51 Temperature 96.1 F L Pulse Rate 80 Pulse Rate [Orthostatic Lying] 92 H Pulse Rate [Orthostatic Sitting] 94 H Pulse Rate [Orthostatic Standing] 97 H Respiratory Rate 16 Blood Pressure 142/83 H Blood Pressure [Orthostatic Lying] 143/95 H Blood Pressure [Orthostatic Sitting] 151/51 H Blood Pressure [Orthostatic Standing] 149/88 H Pulse Oximetry 93 93 Oxygen Delivery Method Room Air Oxygen Flow Rate 0 Narrative Exam Narrative: General: Patient is a well-developed, well-nourished male in no distress at this time. HEENT: Normocephalic, atraumatic, extraocular muscles intact, oral pharynx is clear and mucous membranes are moist. Neck is supple and symmetric, trachea is midline, no adenopathy, no thyroid enlargement, nontender, no masses palpated. Negative for JVD Chest: Normal AP diameter and contour without kyphoscoliosis, no nasal flaring, retractions, or tachypneic labored Lungs: Auscultation of all lung pena are clear without adventitious sounds, wheezes, rhonchi, or rales. Cardio: S1 & S2 with regular rate and rhythm without murmur, rubs, or gallops, no carotid bruit, no cardiac pulsations present. Abdomen: Soft nontender, negative for organomegaly, or masses. Bowel sounds are present in all 4 quadrants without guarding or rebound, no CVA tenderness. Musculoskeletal: Right Arm in sling-right radial pulse intact, cap refill WNL, warm to touch good circulation. Muscle strength and tone are equal within normal limits, no deformity, crepitus, effusions, cyanosis, clubbing or edema present. Full range of motion intact radial and pedal pulses are normal. Skin: Warm dry and intact without rashes, ulcerations or petechiae. Neuro: Alert and orientated x1 to person, strength is +5/5 in all extremities, sensation to touch intact, no gross deficits noted of cranial nerves. Psych: Patient has a well-kept appearance, appropriate affect. Objective Labs Result Diagrams: 07/18/21 05:28 07/18/21 05:28 Labs: Laboratory Results - last 24 hr 07/18/21 07/18/21 07/18/21 00:30 05:28 05:28 WBC 6.9 RBC 3.05 L Hgb 10.8 L Hct 31.4 L MCV 102.8 H MCH 35.5 H MCHC 34.5 RDW 16.7 H Plt Count 192 Neut % (Auto) 64.5 Lymph % (Auto) 18.0 L [place] % (Auto) 12.0 Eos % (Auto) 5.3 H Baso % (Auto) 0.2 Neut # (Auto) 4400 Lymph # (Auto) 1200 [place] # (Auto) 800 Eos # (Auto) 400 Baso # (Auto) 0 Sodium 135 L Potassium 4.6 Chloride 105 Carbon Dioxide 21 L BUN 65 H Creatinine 1.74 H Estimated GFR 37.5 L BUN/Creatinine Ratio 37.4 H Glucose 193 H Calcium 8.5 Total Bilirubin 0.4 AST 22 ALT 19 Alkaline Phosphatase 62 Total Protein 6.0 L Albumin 3.3 L Globulin 2.7 Albumin/Globulin Ratio 1.2 Urine Color Yellow Urine Appearance Clear Urine pH 5.0 Ur Specific [place] 1.010 Urine Protein Negative Urine Glucose (UA) Trace H Urine Ketones Negative Urine Occult Blood Negative Urine Nitrate Negative Urine Bilirubin Negative Urine Urobilinogen 0.2 Ur Leukocyte Esterase Negative Urine RBC 0-1/hpf Urine WBC 0-1/hpf Ur Squamous Epith Cells 0-1 /hpf Urine Bacteria None seen Hyaline Casts 0-1/lpf Ur Culture Indicated? Cult not indicated PFSH Medical History Age related osteoporosis Alzheimer's dementia Arthritis of right hip Cataract Congestive heart failure (CHF) COPD (chronic obstructive pulmonary disease) Diabetes type 2, controlled Hard of hearing Hyperlipemia Hypertension Umbilical hernia Social History household members: family Smoking Status: Former smoker alcohol intake: never Assessment & Plan Assessment & Plan narrative: Mr. Tj Bull is an 86-year-old male with past medical history of Alzheimer's dementia, remote bullous pemphigoid, COPD, diabetes, hypertension, and CHF who presented to the emergency room with witnessed syncopal episode possibly x2 of unknown etiology, but concerning given initial EKG changes for possible ACS or cardiac arrythmia as well as syncopal episode leading to dispalced humeral shaft fracture. 1.ground level fall, resulting in displaced right proximal humeral shaft pathologic fracture, in the setting of age-related osteoporosis, acute on chronic, present on admission -Right shoulder x-ray demonstrated acute minimally displaced right proximal humeral shaft fracture. -patient's right arm in a sling. -pain and inflammation management -appreciate orthopedic surgery consultation. recommend outpatient follow up in 1 week with sling. -PT and OT consultations. -strict fall precautions -patient has a right arm fracture, normally ambulates with a walker, and lives in assisted living without medical support. He requires a significant amount of assistance given fracture compared to his baseline. 2. Syncopal episode of unknown etiology, possibly due to non-symptomatic ST elevation Myocardial infarction or STEMI, in the setting of systolic heart failure EF 35-40%, essential HTN, acute on chronic, present on admission -initial EKG concerning for STEMI, however resolved on repeat tracing. However suspect syncope was related to some cardiac event whether it be ACS or possible arrythmia. He has had multiple episodes of NSVT on telemetry so far. -patient and daughter JOSIE both refused transfer for cardiac catheterization, agreed only to medication interventions, DNR/DNI. -patient was and remains asymptomatic of acute STEMI symptoms, patient continues to demonstrate no chest pain, shortness of breath, diaphoresis, hemodynamic instability, agitation, troponins trended x3: 0.017, 0.016, 0.016. -patient was given 325 ASA, heparin bolus and placed on heparin drip in the ED. Heparin infusion now stopped after tele-graphite disk assembler consult and instead continued on home dose of apixaban. -no signs of volume overload currently. -TTE completed today without overt changes compared to baseline. -continue home Eliquis 2.5 mg b.i.d., carvedilol 6.25 mg b.i.d. -recommend outpatient Cardiology follow-up, possible Holter monitor if no events found. 3. ckd3 - renally dose medications. Continue to monitor creatinine. 4. Mild anemia of unknown etiology, chronic, present on admission -hemoglobin at 10.8, HCT 31.9, MCV 102. -patient's hemoglobin is normally low between 12-11 since November 2019 5. COPD, chronic, stable, present on admission -continue home Spiriva, and as needed albuterol 6. Alzheimer's dementia, acute on chronic, present on admission -continue patient's venlafaxine 7. type 2 insulin dependent diabetes, chronic - continue home medications. 8. obesity with BMI 31.7 - puts patient at risk for adverse cardiac outcomes, contributes towards patient's DM, HLD, and other chronic conditions. 9. hld, acute on chronic continue home medications. Code Status : DNR Surrogate decision maker: Patient's daughter Gerald Hester PCR: Negative COVID vaccination: Patient is fully vaccinated DVT/VTE prophylaxis: Patient to continue Eliquis and SCDs Dispo: recommended for SNF, possible discharge tomorrow if stable. Changed to inpatient status after review. Quality VTE Deep Vein Thrombosis/Pulmonary Embolism Present on Admission: No
[2021-07-18] MEDS: SENNOSIDES 8.6 MG TABLET 17.2 MG PO (20:04)
[2021-07-19] VITALS (8 sets, daily range): BP systolic 138–159; BP diastolic 73–94; PULSE 67–86; RESP 18; TEMP 36–36.4; O2SAT 93–95
[2021-07-19 05:24] LABS: Add Manual Diff / Slide Review NO; Basophils Absolute Auto 100 /uL (0-100); Basophils Percent Auto 0.6 % (0-2); Eosinophils Absolute Auto 600 /uL (0-450); Eosinophils Percent Auto 5.5 % (2-4); Hematocrit 30.5 % (41-53); Hemoglobin 10.1 g/dL (13.5-17.5); Lymphocytes Absolute Auto 1400 /uL (1100-4500); Lymphocytes Percent Auto 13.1 % (25-40); Mean Corpuscular HGB Conc 33.1 % (30-36); Mean Corpuscular Volume 102.8 fL (80-100); Monocytes Absolute Auto 1200 /uL (0-900); Neutrophils Absolute Auto 7600 /uL (1500-7000); Neutrophils Percent Auto 69.8 % (50-75); Platelet Count 208 X10^3/uL (150-400); Red Blood Cell Count 2.97 X10^6/uL (4.5-5.9); Red Cell Distribution Width 16.7 % (11.6-14.8); White Blood Cell Count 10.9 X10^3/uL (4.5-11.0)
[2021-07-19 05:31] LABS: Alanine Aminotransferase 17 IU/L (<50); Albumin 3.2 g/dL (3.5-5.0); Albumin Globulin Ratio 1.1 (1.0-2.8); Alkaline Phosphatase 68 U/L (38-126); Aspartate Aminotransferase 19 IU/L (17-59); BUN Creatinine Ratio 38.8 (6-22); Bilirubin Total 0.4 mg/dL (0.2-1.3); Blood Urea Nitrogen 62 mg/dL (9-20); Calcium 8.4 mg/dL (8.4-10.2); Carbon Dioxide 23 mmol/L (22-32); Chloride 107 mmol/L (98-107); Estimated Glomerular Filt Rate 41.3 mL/min (>60); Globulin 2.9 g/dL (1.7-4.1); Glucose 175 mg/dL (80-110); HEMOLYSIS < 15 (0-50); Potassium 4.5 mmol/L (3.4-5.1); Sodium 135 mmol/L (137-145); Total Protein 6.1 g/dL (6.3-8.2)
[2021-07-19] MEDS: IPRATROPIUM 0.5 MG/2.5 ML NEB INH (08:05)
[2021-07-19] MEDS: ALBUTEROL 2.5 MG/3 ML NEB (ADULT) INH (08:09)
[2021-07-19] MEDS: INSULIN GLARGINE 100 UNIT/ML 3ML PEN 18 UNIT SUBCUT (08:42)
[2021-07-19] MEDS: INSULIN LISPRO 100 UNIT/ML 3ML VIAL SUBCUT ×2 (08:42→12:05)
[2021-07-19] MEDS: APIXABAN 5 MG TABLET 2.5 MG PO (08:43)
[2021-07-19] MEDS: DOCUSATE 100 MG CAPSULE PO (08:44)
[2021-07-19] MEDS: VENLAFAXINE ER 75 MG CAP PO (08:44)
[2021-07-19] MEDS: carvediloL 12.5 MG TABLET 6.25 MG PO (08:44)
[2021-07-19] MEDS: ACETAMINOPHEN 325 MG TABLET 650 MG PO (09:46)
--- NOTE | 2021-07-19 11:11 | PM.DS.1 ---
History of Present Illness History of Present Illness Date Patient Seen: 07/19/21 Time Patient Seen: 11:22 Chief complaint: GLF Rt. Shoulder pain Narrative: Patient is a 86-year-old gentleman [facility] who lives at assisted living history of Alzheimer's dementia, diabetes, hyperlipidemia,remote bullous pemphigoid, COPD, hypertension, CHF, paroxysmal a fib on abixaban after falling at home today landing on his right shoulder. While the medics were assisting the patient he had another syncopal episode. He adamantly states that he simply stumbled causing the fall with the right shoulder injury. He states he had has no chest pain, orthopnea, dyspnea. Clearly states he did not hit his head and has no pain complaints aside from the right shoulder. He denies any recent fevers, cough, chills, diaphoresis, abdominal pain, vomiting, diarrhea. He is fully vaccinated for COVID. He states he has not not been having any exertional angina or exertional dyspnea over the last weeks and denies any lower extremity edema. In the ED: 11:22 concern for acute STEMI is reviewed with patient and his daughter who has power of applications project manager. Patient absolutely denies any chest pain and states he clearly is not having heart attack. When reviewed with his daughter patient is a no code, no intubation, minimal intervention and she believes that he would not want to have a cardiac catheterization. She does agree that medical management would be something he would agree to. Upon admit patient is resting and sleeping comfortably in bed, reports ROS is negative as stated above. Patient is orientated to self but is confused, daughter reported to the ED that this is the patient's cognitive baseline. Patient's vitals upon admit are mostly within normal limits temp 97.3?, mild hypertension B/P 168/98, HR 74, RR 18, O2 saturation 94% on room air. Patient is slightly anemic with a hemoglobin at 10.8, HCT 31.9, MCV 102. Sodium 135, BUN 51, creatinine 1.89 up from 1.68 on 06/19/2021, GFR 34.1 down from 39, total creatinine kinase 35, troponin 1. 0.017, 2. 0.016, 3. 0.016. Chest x-ray demonstrated cardiomegaly without focal infiltrates or pneumothorax. Right shoulder x-ray demonstrated acute minimally displaced right proximal humeral shaft fracture. EKG demonstrated acute STEMI/RI with a ventricular rate of 58 unusual P access, incomplete right bundle-branch block, septal infarct, and possible right ventricular acute infarction. Patient remains asymptomatic did not and has not had any chest pain, shortness of breath, diaphoresis, jaw pain or any other cardiac symptoms. Patient admitted for syncopal episode of unknown etiology, STEMI/ACS rule out, resulting in ground level fall, and minimally displaced right proximal humeral shaft fracture, with mild BERKLEY. Discharge Providers Provider Date of admission: 07/16/21 16:04 Discharge Date: 07/19/21 Primary care physician: María Esteban MD Consults: 07/16/21 19:48 Consult to Occupational Therapy Evaluate & Treat Comment: Fall /FX Physician Instructions: Evaluate and treat 07/16/21 19:49 Consult to Physical Therapy Evaluate & Treat Comment: Fall/Fx Physician Instructions: Evaluate and Treat Consult to Physician Routine Comment: Consulting Provider: Boris Lang Reason for consultation: Displaced right proximal humeral shaft fracture Has provider been notified: No 07/16/21 19:51 Consult to Dietitian, Adult Routine Comment: Reason For Exam: BMI 31.7-DM2 Discharge provider: Katey Isbell MD Summary Hospital Course Discharge Diagnosis: . 1.ground level fall, resulting in displaced right proximal humeral shaft pathologic fractur 2. Syncopal episode of unknown etiology, possibly due to non-symptomatic ST elevation Myocardial infarction or STEMI, in the setting of systolic heart failure EF 35-40%, essential HTN 3. ckd3 4. Mild anemia 5. COPD 6. Alzheimer's dementia 7. type 2 insulin dependent diabetes 8. obesity with BMI 31.7 9. Hyperlipidemia Hospital Course: Mr. Tj Bull is an 86-year-old male with past medical history of Alzheimer's dementia, remote bullous pemphigoid, COPD, diabetes, hypertension, and CHF who presented to the emergency room with witnessed syncopal episode possibly x2 of unknown etiology, but concerning given initial EKG changes for possible ACS or cardiac arrythmia as well as syncopal episode leading to displaced humeral shaft fracture. 1.ground level fall, resulting in displaced right proximal humeral shaft pathologic fracture, in the setting of age-related osteoporosis -Right shoulder x-ray demonstrated acute minimally displaced right proximal humeral shaft fracture. -keep patient's right arm in a sling. -pain management with Tramadol -appreciate orthopedic surgery consultation. recommend outpatient follow up with AMEENA Guzman in 1 week with sling. -PT and OT planned at the [facility] -strict fall precautions -patient has a right arm fracture, normally ambulates with a walker, and lives in assisted living without medical support. He requires a significant amount of assistance given fracture compared to his baseline. 2. Syncopal episode of unknown etiology, possibly due to non-symptomatic ST elevation Myocardial infarction or STEMI, in the setting of systolic heart failure EF 35-40% -initial EKG concerning for STEMI, however resolved on repeat tracing. However suspect syncope was related to some cardiac event whether it be ACS or possible arrythmia. He has had multiple episodes of NSVT on telemetry so far. -patient and daughter JOSIE both refused transfer for cardiac catheterization, agreed only to medication interventions, DNR/DNI. -patient was and remains asymptomatic of acute STEMI symptoms, patient continues to demonstrate no chest pain, shortness of breath, diaphoresis, hemodynamic instability, agitation, troponins trended x3: 0.017, 0.016, 0.016. -patient was given 325 ASA, heparin bolus and placed on heparin drip in the ED. Heparin infusion was stopped after tele-oncologist consult and instead continued on home dose of apixaban. -TTE without overt changes compared to baseline. -continue home Eliquis 2.5 mg b.i.d., carvedilol 6.25 mg b.i.d. -recommend outpatient Cardiology follow-up, possible Holter monitor if no events found. 3. ckd3 - renally dose medications. 4. Mild anemia of unknown etiology, chronic, present on admission -hemoglobin at 10.8, HCT 31.9, MCV 102. -patient's hemoglobin baseline is between 12-11 since November 2019 5. COPD, chronic, stable, present on admission -continue home Spiriva, and as needed albuterol 6. Alzheimer's dementia, acute on chronic, present on admission -continue venlafaxine 7. type 2 insulin dependent diabetes, chronic - continue home medications. 8. obesity with BMI 31.7 9. hld, acute on chronic Follow-up CBC/BMP in 1 week. Code Status : DNR Surrogate decision maker: Patient's daughter Gerald Covid PCR: Negative COVID vaccination: Patient is fully vaccinated DVT/VTE prophylaxis: Patient to continue Eliquis and SCDs Dispo: [facility] today at recommendation of PT/OT.. Status at Discharge Cognitive/behavioral status at discharge: at baseline, confused Time Spent with Patient Time spent: Greater than 30 minutes Exam Vital Signs (past 8 hours): - 07/19/21 04:00 07/19/21 04:45 07/19/21 08:05 Temperature 96.8 F L Pulse Rate 67 82 Respiratory Rate 18 18 Blood Pressure 152/73 H Pulse Oximetry 94 95 93 07/19/21 08:44 07/19/21 09:15 Temperature 97.2 F L Pulse Rate 81 86 Respiratory Rate 18 Blood Pressure 155/79 H 159/85 H Pulse Oximetry 95 Oxygen Delivery Method Room Air Oxygen Flow Rate 0 Narrative Exam Narrative: He is quite alert and talkative today. No apparent distress. Heart is regular rate and rhythm without murmur Lungs are clear to auscultation bilaterally Abdomen is soft, bowel sounds positive, nontender, protuberant. Extremities have no ankle edema. He is wearing a right arm sling. Objective Labs Result Diagrams: 07/19/21 05:10 07/19/21 05:10 Labs: Laboratory Results - last 24 hr 07/19/21 07/19/21 05:10 05:10 WBC 10.9 D RBC 2.97 L Hgb 10.1 L Hct 30.5 L MCV 102.8 H MCH 34.0 MCHC 33.1 RDW 16.7 H Plt Count 208 Neut % (Auto) 69.8 Lymph % (Auto) 13.1 L Sebastian % (Auto) 11.0 Eos % (Auto) 5.5 H Baso % (Auto) 0.6 Neut # (Auto) 7600 H Lymph # (Auto) 1400 Sebastian # (Auto) 1200 H Eos # (Auto) 600 H Baso # (Auto) 100 Sodium 135 L Potassium 4.5 Chloride 107 Carbon Dioxide 23 BUN 62 H Creatinine 1.60 H Estimated GFR 41.3 L BUN/Creatinine Ratio 38.8 H Glucose 175 H Calcium 8.4 Total Bilirubin 0.4 AST 19 ALT 17 Alkaline Phosphatase 68 Total Protein 6.1 L Albumin 3.2 L Globulin 2.9 Albumin/Globulin Ratio 1.1 [facility] Medical History Age related osteoporosis Alzheimer's dementia Arthritis of right hip Cataract Congestive heart failure (CHF) COPD (chronic obstructive pulmonary disease) Diabetes type 2, controlled Hard of hearing Hyperlipemia Hypertension Umbilical hernia Social History household members: family Smoking Status: Former smoker alcohol intake: never Discharge Assessment & Plan Assessment and Plan Assessment: 1.ground level fall, resulting in displaced right proximal humeral shaft pathologic fracture, in the setting of age-related osteoporosis -Right shoulder x-ray demonstrated acute minimally displaced right proximal humeral shaft fracture. -keep patient's right arm in a sling. -pain management with Tramadol -appreciate orthopedic surgery consultation. recommend outpatient follow up with AMEENA Guzman in 1 week with sling. -PT and OT planned at the [facility] -strict fall precautions -patient has a right arm fracture, normally ambulates with a walker, and lives in assisted living without medical support. He requires a significant amount of assistance given fracture compared to his baseline. 2. Syncopal episode of unknown etiology, possibly due to non-symptomatic ST elevation Myocardial infarction or STEMI, in the setting of systolic heart failure EF 35-40% -initial EKG concerning for STEMI, however resolved on repeat tracing. However suspect syncope was related to some cardiac event whether it be ACS or possible arrythmia. He has had multiple episodes of NSVT on telemetry so far. -patient and daughter JOSIE both refused transfer for cardiac catheterization, agreed only to medication interventions, DNR/DNI. -patient was and remains asymptomatic of acute STEMI symptoms, patient continues to demonstrate no chest pain, shortness of breath, diaphoresis, hemodynamic instability, agitation, troponins trended x3: 0.017, 0.016, 0.016. -patient was given 325 ASA, heparin bolus and placed on heparin drip in the ED. Heparin infusion was stopped after tele-oncologist consult and instead continued on home dose of apixaban. -TTE without overt changes compared to baseline. -continue home Eliquis 2.5 mg b.i.d., carvedilol 6.25 mg b.i.d. -recommend outpatient Cardiology follow-up, possible Holter monitor if no events found. 3. ckd3 - renally dose medications. 4. Mild anemia of unknown etiology, chronic, present on admission -hemoglobin at 10.8, HCT 31.9, MCV 102. -patient's hemoglobin baseline is between 12-11 since November 2019 5. COPD, chronic, stable, present on admission -continue home Spiriva, and as needed albuterol 6. Alzheimer's dementia, acute on chronic, present on admission -continue venlafaxine 7. type 2 insulin dependent diabetes, chronic - continue home medications. 8. obesity with BMI 31.7 9. hld, acute on chronic Discharge Plan Discharge Plan Patient Disposition: Home Provider Discharge Comment: F/U with SNF medical instructor in one week Discharge orders & Medications Prescriptions: New acetaminophen 325 mg Tablet 650 mg PO Q6HR PRN (Reason: Fever/Mild Pain (1-3)) Qty: 60 RF: 0 tramadol 50 mg tablet 50 mg PO Q8H PRN (Reason: pain) Qty: 60 RF: 0 Continued Lantus U-100 Insulin 100 unit/mL Solution 18 unit SUBCUT DAILY RF: 0 carvedilol 12.5 mg tablet 6.25 mg PO BID RF: 0 melatonin 3 mg Tablet 3 mg PO BEDTIME PRN (Reason: Insomnia) RF: 0 albuterol sulfate [ProAir HFA] 90 mcg/actuation Hfa Aerosol Inhaler 2 puff INHALATION Q4H PRN (Reason: Wheezing) RF: 0 furosemide 40 mg tablet 40 mg PO DAILY RF: 0 venlafaxine 75 mg capsule,extended release 24hr 75 mg PO DAILY RF: 0 spironolactone 25 mg tablet 12.5 mg PO DAILY RF: 0 methotrexate sodium 2.5 mg tablet 10 mg PO QWEEK RF: 0 folic acid 800 mcg Tablet 0.8 mg PO DAILY RF: 0 Spiriva with HandiHaler 18 mcg capsule, w/inhalation device 18 mcg INHALATION DAILY RF: 0 cholecalciferol (vitamin D3) [Vitamin D3] 125 mcg (5,000 unit) Tablet 125 mcg PO DAILY RF: 0 Eliquis 2.5 mg tablet 2.5 mg PO BID RF: 0 Follow up/Referrals: María Esteban MD [Primary Care Provider] - Rosana Morin MD [Physician] - (follow up with a PA 1 week after discharge) Diet/Activity/Treatments Diet: Regular Discharge Data Primary Care Provider: María Esteban Quality VTE Deep Vein Thrombosis/Pulmonary Embolism Present on Admission: No
--- NOTE | 2021-07-19 11:11 | CM.DPC ---
DCP Discharge SNF Per MD, pt is medically stable to d/c to SNF today. Per previous SW note: [facility], [facility], [facility], [facility] all declined pt and Dtr was agreeable with searching for SNF outside of [facility]. SAMAN called [facility] admissions with new referral and faxed clinicals to review and they confirm they can accept him today and no updated COVID needed as last was on 07/16/21. Need copy of COVID vaccination card and agreeable with Dtr transporting if she is available. SAMAN called Dtr Gerald and updated and she is agreeable with d/c to [facility] and available to transport pt around 1400 and SW provided pt's Medicare Rights and she acknowledged understanding and SW placed copy in d/c packet. SAMAN updated PT ESCORT, satellite project site monitor, and RN and will have pt ready for transport around 1400. SAMAN updated MD who will write discharge now. SAMAN called pt's [facility] in [place] and updated on d/c plan and requested copy of vaccination card and they faxed right away. SAMAN faxed [facility], Ortho Consult note, COVID neg results, COVID vaccination card to [facility] to review. Plan: SAMAN to follow for faxing final discharge summary, scripts, and med rec to [facility] to review for plan of Dtr to provide transport to [facility] around 1400. MARY Devine
--- NOTE | 2021-07-19 12:03 | PT.IPTN ---
Physical Therapy Treatment Note M2 PT-IP Current Condition Start: 07/17/21 13:38 Freq: NEEDED Status: Discharge Protocol: Document 07/17/21 12:05 AB (Rec: 07/17/21 13:52 AB [id number]) Physical Therapy Current Condition Current Condition Evaluation Date 07/17/21 Treatment Diagnosis GLF s/o R humeral fx; CHF; syncope; difficulty in walking Onset Date 07/16/21 Precautions Shoulder Precautions Sling Weight Bearing Status Weight Bearing Status Non-Weight Bearing Allowed Weight Bearing Amount (enter % RUE NWB or #) (%) M3 PT-IP Subjective Start: 07/17/21 13:38 Freq: NEEDED Status: Discharge Protocol: Document 07/19/21 11:44 CLB (Rec: 07/19/21 13:14 CLB [id number]) Subjective Physical Therapy Visit Type Type Treatment Note Visit Start Time 11:44 Visit Stop Time 12:03 Total Visit Minutes 19 Notes RN Vannesa present Number of CASINO SUPERVISOR Visits 1 Physical Therapy Visit Comments Patient Comments continues to have confusion Therapy Pain Assessment Pain When Pain Assessed At Rest Pain Present Pain Present Pain Reported M4 PT-IP Mobility and Gait Start: 07/17/21 13:38 Freq: NEEDED Status: Discharge Protocol: Document 07/19/21 11:13 CLB (Rec: 07/19/21 13:14 CLB [id number]) PT-Bed Mobility Assessment Supine to Sit Supine to Sit Maximum Assistance,1 Person Assistance Scooting Scooting to Edge of Bed Maximum Assistance PT-Transfer Assessment Sit to and From Stand Sit to and from Stand Maximum Assistance,1 Person Assistance,Use of Upper Extremities Equipment Transfer Assistive Device Gait Belt,Large Based Quad Cane Orthotic/Prosthetic Devices or Brace: Yes Transfers Transfer Destination Chair Transfer Technique ambulated Transfer Ability Level of Assist Maximum Assistance,2 Person Assistance Comments Mobility Comments Pt in bed requiring Max A to sit and scooting to EOB, RN place brief over feet at EOB, Pt stood requiring Mod A x1 and Min A for standing balance while donning brief. Pt ambulated Mod A using LBQC and three point gait pattern. Pt sat in chair and left with FITTING ROOM ATTENDANT to take over care. Gait Assessment Gait Gait Assistance Required: Moderate Assistance Distance (Feet) 15 Assistive Devices Assistive Device Gait Belt,Large Based Quad Cane Orthotic/Prosthetic Devices or Brace: Yes Gait Deviations General Gait Pattern Antalgic,Decreased Stride Length,Decreased Feet Clearance,Wide Based Gait Factors Limiting Gait Function Factors Limiting Gait Function Decreased Activity Tolerance, Decreased Strength,Difficulty Following Directions,Limited Range of Motion,Pain,Poor Balance,Poor Safety Awareness M5 PT-IP Objective Assessments Start: 07/17/21 13:38 Freq: NEEDED Status: Discharge Protocol: Document 07/17/21 12:05 AB (Rec: 07/17/21 13:52 AB [id number]) Orientation Orientation/Cognition Level of Alertness Confusional State Orientation Name Language Function Ability Hard of Hearing Safety Awareness Decreased Safety Awareness Memory Description Short Term Impaired Gross Range of Motion Lower Extremity ROM Assessment Within Functional Limits Strength Lower Extremity Strength Assessment Bilaterally Impaired Hip 3+/5 Knee 4-/5 Muscle Tone Muscle Tone WNL Yes M6 PT-IP Treatment Start: 07/17/21 13:38 Freq: NEEDED Status: Discharge Protocol: Document 07/18/21 13:50 AB (Rec: 07/18/21 16:29 AB [email or web address]) Physical Therapy Treatment Education Education Provided Safety M7 PT-IP Assessment and Plan Start: 07/17/21 13:38 Freq: NEEDED Status: Discharge Protocol: Document 07/19/21 11:44 CLB (Rec: 07/19/21 13:14 CLB [id number]) PT Summary Assessment and Plan Potential Rehabilitation Potential Fair Summary Impairments Pain,ROM,Strength,Balance, Coordination,Sensation,Tone, Cognition,Bed Mobility, Transfers,Gait,Activity Tolerance Progress Towards Goals Slow Progress due to Pain,Slow Progress due to Activity Tolerance,Slow Progress - Other Assessment Summary Pt with poor safety awareness requires max verbal cues for sequencing all mobility. Pt continues to require heavy assist with all mobility. Goals Bed Mobility Goal Standby Assistance Transfer Goal Standby Assistance,Cane Gait Goal Standby Assistance,Cane Gait Distance 100 Days to Meet Goals 10 Frequency of Treatment Frequency Of Treatment Twice a Day Treatment Plan Physical Therapy Treatment Plan Bed Mobility Training,Transfer Training,Gait Training, Therapeutic Exercise,Balance Retraining,Discharge Planning, Hot or Cold Pack,Neuromuscular Re-ed,Coordination Retraining Precautions Shoulder Precautions Sling Other Precautions falls, RUE NWB Recommendations To Nursing Amount of Assist Needed 2 Person Assist Discharge Recommendations PT Discharge Recommendations SNF Rehab Transportation Needs at Discharge Private Vehicle,Wheelchair/ Cabulance
--- NOTE | 2021-07-19 12:57 | PC.NURSE ---
Patient up to chair and standing at bedside to get dressed for transfer. Sling adjusted with help from OT, pants on, belongings gathered and placed in patients bag, items included patient's wallet, prescription, and discharge information. Patients watch remains on L wrist. Dentures were in. Patient denied further needs. Discharged via wheelchair with aide and OT to help with transfer into daughters waiting car.
--- NOTE | 2021-07-19 13:00 | OT.IP.TRT ---
Occupational Therapy Treatment Note M2 OT-IP Current Condition Start: 07/18/21 13:44 Freq: Status: Active Protocol: Document 07/18/21 11:37 [facility] (Rec: 07/18/21 14:06 [facility] [id number]) Occupational Therapy Current Condition Current Condition Evaluation Date 07/18/21 Treatment Diagnosis GLF, S/p Right humeral fx, decreased mobility Diagnosis Onset Date 07/16/21 Post Operative Precautions Shoulder Precautions Sling Other Precautions NWB for RUE M3 OT- IP Subjective and Pain Start: 07/18/21 13:44 Freq: Status: Active Protocol: Document 07/19/21 13:08 [facility] (Rec: 07/19/21 13:13 [facility] [id number]) OT- Subjective Occupational Therapy Visit Type Type Treatment Note Visit Start Time 12:40 Visit Stop Time 13:06 Total Visit Minutes 26 Occupational Therapy Visit Comments Patient Comments Pt getting ready to go to SNF. Pt's daughter picking him up to drive him to SNF. OT Pain Assessment Pain When Pain Assessed At Rest Pain Present Pain Present Denied Pain M4 OT- IP ADL's Start: 07/18/21 13:44 Freq: Status: Active Protocol: Document 07/19/21 13:08 [facility] (Rec: 07/19/21 13:13 [facility] [id number]) OT ADL-Dressing General Eval Upper Body Dressing Ability Maximum Assistance Lower Body Dressing Ability Maximum Assistance Areas Needing Assistance Pants/Shorts Comments OT Dressing Comments Pt dependent for the sling management and to help get the gown in place. Assist to get his feet into the pants and assist to help pull up over his hips. M5 OT- IP IADL's Start: 07/18/21 13:44 Freq: Status: Active Protocol: Document 07/18/21 11:37 [facility] (Rec: 07/18/21 14:06 [facility] [id number]) OT-Instrumental Activities of Daily Living Home Safety Awareness Awareness of Need for Assistance at Home Decreased Awareness Medication Management Medication Management Caregiver Administers Money Management Money Management Caregiver Provides Assistance Meal Preparation Meal Preparation Caregiver Provides Assist M6 OT- IP Functional Cognition Start: 07/18/21 13:44 Freq: Status: Active Protocol: Document 07/19/21 13:08 [facility] (Rec: 07/19/21 13:13 [facility] [id number]) Cognitive Factors Limiting Selfcare Function Cognitive Ability Level of Alertness Alert Patient Orientation Name Attention Span Ability Capable of Focused Attention, Capable of Sustained Attention Ability to Follow Commands Able to Follow One Step Commands with Increased Time, Able to Follow One Step Commands with Repetition Safety Awareness Underestimates Need for Assistance Cognitive Comments Cognitive Assessment Comments Pt able to follow commands for mobility and dressing needs. M7 OT- IP Mobility and Balance Start: 07/18/21 13:44 Freq: Status: Active Protocol: Document 07/19/21 13:08 [facility] (Rec: 07/19/21 13:13 [facility] [id number]) OT-Transfer Assessment Sit to and From Stand Sit to and from Stand Moderate Assistance,1 Person Assistance Transfers Transfer Ability Moderate Assistance,1 Person Assistance,2 Person Assistance Technique Transfer Destination Car,Chair,Wheelchair Transfer Technique Stand Step Pivot Devices Transfer Assistive Devices Gait Belt,Large Based Quad Cane Comments Mobility Comments MOD Ax1 to stand to [facility]. MOD A x2 to help step up to a step with [facility] and then up on the running board on the truck and assist to help sit down. OT- Balance Assessment Sitting Balance and Reactions Static Sitting Balance Ability Good Dynamic Sitting Balance Ability Fair Standing Balance and Reactions Static Standing Balance Ability Fair M8 OT- IP Objective Assessments Start: 07/18/21 13:44 Freq: Status: Active Protocol: Document 07/18/21 11:37 [facility] (Rec: 07/18/21 14:06 [facility] [id number]) OT Gross Range of Motion Upper Extremity Range of Motion Assessment Right Impaired OT Strength Upper Extremity Strength Assessment Right Impaired Comments Strength Comments Pt able to open and close his right hand. OT-Muscle Tone Assessment Muscle Tone WNL Yes M9 OT- IP Assessment and Plan Start: 07/18/21 13:44 Freq: Status: Active Protocol: Document 07/19/21 13:08 [facility] (Rec: 07/19/21 13:13 [facility] [id number]) OT Summary Assessment and Plan Potential Rehabilitation Potential Fair Analytic Complexity at Evaluation Moderate Summary Progress Towards Goals Progressing Toward Goals Assessment Summary Pt going to skilled rehab today. Goals Days to Meet Goals 20 Discharge Recommendations OT Discharge Recommendations SNF Rehab Transportation Needs at Discharge Private Vehicle
--- NOTE | 2021-07-19 13:13 | PC.NURSE ---
Called to give report to Lisa. After no answer in the admissions office, I was transferred to rehab unit. I was informed the person was not available for me to speak to. Left my name and extension for the facility to call back to receive report.
== END 2021-07-19 12:50 | DRG 281 ==
LOC: ED 15:42 → AC 16:08
PROVIDERS: Nurse Practitioner Family; Admitting Provider Internal Medicine; Emergency Provider Emergency Medicine; PCP Internal Medicine; Referring Provider Emergency Medicine; Visit Provider Internal Medicine
DX: I21.4 Non-ST elevation (NSTEMI) myocardial infarction (principal); M84.421A Pathological fracture, right humerus, initial encounter for fracture; I13.0 Hypertensive heart and chronic kidney disease with heart failure and stage 1 through stage 4 chronic kidney disease, or unspecified chronic kidney disease; I50.22 Chronic systolic (congestive) heart failure; R55 Syncope and collapse; N18.30 Chronic kidney disease, stage 3 unspecified; G30.9 Alzheimer's disease, unspecified; F02.80 Dementia in other diseases classified elsewhere, unspecified severity, without behavioral disturbance, psychotic disturbance, mood disturbance, and anxiety; J44.9 Chronic obstructive pulmonary disease, unspecified; E11.22 Type 2 diabetes mellitus with diabetic chronic kidney disease; I48.0 Paroxysmal atrial fibrillation; E66.9 Obesity, unspecified; E78.5 Hyperlipidemia, unspecified; Z68.31 Body mass index [BMI] 31.0-31.9, adult; Z79.01 Long term (current) use of anticoagulants; Z79.4 Long term (current) use of insulin; Z87.891 Personal history of nicotine dependence; Z20.822 Contact with and (suspected) exposure to COVID-19
CPT/HCPCS: 36415; 71045; 73030; 80053; 81001; 82550; 82962; 83036; 83735; 83880; 84443; 84484; 85025; 85610; 85730; 87040; 87077; 87086; 87186; 87635; 93005; 93010; 94640; 94760; 96374; 96375; 97162; 97166; 97530; 97535; 99284; 99285; C9803; C8929; J1644; J1815; J1885; J2270; J2405; J7613; Q9957